=== PATIENT | female | born 1940 | race Caucasian/White ===

== ENCOUNTER 2019-05-20 09:48 | Observation (INO) | payer MEDICARE, MEDICAID, SELFPAY ==
--- NOTE | 2019-05-20 10:03 | DI.RAD.S_ITS ---
PROCEDURE: XR CHEST 1V INDICATIONS: chest pain TECHNIQUE: One view of the chest was acquired. COMPARISON: [facility], , CHEST 2 VIEW, 12/08/2010, 16:40. FINDINGS: Surgical changes and devices: None. Lungs and pleura: Lungs are clear. No pleural effusions or pneumothorax. Mediastinum: Mediastinal contours appear normal. Heart size is normal. There is aortic atherosclerosis. Bones and chest wall: No suspicious bony lesions. Overlying soft tissues appear unremarkable. IMPRESSION: Unremarkable chest. No acute cardiopulmonary process is evident. Dictated by: Dannie Welch M.D. on 05/20/2019 at 9:42 Approved by: Dannie Welch M.D. on 05/20/2019 at 9:43
[2019-05-20 10:06] VITALS: BP 126/53; PULSE 64; RESP 16; TEMP 35.9; O2SAT 98
--- NOTE | 2019-05-20 10:08 | ED_ITS ---
HPI - Chest Pain General Chief Complaint: Chest Pain Stated Complaint: chest problems Time Seen by Provider: 05/20/19 10:03 Source: patient Mode of arrival: Ambulatory Limitations: no limitations History of Present Illness HPI narrative: Patient is a 79-year-old female history of hypertension, hyperlipidemia and diabetes who presents with chest discomfort. She says about 4 5 days ago she had intense left-sided chest pain and left arm pain it lasted under 5 minutes while she was watching TV in her recliner. Since then she says her chest has felt heavy it is worse with resting. She says walking around does not bother her and she denies any shortness of breath. He says last night she did have some discomfort that woke her from her sleep and she had to go sleep in a recliner. However she denies any orthopnea or lower extremity edema. She has no known history of coronary artery disease MD complaint: chest pain Onset (ago): day(s) Duration: intermittent Pain location: left chest Severity: moderate Quality: heaviness Pain radiation: none Related Data Home Medications Medication Instructions Recorded Confirmed atenolol 50 mg PO DAILY #0 11/25/10 05/20/19 atorvastatin [Lipitor] 20 mg PO DAILY #0 11/25/10 05/20/19 glimepiride [Amaryl] 4 mg PO DAILY #0 11/25/10 05/20/19 metformin 1,000 mg PO BID #0 11/25/10 05/20/19 acetaminophen-codeine 1 tab PO QID #0 11/27/16 05/20/19 losartan 100 mg PO DAILY #0 11/27/16 05/20/19 triamterene-hydrochlorothiazid 1 tab PO DAILY #0 11/27/16 05/20/19 fexofenadine [Allergy Relief 180 mg PO DAILY 05/20/19 05/20/19 (fexofenadine)] Allergies Allergy/AdvReac Type Severity Reaction Status Date / Time Sulfa (Sulfonamide Allergy Severe ITCHING Unverified 08/15/17 12:16 Antibiotics) [SULFA (SULFONAMIDE ANTIBIOTICS)] Review of Systems Review of Systems Narrative: GENERAL: Denies chills, fatigue, malaise, fever, sweats, travel HEENT: Denies sinus pain, ear pain, sore throat, difficulty swallowing, neck pain RESPIRATORY: Denies dyspnea, cough, wheezing, hemoptysis, sputum. CARDIOVASCULAR: See HPI GASTROINTESTINAL: Denies nausea, vomiting, abdominal pain, diarrhea, constipation, melena. : Denies dysuria, frequency, incontinence, hematuria, urinary retention, flank pain. MUSCULOSKELETAL: Denies weakness, joint pain, or bony pain SKIN: No rash, no erythema, no pruritus NEUROLOGIC: Denies weakness, dizziness, headache, numbness, change in speech, confusion PSYCHIATRIC: No concerning psychosocial issues. 12 point review of systems is negative except for those stated above and HPI Patient History Medical History Diabetes (Acute) Hyperlipidemia (Acute) Hypertension (Acute) Surgical History History of knee replacement Status post ovarian cystectomy Social History Smoking Status: Never smoker Exam Initial Vital Signs Initial Vital Signs: Vital Signs Temperature 96.7 F L 05/20/19 10:06 Pulse Rate 64 05/20/19 10:06 Respiratory Rate 16 05/20/19 10:06 Blood Pressure 126/53 L 05/20/19 10:06 Pulse Oximetry 98 05/20/19 10:06 GENERAL: Well-appearing, well-nourished and in no acute distress. HEENT: Head atraumatic,EOMI, pupils reactive, face symmetric, moist mucous membranes CARDIOVASCULAR: Regular rate and rhythm without murmurs, rubs or gallops. RESPIRATORY: Breath sounds equal bilaterally, no wheezes rales or rhonchi. ABDOMEN: Soft, nontender. Normoactive bowel sounds all 4 quadrants. No guarding or rebound. EXTREMITIES: Normal range of motion, no clubbing or edema. Neurovascularly intact NEUROLOGICAL: Alert and oriented x4.Normal gait and speech. Cranial nerves II through XII grossly intact. SKIN: Warm, dry, no laceration, no petechiae, no rashes or lesions. Scores HEART Score Heart Score history: Moderately Suspicious Heart Score EKG: Normal Heart Score Age: > or = 65 years old Heart Score risk factors: > 3 risk factors or hx of atherosclerotic disease Heart Score troponin: < or = to normal limit Heart Score Total: 5 Course Orders Ordered: ED Orders 05/20/19 10:00 Complete Blood Count AUTO DIFF Stat Comprehensive Metabolic Panel Stat Lipase Stat Partial Thromboplastin Time Stat Prothrombin Time INR Stat Troponin & CK Cardiac Panel Stat 05/20/19 10:03 XR chest 1V Stat EKG-12 Lead Stat Nitroglycerin (Nitrostat) 0.4 mg SL [id number] PRN PRN Reason: Chest Pain Discontinued Medications Aspirin (Aspirin Chew) 324 mg PO NOW ONE Stop: 05/20/19 10:10 Last Admin: 05/20/19 10:20 Dose: 324 mg Documented by: LETICIA Vital Signs Vital signs: Vital Signs - 8 hr 05/20/19 10:06 05/20/19 11:05 Temperature 96.7 F L Pulse Rate 64 59 L Respiratory Rate 16 14 Blood Pressure 126/53 L Blood Pressure [Left Arm] 120/69 Pulse Oximetry 98 MDM - Chest Pain Lab Data Attestation: I reviewed the patient's lab results. Result diagrams: 05/20/19 10:00 05/20/19 10:00 Labs: Lab Results 05/20/19 05/20/19 05/20/19 Range/Units 10:00 10:00 10:00 WBC 6.7 (4.5-11.0) X10^3/uL RBC 4.20 (4.0-5.2) X10^6/uL Hgb 12.3 (12.0-16.0) g/dL Hct 37.8 (36-46) % MCV 90.2 (80-100) fL MCH 29.4 (26-34) PG MCHC 32.6 (30-36) % RDW 14.5 (11.6-14.8) % Plt Count 139 L (150-400) X10^3/uL Neut % (Auto) 46.8 L (50-75) % Lymph % (Auto) 39.4 (25-40) % [place] % (Auto) 5.5 (3-14) % Eos % (Auto) 7.4 H (2-4) % Baso % (Auto) 0.9 (0-2) % Neut # (Auto) 3100 (8418-1732) /uL Lymph # (Auto) 2600 (3143-9465) /uL [place] # (Auto) 400 (0-900) /uL Eos # (Auto) 500 H (0-450) /uL Baso # (Auto) 100 (0-100) /uL PT 11.5 (10.1-12.7) SECONDS INR 1.0 (0.9-1.3) APTT 29 (26.4-36.2) SECONDS Sodium 139 (137-145) mmol/L Potassium 4.4 (3.4-5.1) mmol/L Chloride 102 (98-107) mmol/L Carbon Dioxide 26 (22-32) mmol/L BUN 45 H (7-17) mg/dL Creatinine 1.20 H (0.52-1.04) mg/dL Estimated GFR 43.4 L (>60) mL/min BUN/Creatinine Ratio 37.5 H (6-22) Glucose 175 H (80-110) mg/dL Calcium 9.6 (8.4-10.2) mg/dL Total Bilirubin 0.8 (0.2-1.3) mg/dL AST 48 H (14-36) IU/L ALT 36 H (<35) IU/L Alkaline Phosphatase 65 (38-126) U/L Total Creatine Kinase 43 (30-135) U/L CK-MB (CK-2) TNP CK-MB (CK-2) Rel Index TNP Troponin I < 0.012 (0.01-0.034) ng/mL Total Protein 7.7 (6.3-8.2) g/dL Albumin 4.4 (3.5-5.0) g/dL Globulin 3.3 (1.7-4.1) g/dL Albumin/Globulin Ratio 1.3 (1.0-2.8) Lipase 195 (23-300) U/L Imaging Data Chest x-ray: Radiologist's Impression: PROCEDURE: XR CHEST 1V INDICATIONS: chest pain TECHNIQUE: One view of the chest was acquired. COMPARISON: [facility], CHEST 2 VIEW, 12/08/2010, 16:40. FINDINGS: Surgical changes and devices: None. Lungs and pleura: Lungs are clear. No pleural effusions or pneumothorax. Mediastinum: Mediastinal contours appear normal. Heart size is normal. There is aortic atherosclerosis. Bones and chest wall: No suspicious bony lesions. Overlying soft tissues appear unremarkable. IMPRESSION: Unremarkable chest. No acute cardiopulmonary process is evident. Dictated by: Dannie Welch M.D. on 05/20/2019 at 9:42 ECG Data Attestation: I personally reviewed and interpreted this ECG as follows: Prior ECG tracings: available for review Interpretation: Rhythm rate 66 p.r. interval 187 QRS 93 QTC 438 T-wave inversion noted in lead 3 only similar to previous [place] [address] changes MDM Narrative Medical decision making narrative: The patient is re-evaluated states that she now is having chest heaviness on the left side. However once nurse goes to give her nitroglycerin and the chest heaviness has resolved. She has multiple risk factors. Discussed case with Dr. Nieves who's happy to accept for observation Discharge Plan Departure Patient Disposition: Admitted as Observation Clinical Impression: Chest pain Qualifiers: Chest pain type: other chest pain Qualified Code(s): R07.89 - Other chest pain Discharge Date/Time: 05/20/19 11:59 Admit Date/Time: 05/20/19 11:24 Admit Provider: Mark Nieves
[2019-05-20 10:14] LABS: Add Manual Diff / Slide Review NO; Basophils Absolute Auto 100 /uL (0-100); Basophils Percent Auto 0.9 % (0-2); Eosinophils Absolute Auto 500 /uL (0-450); Eosinophils Percent Auto 7.4 % (2-4); Hematocrit 37.8 % (36-46); Hemoglobin 12.3 g/dL (12.0-16.0); Lymphocytes Absolute Auto 2600 /uL (1100-4500); Lymphocytes Percent Auto 39.4 % (25-40); Mean Corpuscular HGB Conc 32.6 % (30-36); Mean Corpuscular Hemoglobin 29.4 PG (26-34); Mean Corpuscular Volume 90.2 fL (80-100); Monocytes Absolute Auto 400 /uL (0-900); Monocytes Percent Auto 5.5 % (3-14); Neutrophils Absolute Auto 3100 /uL (1500-7000); Neutrophils Percent Auto 46.8 % (50-75); Platelet Count 139 X10^3/uL (150-400); Red Cell Distribution Width 14.5 % (11.6-14.8); White Blood Cell Count 6.7 X10^3/uL (4.5-11.0)
[2019-05-20] MEDS: ASPIRIN 81 MG CHEW TAB 324 MG PO (10:20)
[2019-05-20 10:21] LABS: Prothrombin Time 11.5 SECONDS (10.1-12.7)
[2019-05-20 10:23] LABS: PTT Partial Thromboplastin Tim 29 SECONDS (26.4-36.2)
[2019-05-20 10:25] LABS: Alanine Aminotransferase 36 IU/L (<35); Albumin 4.4 g/dL (3.5-5.0); Albumin Globulin Ratio 1.3 (1.0-2.8); Alkaline Phosphatase 65 U/L (38-126); Aspartate Aminotransferase 48 IU/L (14-36); BUN Creatinine Ratio 37.5 (6-22); Bilirubin Total 0.8 mg/dL (0.2-1.3); Blood Urea Nitrogen 45 mg/dL (7-17); Calcium 9.6 mg/dL (8.4-10.2); Carbon Dioxide 26 mmol/L (22-32); Chloride 102 mmol/L (98-107); Creatine Kinase 43 U/L (30-135); Estimated Glomerular Filt Rate 43.4 mL/min (>60); Globulin 3.3 g/dL (1.7-4.1); Glucose 175 mg/dL (80-110); Lipase 195 U/L (23-300); Potassium 4.4 mmol/L (3.4-5.1); Sodium 139 mmol/L (137-145); Total Protein 7.7 g/dL (6.3-8.2)
[2019-05-20 10:27] LABS: HEMOLYSIS 56 (0-50)
[2019-05-20 10:36] LABS: Troponin I < 0.012 ng/mL (0.01-0.034)
[2019-05-20 11:05] VITALS: BP 120/69; PULSE 59; RESP 14
--- NOTE | 2019-05-20 11:26 | PC.NURSE ---
Dr Tony ordered ntg prn for pain. pt denies chest pain at this time. Dr Tony aware
[2019-05-20 11:30] VITALS: BP 118/68; PULSE 63; RESP 18; O2SAT 100
[2019-05-20 12:20] VITALS: BP 104/56; PULSE 57; RESP 15; TEMP 36.9; O2SAT 97
[2019-05-20 12:23] VITALS: BMI 41.7
--- NOTE | 2019-05-20 14:24 | PC.NURSE ---
Admit/Discharge Pt admitted to room 103 from ER via wheelchair at 1210. Steady on feet, ambulated from wheelchair to bed. Denies any chest pain or heaviness. SB in the upper 50s. Valuables placed in safe - see admit assessment for further details on belongings. Oriented to room and to call light/tv/bed controls. Patient reported at about 1300 that she would like to sign herself out when her daughter arrives. States I was told I didn't have a heart attack and want to go home. Reviewed risks of leaving at this time and encouraged pt to stay overnight for monitoring and further testing. Pt acknowledged understanding. Dr. Nieves updated. Pt discharged AMA with daughter at 1420. Valuables retrieved from safe and signed back to pt. Glasses, walker, clothing, cell phone, purse, and wallet all with pt. Message left for Dr. Nieves to update on patient's AMA d/c.
== END 2019-05-20 14:20 | disposition left against medical advice (07) ==
LOC: ED 11:24 → AC 11:24 → ICU 12:00
PROVIDERS: Admitting Provider Family Medicine; Emergency Provider Emergency Medicine; PCP Student in an Organized Health Care Education/Training Program; Visit Provider Family Medicine
DX: Z53.29 Procedure and treatment not carried out because of patient's decision for other reasons (principal); R07.9 Chest pain, unspecified; I10 Essential (primary) hypertension; E78.5 Hyperlipidemia, unspecified; E11.9 Type 2 diabetes mellitus without complications; Z79.84 Long term (current) use of oral hypoglycemic drugs
CPT/HCPCS: 36415; 71045; 80053; 82550; 83690; 84484; 85025; 85610; 85730; 87797; 93005; 99284; 99285; G0378

== ENCOUNTER → 2019-06-18 11:11 | Outpatient (CLI) | payer MEDICARE, MEDICAID, SELFPAY ==
[2019-05-20 12:23] VITALS: BMI 41.7
--- NOTE | 2019-06-18 | DI.CT.S_ITS ---
PROCEDURE: CT ABDOMEN PELVIS W CON INDICATIONS: Unspecified abdominal pain TECHNIQUE: After the administration of oral and intravenous contrast, 5 mm thick sections acquired from the diaphragms to the symphysis. 5 mm thick coronal and sagittal reformats were performed. For radiation dose reduction, the following was used: automated exposure control, adjustment of mA and/or kV according to patient size. COMPARISON: None. FINDINGS: Image quality: Excellent. ABDOMEN: Lung bases: Lung bases are clear. Heart size is normal. Scattered atherosclerotic calcifications of the coronary arteries are noted. Solid organs: Liver is normal in size and enhancement. Diffuse hepatic steatosis. Gallbladder contains numerous rim calcified gallstones. No CT evidence for significant pericholecystic stranding or. Biliary system is non-dilated. Pancreas enhances normally. Spleen is normal in size and enhancement. No adrenal nodules. Kidneys are normal in size and enhancement, without hydronephrosis. Bilateral renal cortical irregularity/scarring likely related to remote infection. Peritoneum and bowel: Stomach, small bowel, and colon loops are normal in caliber and wall thickness. Scattered colonic diverticulosis predominantly in the sigmoid colon. No evidence for acute diverticulitis. Moderate fecal burden seen in the ascending and transverse colon. No free fluid or air. Nodes and vessels: No retroperitoneal or mesenteric adenopathy. Aorta and inferior vena cava are normal in caliber. Scattered atherosclerotic calcifications of the abdominal aorta and iliac vessels without aneurysmal dilatation. Miscellaneous: Lobulated fat-containing umbilical hernia without acute inflammation. PELVIS: Genitourinary: Bladder wall thickness is normal. The uterus is not visualized and presumably surgically absent. Miscellaneous: No inguinal hernias or adenopathy. Bones: No suspicious bony lesions. No acute vertebral body compression fractures. Multilevel spondylitic changes throughout the imaged spine. IMPRESSION: 1. Cholelithiasis. If there is clinical concern for persistent upper abdominal pain, further evaluation with ultrasound can be considered. 2. Colonic diverticulosis without evidence for acute diverticulitis. 3. Moderate fecal load visualized in the distal ascending colon, transverse colon, and proximal descending colon. 4. Fat containing umbilical hernia without acute inflammation. Dictated by: Ever Caceres M.D. on 06/18/2019 at 16:06 Approved by: Ever Caceres M.D. on 06/18/2019 at 16:15
== END ==
PROVIDERS: PCP Student in an Organized Health Care Education/Training Program; Referring Provider Student in an Organized Health Care Education/Training Program; Visit Provider Student in an Organized Health Care Education/Training Program
DX: R10.9 Unspecified abdominal pain (principal); K76.0 Fatty (change of) liver, not elsewhere classified; K80.20 Calculus of gallbladder without cholecystitis without obstruction; K57.30 Diverticulosis of large intestine without perforation or abscess without bleeding; K42.9 Umbilical hernia without obstruction or gangrene; I70.0 Atherosclerosis of aorta; I25.10 Atherosclerotic heart disease of native coronary artery without angina pectoris
CPT/HCPCS: 74177; Q9967

== ENCOUNTER → 2019-06-26 12:23 | Outpatient (CLI) | payer MEDICARE, MEDICAID, SELFPAY ==
--- NOTE | 2019-06-26 | DI.US.S_ITS ---
PROCEDURE: US ABDOMEN LIMITED INDICATIONS: RIGHT UPPER QUADRANT PAIN TECHNIQUE: Real-time focused scanning was performed of the abdomen, with image documentation. COMPARISON: None. FINDINGS: Hepatic echotexture is hyperechoic, coarse, consistent with underlying cirrhosis. The gallbladder contains stones, filling much of the gallbladder lumen with stones measuring up to 2 centimeters in dimension. The bile ducts are not distended. The pancreas could not be seen due to body habitus and bowel gas. IMPRESSION: Limited quality evaluation due to 2 body habitus and bowel gas. Multiple stones fill the gallbladder lumen. The liver parenchyma is quite poorly visualized but appears coarse, likely reflecting cirrhosis Dictated by: Tom Sigala M.D. on 06/26/2019 at 13:41 Approved by: Tom Sigala M.D. on 06/26/2019 at 13:44
== END ==
PROVIDERS: PCP Student in an Organized Health Care Education/Training Program; Referring Provider Student in an Organized Health Care Education/Training Program; Visit Provider Student in an Organized Health Care Education/Training Program
DX: R10.11 Right upper quadrant pain (principal); K80.20 Calculus of gallbladder without cholecystitis without obstruction
CPT/HCPCS: 76705

== ENCOUNTER → 2019-07-16 12:10 | Outpatient (CLI) | payer MEDICARE, MEDICAID, SELFPAY ==
[2019-07-03 09:40] VITALS: BMI 41.7
--- NOTE | 2019-07-17 17:07 | DI.NM.S_ITS ---
DATE OF SERVICE: 07/16/2019 PROCEDURE PERFORMED: Pharmacologic vasodilator stress and rest myocardial perfusion imaging with gating to assess ejection fraction and regional wall motion. ORDERING PROVIDER: Dr. Sindhu Green. INDICATION: The patient is a 79-year-old obese, diabetic female recently evaluated for chest discomfort. PHARMACOLOGIC STRESS: Per protocol, 0.4 mg of regadenoson was infused with a normal hemodynamic response. She had no chest discomfort. The resting ECG is normal and there are no ischemic changes with stress. Per protocol, 24.9 mCi of technetium-99m Myoview was injected and she was imaged 20 minutes later using a gated SPECT acquisition protocol. The previous day, she had been injected with 26.7 mCi of technetium-99m Myoview and imaged 30 minutes later, again using a gated SPECT protocol. FINDINGS: 1. RAW DATA: There is fair myocardial tracer uptake with marginal image quality, in part because of very prominent breast shadows that clearly produce significant attenuation artifact. Unfortunately, the patient was unable to lay prone. Her lung-heart ratio was normal at 0.29 with a normal TID ratio of 0.88. 2. QUANTITATED GATED SPECT: Post-stress ejection fraction is estimated at 75% without any focal wall motion abnormality and specifically the inferolateral wall appears to have normal contractility. The resting ejection fraction is 69% with a similar contraction pattern and a resting end-diastolic volume of 110 mL. 3. MYOCARDIAL PERFUSION IMAGING: Post-stress supine images are of marginal quality but there is a mild perfusion defect in the proximal inferior wall, extending into the mid to distal inferolateral wall in a pattern consistent with diaphragmatic attenuation artifact. There are no prone images to assess for this. The resting images show an identical perfusion pattern without any areas of improvement. Given the absence of any wall motion abnormality in this area, this most likely represents attenuation artifact, although previous infarction cannot be entirely excluded. CONCLUSION: 1. Probable normal myocardial perfusion study but with mildly reduced sensitivity because of marginal image quality. 2. Small to moderate fixed proximal inferior and mid to distal inferolateral perfusion defect that likely reflects attenuation artifact given the absence of any wall motion abnormality in this distribution, but a previous nontransmural infarction cannot be entirely excluded. There is no compelling evidence for myocardial ischemia. 3. Normal left ventricular systolic function without any focal wall motion abnormality. 4. No angina or ECG evidence of ischemia with pharmacologic vasodilator stress. Madisyn Covarrubias - Claire doc#: [id number]/job#: [id number] dd: 07/17/2019 16:30:00 dt: 07/17/2019 16:53:00 DICTATING MD/COPIES TO: Mark Barkley MD; Sindhu Green MD COPIES MNE: KEILA;
== END ==
PROVIDERS: PCP Student in an Organized Health Care Education/Training Program; Referring Provider Student in an Organized Health Care Education/Training Program; Visit Provider Student in an Organized Health Care Education/Training Program
DX: R07.89 Other chest pain (principal); E11.9 Type 2 diabetes mellitus without complications; E66.9 Obesity, unspecified; K80.50 Calculus of bile duct without cholangitis or cholecystitis without obstruction
CPT/HCPCS: 78452; 93017; 99214; A9502; J2785

== ENCOUNTER → 2019-07-23 12:53 | Outpatient (CLI) | payer MEDICARE, MEDICAID, SELFPAY ==
[2019-07-03 09:40] VITALS: BMI 41.7
--- NOTE | 2019-07-23 | DI.MG.S_ITS ---
BILATERAL DIGITAL DIAGNOSTIC MAMMOGRAM 3D/2D: 07/23/2019 CLINICAL: Left breast pain. Baseline. No prior exams were available for comparison. The tissue of both breasts is predominantly fatty. There is no abnormality seen in the left breast to correspond with the palpable abnormality at 11 o'clock in the posterior depth. There is possible irregular architectural distortion in the left breast at 1 o'clock middle depth. This is less prominent with additional views. No other significant masses, calcifications, or other findings are seen in either breast. IMPRESSION: INCOMPLETE: NEEDS ADDITIONAL IMAGING EVALUATION There is no abnormality seen in the left breast to correspond with the palpable abnormality at 11 o'clock in the posterior depth, however, ultrasound is recommended. The possible irregular architectural distortion in the left breast is indeterminate. An ultrasound is recommended. This was performed immediately following this exam. This exam was interpreted at Station ID: [id number]. NOTE: For mammograms, a report in lay terms will be sent to the patient. Approximately 15% of breast malignancies will not be visualized mammographically. In the management of a palpable breast mass, a negative mammogram must not discourage biopsy of a clinically suspicious lesion. Electronically Signed By: Judie guerra/:07/23/2019 14:07:35 ACR BI-RADS Category 0: Incomplete [id number]
--- NOTE | 2019-07-23 | DI.US.S_ITS ---
LIMITED ULTRASOUND OF LEFT BREAST: 07/23/2019 CLINICAL: Left breast pain and focal area of asymetry. No prior exams were available for comparison. Real-time ultrasound of the left breast 12 o'clock region was performed. [place] scale images of the real-time examination were reviewed. No significant abnormalities were seen sonographically in the left breast. Specifically, no finding to correspond to the patient's palpable abnormality 11 cm from nipple at 12:00. Additionally, no finding in the 12:00 area more anterior in the breast to correspond to the mammographic finding of possible architectural distortion. IMPRESSION: PROBABLY BENIGN No sonographic findings in the area of palpable abnormality or in the area of architectural distortion on mammogram. This area is probably benign fibrous tissue. A follow-up left mammogram in 6 months is recommended to demonstrate stability given lack of prior studies for comparison. Findings and recommendations were conveyed to the patient at time of exam. This exam was interpreted at Station ID: [id number]. Electronically Signed By: Judie guerra/:07/23/2019 14:33:23 letter sent: Followup Recommended Ultrasound BI-RADS: 3 Probably benign
== END ==
PROVIDERS: PCP Student in an Organized Health Care Education/Training Program; Referring Provider Student in an Organized Health Care Education/Training Program; Visit Provider Student in an Organized Health Care Education/Training Program
DX: R92.8 Other abnormal and inconclusive findings on diagnostic imaging of breast (principal); N64.4 Mastodynia; N64.89 Other specified disorders of breast
CPT/HCPCS: 76642; 77066; G0279

== ENCOUNTER → 2020-02-05 13:55 | Outpatient (CLI) | payer MEDICARE, MEDICAID, SELFPAY ==
[2019-07-03 09:40] VITALS: BMI 41.7
--- NOTE | 2020-02-05 | DI.MG.S_ITS ---
UNILATERAL LEFT DIGITAL DIAGNOSTIC MAMMOGRAM 3D/2D SHORT-TERM FOLLOW-UP: 02/05/2020 CLINICAL: Short term follow up for the left breast. Comparison is made to exams dated: 07/23/2019 ultrasound and 07/23/2019 mammogram [facility]. The tissue of left breast is predominantly fatty. No significant masses, calcifications, or other findings are seen in the breast. IMPRESSION: NEGATIVE There is no mammographic evidence of malignancy. Return to annual mammogram screening schedule is recommended. Findings and recommendations were conveyed to the patient at time of exam. This exam was interpreted at Station ID: [id number]. NOTE: For mammograms, a report in lay terms will be sent to the patient. Approximately 15% of breast malignancies will not be visualized mammographically. In the management of a palpable breast mass, a negative mammogram must not discourage biopsy of a clinically suspicious lesion. Electronically Signed By: Judie guerra/:02/05/2020 14:44:19 letter sent: Normal Exam ACR BI-RADS Category 1: Negative [id number]
== END ==
PROVIDERS: PCP Student in an Organized Health Care Education/Training Program; Referring Provider Student in an Organized Health Care Education/Training Program; Visit Provider Student in an Organized Health Care Education/Training Program
DX: R92.8 Other abnormal and inconclusive findings on diagnostic imaging of breast (principal)
CPT/HCPCS: 77065; G0279

== ENCOUNTER 2020-05-05 17:08 | Emergency (ER) | payer MEDICARE, MEDICAID, SELFPAY ==
[2019-07-03 09:40] VITALS: BMI 41.7
[2020-05-05] VITALS (22 sets, daily range): BP systolic 106–135; BP diastolic 55–91; PULSE 61–74; RESP 16–18; TEMP 36.8–36.9; O2SAT 98–100; BMI 39.9
[2020-05-05 18:00] LABS: Add Manual Diff / Slide Review NO; Basophils Absolute Auto 100 /uL (0-100); Basophils Percent Auto 0.9 % (0-2); Eosinophils Absolute Auto 400 /uL (0-450); Eosinophils Percent Auto 4.6 % (2-4); Hematocrit 28.5 % (36-46); Hemoglobin 9.2 g/dL (12.0-16.0); Lymphocytes Absolute Auto 3300 /uL (1100-4500); Lymphocytes Percent Auto 36.9 % (25-40); Mean Corpuscular HGB Conc 32.1 % (30-36); Mean Corpuscular Hemoglobin 28.7 PG (26-34); Mean Corpuscular Volume 89.3 fL (80-100); Monocytes Absolute Auto 400 /uL (0-900); Monocytes Percent Auto 4.5 % (3-14); Neutrophils Absolute Auto 4800 /uL (1500-7000); Neutrophils Percent Auto 53.1 % (50-75); Red Cell Distribution Width 17.1 % (11.6-14.8)
[2020-05-05 18:02] LABS: Alanine Aminotransferase 22 IU/L (<35); Albumin Globulin Ratio 1.3 (1.0-2.8); Alkaline Phosphatase 60 U/L (38-126); Aspartate Aminotransferase 24 IU/L (14-36); BUN Creatinine Ratio 31.3 (6-22); Bilirubin Total 0.6 mg/dL (0.2-1.3); Blood Urea Nitrogen 45 mg/dL (7-17); Calcium 8.9 mg/dL (8.4-10.2); Carbon Dioxide 22 mmol/L (22-32); Chloride 104 mmol/L (98-107); Estimated Glomerular Filt Rate 35.2 mL/min (>60); Glucose 190 mg/dL (80-110); HEMOLYSIS < 15 (0-50); Potassium 4.7 mmol/L (3.4-5.1); Sodium 134 mmol/L (137-145)
--- NOTE | 2020-05-05 18:08 | ED.RECABL ---
HPI - Recheck/Abnormal Lab/Rx General Chief Complaint: Recheck/Abnormal Lab/Rx Stated Complaint: STATES SENT FOR BLOOD TRANSFUSION Time Seen by Provider: 05/05/20 18:01 Source: patient and old records reviewed Mode of arrival: Ambulatory Limitations: no limitations History of Present Illness HPI narrative: This is a 79-year-old female who is sent to the emergency department for low platelets. Platelets were 5 on outpatient labs that were drawn 07/2019 patient states that she has never been told this in the past but she noted having bruising on her hand in February and has increasing bruising, petechiae and changes since then. Patient denies any bleeding other than nose bleeds. No hemoptysis, no hematemesis, no melena or bright red blood with stools. She states occasionally mild headaches but nothing recently. No vision changes. Occasional mild chest pain. No shortness of breath. No nausea, no vomiting. No diarrhea constipation. She states she has to urinate hour to every hour and a half secondary to a prior bladder surgery and chronic bladder issues and is requesting a [place] catheter. Patient has diabetes type 2, dyslipidemia, hypertension. She has known gallstones. She states she had bladder surgery, patient had a large ovarian tumor removed remotely. Denies allergies. No tobacco, alcohol or illicit. Her primary care physician is Sindhu Green. Related Data Home Medications Medication Instructions Recorded Confirmed atenolol 50 mg PO DAILY #0 11/25/10 07/16/19 atorvastatin [Lipitor] 20 mg PO DAILY #0 11/25/10 07/16/19 glimepiride [Amaryl] 4 mg PO DAILY #0 11/25/10 07/16/19 metformin 1,000 mg PO BID #0 11/25/10 07/16/19 acetaminophen-codeine 1 tab PO QID #0 11/27/16 07/16/19 losartan 100 mg PO DAILY #0 11/27/16 07/16/19 triamterene-hydrochlorothiazid 1 tab PO DAILY #0 11/27/16 07/16/19 fexofenadine [Allergy Relief 180 mg PO DAILY 05/20/19 07/16/19 (fexofenadine)] Lactobacillus cap PO 07/16/19 07/16/19 no.51-Bifidobacterium no.4 50 billion cell capsule Allergies Allergy/AdvReac Type Severity Reaction Status Date / Time Sulfa (Sulfonamide Allergy Severe ITCHING Verified 05/05/20 17:17 Antibiotics) [SULFA (SULFONAMIDE ANTIBIOTICS)] Review of Systems Review of Systems ROS Unobtainable: All systems reviewed & are unremarkable except as noted in HPI and below Patient History Medical History Chest pain Cystocele with rectocele Diabetes Hyperlipidemia Hypertension Surgical History History of knee replacement Status post ovarian cystectomy Social History Smoking Status: Never smoker Smoking Status: Never smoker alcohol intake frequency: holidays/special occasions only Substance Use Type: does not use Exam Narrative Exam Narrative: GEN: well nourished, well appearing elderly female, alert and oriented x 3, patient appears to be in mild distress. HEENT: Atraumatic, pupils are equal round reactive to light, extraocular movements are intact, nares are clear. HEART: Regular rate and rhythm without murmur, clicks, rubs. LUNGS:Lungs clear to auscultation, no wheezes, rales, crackles, chest moves symmetrically ABD:bowel sounds normal, soft, non-tender, no guarding, rebound, rigidity, no masses noted, no hepatosplenomegaly MSCL: Non-tender, no muscle atrophy, muscles strength 5/5 upper and lower extremities, full range of motion, normal gait NEURO:CN 2-12 intact, sensation normal SKIN: Patient has multiple areas of ecchymosis, petechiae and hematoma on her torso, extremities and abdomen. Initial Vital Signs Initial Vital Signs: Vital Signs Temperature 98.3 F 05/05/20 17:10 Pulse Rate 74 05/05/20 17:10 Respiratory Rate 18 05/05/20 17:10 Blood Pressure 135/62 05/05/20 17:10 Pulse Oximetry 99 05/05/20 17:10 Scores GCS [place] coma scale eye opening: Spontaneous Aaliyah coma scale verbal response: Orientated Aaliyah coma scale motor response: Obey commands Aaliyah coma scale total score: 15 Course Orders Ordered: ED Orders 05/05/20 17:36 BNP [NT-proBNP (BNP-Adult 18+)] Stat Complete Blood Count AUTO DIFF Stat Comprehensive Metabolic Panel Stat Platelets Stat Thyroid Stimulating Hormone Stat Type and Screen Stat 05/05/20 18:20 CT head/brain wo con Stat 05/05/20 18:25 COVID19 Stat Reevaluation(s) Reevaluation #1: Patient updated on lab findings, platelets are in route. Imaging was pushed to [facility] and waiting call back Time: 20:41 Consultations Consultation #1: Spoke with ED physician at [facility], Dr. Ramos accepts for transfer. Plan for ALS ground. Will start platelets if the arrive prior to transport. Plan for transfer second to patient requiring multiple specialties and platelets come from [place]. Time: 20:52 Vital Signs Vital signs: Vital Signs - 8 hr 05/05/20 17:10 05/05/20 18:45 05/05/20 18:47 Temperature 98.3 F Pulse Rate 74 64 62 Respiratory Rate 18 18 Blood Pressure 135/62 117/55 L Pulse Oximetry 99 98 100 05/05/20 19:09 05/05/20 19:10 05/05/20 19:30 Temperature Pulse Rate 69 67 70 Respiratory Rate 16 Blood Pressure 126/91 H 106/61 Pulse Oximetry 100 100 100 05/05/20 20:00 05/05/20 20:30 05/05/20 21:00 Temperature Pulse Rate 64 65 Respiratory Rate Blood Pressure 113/56 L 110/55 L 124/58 L Pulse Oximetry 100 100 05/05/20 21:25 05/05/20 21:30 05/05/20 21:41 Temperature 98.3 F 98.5 F Pulse Rate 69 67 63 Respiratory Rate 16 16 Blood Pressure 115/56 L 116/57 L 114/56 L Pulse Oximetry 99 99 05/05/20 21:44 05/05/20 22:00 05/05/20 22:01 Temperature Pulse Rate 63 63 63 Respiratory Rate Blood Pressure 114/56 L 119/58 L Pulse Oximetry 100 99 99 05/05/20 22:15 05/05/20 22:25 05/05/20 22:26 Temperature 98.3 F Pulse Rate 64 61 62 Respiratory Rate 16 16 Blood Pressure 119/58 L 112/59 L 112/59 L Pulse Oximetry 100 05/05/20 22:30 05/05/20 22:41 Temperature 98.4 F Pulse Rate 61 63 Respiratory Rate 16 Blood Pressure 115/59 L 115/58 L Pulse Oximetry 100 MDM - Recheck/Abnormal Lab/Rx Lab Data Attestation: I reviewed the patient's lab results. Result diagrams: 05/05/20 17:36 05/05/20 17:36 Labs: Lab Results 05/05/20 05/05/20 05/05/20 Range/Units 17:36 17:36 17:36 WBC 9.0 (4.5-11.0) X10^3/uL RBC 3.20 L (4.0-5.2) X10^6/uL Hgb 9.2 L (12.0-16.0) g/dL Hct 28.5 L (36-46) % MCV 89.3 (80-100) fL MCH 28.7 (26-34) PG MCHC 32.1 (30-36) % RDW 17.1 H (11.6-14.8) % Plt Count 3 L* (150-400) X10^3/uL Neut % (Auto) 53.1 (50-75) % Lymph % (Auto) 36.9 (25-40) % [place] % (Auto) 4.5 (3-14) % Eos % (Auto) 4.6 H (2-4) % Baso % (Auto) 0.9 (0-2) % Neut # (Auto) 4800 (1593-7962) /uL Lymph # (Auto) 3300 (4904-6295) /uL [place] # (Auto) 400 (0-900) /uL Eos # (Auto) 400 (0-450) /uL Baso # (Auto) 100 (0-100) /uL RBC Morphology See below Polychromasia 1+ H Poikilocytosis 1+ H Anisocytosis 1+ H Sodium 134 L (137-145) mmol/L Potassium 4.7 (3.4-5.1) mmol/L Chloride 104 (98-107) mmol/L Carbon Dioxide 22 (22-32) mmol/L BUN 45 H (7-17) mg/dL Creatinine 1.44 H (0.52-1.04) mg/dL Estimated GFR 35.2 L (>60) mL/min BUN/Creatinine Ratio 31.3 H (6-22) Glucose 190 H (80-110) mg/dL Calcium 8.9 (8.4-10.2) mg/dL Total Bilirubin 0.6 (0.2-1.3) mg/dL AST 24 (14-36) IU/L ALT 22 (<35) IU/L Alkaline Phosphatase 60 (38-126) U/L NT-Pro-B Natriuret Pep 372 (<450) pg/mL Total Protein 7.0 (6.3-8.2) g/dL Albumin 4.0 (3.5-5.0) g/dL Globulin 3.0 (1.7-4.1) g/dL Albumin/Globulin Ratio 1.3 (1.0-2.8) TSH (0.47-4.68) uIU/mL SARS-CoV-2 (PCR) (Negative) Blood Type A Positive Antibody Screen Negative 05/05/20 05/05/20 Range/Units 17:36 18:25 WBC (4.5-11.0) X10^3/uL RBC (4.0-5.2) X10^6/uL Hgb (12.0-16.0) g/dL Hct (36-46) % MCV (80-100) fL MCH (26-34) PG MCHC (30-36) % RDW (11.6-14.8) % Plt Count (150-400) X10^3/uL Neut % (Auto) (50-75) % Lymph % (Auto) (25-40) % [place] % (Auto) (3-14) % Eos % (Auto) (2-4) % Baso % (Auto) (0-2) % Neut # (Auto) (7562-0111) /uL Lymph # (Auto) (0693-9203) /uL [place] # (Auto) (0-900) /uL Eos # (Auto) (0-450) /uL Baso # (Auto) (0-100) /uL RBC Morphology Polychromasia Poikilocytosis Anisocytosis Sodium (137-145) mmol/L Potassium (3.4-5.1) mmol/L Chloride (98-107) mmol/L Carbon Dioxide (22-32) mmol/L BUN (7-17) mg/dL Creatinine (0.52-1.04) mg/dL Estimated GFR (>60) mL/min BUN/Creatinine Ratio (6-22) Glucose (80-110) mg/dL Calcium (8.4-10.2) mg/dL Total Bilirubin (0.2-1.3) mg/dL AST (14-36) IU/L ALT (<35) IU/L Alkaline Phosphatase (38-126) U/L NT-Pro-B Natriuret Pep (<450) pg/mL Total Protein (6.3-8.2) g/dL Albumin (3.5-5.0) g/dL Globulin (1.7-4.1) g/dL Albumin/Globulin Ratio (1.0-2.8) TSH 1.90 (0.47-4.68) uIU/mL SARS-CoV-2 (PCR) Negative (Negative) Blood Type Antibody Screen Imaging Data CT scan - head: Radiologist's Impression: [address] [id number] Scan ReportSigned Patient: Madisyn Covarrubias BMR#: [id number]: 2Acct:[id number]/Sex: 79 / FDate of Service: 05/05/20Loc: EDAccession Number: [id number] Procedure: CT head/brain wo con Ordering Provider: Gwendolyn Guzmán D.O. PROCEDURE: CT HEAD/BRAIN WO CON INDICATIONS: platelets of 3, no symptoms TECHNIQUE: Noncontrast 4.5 mm thick angled axial sections acquired from the foramen magnum to the vertex, with coronal and sagittal reformats. For radiation dose reduction, the following was used: automated exposure control, adjustment of mA and/or kV according to patient size. COMPARISON: [facility], CT, HEAD WITHOUT CONTRAST, 08/23/2010, 15:41. FINDINGS: Image quality: Excellent. CSF spaces: Basal cisterns are patent. No extra-axial fluid collections. The ventricles are symmetric in size and shape. Brain: A tiny hyperdense focus is seen within the left posterior temporal lobe measuring 0.5 x 0.5 x 0.[address] number of 67 Hounsfield units. Findings are best seen on image 14 of axial series 2 and image 34 of coronal series 4. . There is cerebral volume loss for age, with resultant ventricular and sulcal prominence. There are periventricular and deep white matter chronic small vessel ischemic changes. There is intracranial internal carotid artery atherosclerosis. Skull and face: Calvarium and visualized facial bones appear intact, without suspicious lesions. Sinuses: Visualized sinuses and mastoids are clear. IMPRESSION: 5 x 5 x 4 mm hyperdense focus in the posterior left temporal lobe is suspicious for a very small acute intraparenchymal hematoma. There is no significant surrounding edema or mass effect. Findings were discussed with the ordering provider, Dr. Guzmán, by telephone on 05/05/2020 at 7:31 PM. Dictated by: Harlan Rodriguez M.D. on 05/05/2020 at 19:25 Approved by: Harlan Rodriguez M.D. on 05/05/2020 at 19:34 [facility] Narrative Medical decision making narrative: Patient arrives with outpatient labs showing platelets of 5 repeat shows platelets of 3. Head CT was ordered patient has been asymptomatic but has high risk of spontaneous bleed and there does appear to be a small bleed noted, no mass effect or edema appreciated. Patient requiring platelet transfusion which is not available here we obtain or platelets from [place] which is a [address], she also needs multiple specialty care gluten neuro surgery which we do not have available. 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 Labs otherwise do not show any major new abnormalities, hemoglobin is 9 down from 12 in May of 2019. Chronic kidney disease appears stable. Negative neuro evaluation. Critical Care Time Critical Care Time Critical Care Time: Yes Total Critical Care Time: 45 Attestation: The high probability of a clinically significant, sudden or life threatening deterioration of the [neurologic] system(s) required my full and direct attention, intervention and personal management. The aggregate critical care time was [45] minutes. This time is in addition to time spent performing reported procedures but includes the following: [x] Data Review and interpretation [x] Patient assessment and monitoring of vital signs [x] Documentation [x] Medication orders and management Discharge Plan Departure Patient Disposition: Xfer [facility] Clinical Impression: Thrombocytopenia, Intracranial bleed Prescriptions: No Action atorvastatin [Lipitor] 20 MG tablet 20 mg PO DAILY Qty: 0 RF: 0 metformin 1,000 MG tablet 1,000 mg PO BID Qty: 0 RF: 0 glimepiride [Amaryl] 4 MG tablet 4 mg PO DAILY Qty: 0 RF: 0 atenolol 50 MG tablet 50 mg PO DAILY Qty: 0 RF: 0 triamterene-hydrochlorothiazid 37.5 MG/25 MG tablet 1 tab PO DAILY Qty: 0 RF: 0 losartan 100 MG tablet 100 mg PO DAILY Qty: 0 RF: 0 acetaminophen-codeine 30 MG/300 MG tablet 1 tab PO QID Qty: 0 RF: 0 up4 Probiotics Ultra 50 billion cell capsule PO RF: 0 fexofenadine [Allergy Relief (fexofenadine)] 180 mg Tablet 180 mg PO DAILY RF: 0 Referrals: Sindhu Green MD [Primary Care Provider] -
[2020-05-05 18:11] LABS: NT-proBNP (BNP-Adult 18+) 372 pg/mL (<450)
[2020-05-05 18:15] LABS: Platelet Count 3 X10^3/uL (150-400)
[2020-05-05 18:17] LABS: Anisocytosis 1+; Poikilocytosis 1+; Polychromasia 1+
--- NOTE | 2020-05-05 18:20 | DI.CT.S_ITS ---
PROCEDURE: CT HEAD/BRAIN WO CON INDICATIONS: platelets of 3, no symptoms TECHNIQUE: Noncontrast 4.5 mm thick angled axial sections acquired from the foramen magnum to the vertex, with coronal and sagittal reformats. For radiation dose reduction, the following was used: automated exposure control, adjustment of mA and/or kV according to patient size. COMPARISON: [facility], CT, HEAD WITHOUT CONTRAST, 08/23/2010, 15:41. FINDINGS: Image quality: Excellent. CSF spaces: Basal cisterns are patent. No extra-axial fluid collections. The ventricles are symmetric in size and shape. Brain: A tiny hyperdense focus is seen within the left posterior temporal lobe measuring 0.5 x 0.5 x 0.[address] number of 67 Hounsfield units. Findings are best seen on image 14 of axial series 2 and image 34 of coronal series 4. . There is cerebral volume loss for age, with resultant ventricular and sulcal prominence. There are periventricular and deep white matter chronic small vessel ischemic changes. There is intracranial internal carotid artery atherosclerosis. Skull and face: Calvarium and visualized facial bones appear intact, without suspicious lesions. Sinuses: Visualized sinuses and mastoids are clear. IMPRESSION: 5 x 5 x 4 mm hyperdense focus in the posterior left temporal lobe is suspicious for a very small acute intraparenchymal hematoma. There is no significant surrounding edema or mass effect. Findings were discussed with the ordering provider, Dr. Guzmán, by telephone on 05/05/2020 at 7:31 PM. Dictated by: Harlan Rodriguez M.D. on 05/05/2020 at 19:25 Approved by: Harlan Rodriguez M.D. on 05/05/2020 at 19:34
[2020-05-05 18:48] LABS: COVID19 -Nasal RAPID Negative (Negative)
== END 2020-05-05 23:07 | disposition short-term general hospital (02) ==
PROVIDERS: Emergency Medicine; Emergency Provider Emergency Medicine; PCP Student in an Organized Health Care Education/Training Program
DX: D69.6 Thrombocytopenia, unspecified (principal); I62.9 Nontraumatic intracranial hemorrhage, unspecified; E11.9 Type 2 diabetes mellitus without complications; E78.5 Hyperlipidemia, unspecified; I10 Essential (primary) hypertension; Z20.828 Contact with and (suspected) exposure to other viral communicable diseases
CPT/HCPCS: 36415; 36430; 70450; 80053; 83880; 84443; 85025; 86850; 86900; 86901; 86945; 87635; 99284; 99291; P9016; P9035

== ENCOUNTER 2020-05-17 18:30 | Emergency (ER) | payer MEDICARE, MEDICAID, SELFPAY ==
[2019-07-03 09:40] VITALS: BMI 41.7
[2020-05-17 18:32] VITALS: BP 128/67; PULSE 128; RESP 24; TEMP 36.3; O2SAT 100
[2020-05-17 19:11] LABS: Add Manual Diff / Slide Review NO; Basophils Absolute Auto 100 /uL (0-100); Basophils Percent Auto 0.8 % (0-2); Eosinophils Absolute Auto 300 /uL (0-450); Eosinophils Percent Auto 3.1 % (2-4); Hemoglobin 10.6 g/dL (12.0-16.0); Lymphocytes Absolute Auto 3100 /uL (1100-4500); Lymphocytes Percent Auto 32.8 % (25-40); Mean Corpuscular HGB Conc 32.2 % (30-36); Mean Corpuscular Hemoglobin 28.3 PG (26-34); Mean Corpuscular Volume 87.9 fL (80-100); Monocytes Absolute Auto 500 /uL (0-900); Monocytes Percent Auto 5.6 % (3-14); Neutrophils Absolute Auto 5400 /uL (1500-7000); Neutrophils Percent Auto 57.7 % (50-75); Prothrombin Time 11.3 SECONDS (10.1-12.7); Red Blood Cell Count 3.75 X10^6/uL (4.0-5.2); Red Cell Distribution Width 16.6 % (11.6-14.8); White Blood Cell Count 9.4 X10^3/uL (4.5-11.0)
[2020-05-17 19:13] LABS: PTT Partial Thromboplastin Tim 27 SECONDS (26.4-36.2); Platelet Count 24 X10^3/uL (150-400)
[2020-05-17 19:32] LABS: Platelet Estimate Decreased on smear; RBC Morphology Normal Morphology
[2020-05-17 19:33] LABS: Alanine Aminotransferase 27 IU/L (<35); Albumin 3.7 g/dL (3.5-5.0); Albumin Globulin Ratio 1.3 (1.0-2.8); Alkaline Phosphatase 59 U/L (38-126); Aspartate Aminotransferase 30 IU/L (14-36); Bilirubin Total 0.4 mg/dL (0.2-1.3); Blood Urea Nitrogen 30 mg/dL (7-17); Calcium 9.3 mg/dL (8.4-10.2); Carbon Dioxide 22 mmol/L (22-32); Chloride 105 mmol/L (98-107); Estimated Glomerular Filt Rate 47.4 mL/min (>60); Globulin 2.9 g/dL (1.7-4.1); Glucose 279 mg/dL (80-110); HEMOLYSIS 49 (0-50); Potassium 4.7 mmol/L (3.4-5.1); Sodium 135 mmol/L (137-145); Total Protein 6.6 g/dL (6.3-8.2)
--- NOTE | 2020-05-17 19:35 | ED_ITS ---
HPI - Recheck/Abnormal Lab/Rx General Chief Complaint: Recheck/Abnormal Lab/Rx Stated Complaint: TOVA GLEZ 13 Time Seen by Provider: 05/17/20 19:25 Source: patient Mode of arrival: Ambulatory Limitations: no limitations History of Present Illness HPI narrative: Patient is a 80-year-old female who at the end of last month was here in the emergency department and diagnosed with thrombocytopenia. She was transferred to [facility] and subsequently received several platelet transfusions. 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 When she was discharged she stated that her platelet levels were greater than 100,000. She was placed on steroids. She has completed the course of steroids. Had a fo llow-up lab draw at the end of last week and stated that her platelet count was in the 40,000 range. She had a repeat blood draw today and was called by the on-call provider asking her to come to the emergency department because she reports that she was told her [place] count was [address]0002. She states she is having some bruising but no other indication of bleeding. She has no follow-up specifically scheduled with Hematology at [facility]. She was told to follow-up with a local cemetery keeper. Related Data Home Medications Medication Instructions Recorded Confirmed atenolol 50 mg PO DAILY #0 11/25/10 07/16/19 atorvastatin [Lipitor] 20 mg PO DAILY #0 11/25/10 07/16/19 glimepiride [Amaryl] 4 mg PO DAILY #0 11/25/10 07/16/19 metformin 1,000 mg PO BID #0 11/25/10 07/16/19 acetaminophen-codeine 1 tab PO QID #0 11/27/16 07/16/19 losartan 100 mg PO DAILY #0 11/27/16 07/16/19 triamterene-hydrochlorothiazid 1 tab PO DAILY #0 11/27/16 07/16/19 fexofenadine [Allergy Relief 180 mg PO DAILY 05/20/19 07/16/19 (fexofenadine)] Lactobacillus cap PO 07/16/19 07/16/19 no.51-Bifidobacterium no.4 50 billion cell capsule Allergies Allergy/AdvReac Type Severity Reaction Status Date / Time Sulfa (Sulfonamide Allergy Severe ITCHING Verified 05/05/20 17:17 Antibiotics) [SULFA (SULFONAMIDE ANTIBIOTICS)] Review of Systems Constitutional Constitutional: Denies headache(s) ENT Ears, Nose, Mouth, and Throat: Denies headache(s) Cardiovascular Cardiovascular: Denies chest pain and Denies dyspnea Respiratory Respiratory: Denies dyspnea Gastrointestinal Gastrointestinal: Denies abdominal pain and Denies vomiting Integumentary/Breasts Comments: Bruises easily Neurologic Neurologic: Denies headache(s) Hematologic/Lymphatic Hematologic/Lymphatic: Reports easy bruising Allergic/Immunologic Allergic/Immunologic: Denies urticaria Patient History Medical History Acute idiopathic thrombocytopenic purpura Chest pain Cystocele with rectocele Diabetes Hyperlipidemia Hypertension Surgical History History of knee replacement Status post ovarian cystectomy Social History Smoking Status: Never smoker Smoking Status: Never smoker alcohol intake frequency: holidays/special occasions only Substance Use Type: does not use Exam Initial Vital Signs Initial Vital Signs: Vital Signs Temperature 97.4 F L 05/17/20 18:32 Pulse Rate 128 H 05/17/20 18:32 Respiratory Rate 24 05/17/20 18:32 Blood Pressure 128/67 05/17/20 18:32 Pulse Oximetry 100 05/17/20 18:32 Const General: cooperative and comfortable HENMT Head: normal to inspection and normocephalic Resp Effort & Inspection: normal respiratory effort Cardio Rate: tachycardic Skin Other: Multiple bruises in various stages of healing Neuro General: patient alert, patient awake and patient oriented x3 Extrem General: normal to inspection Psych Appearance: well kempt Course Orders Ordered: ED Orders 05/17/20 18:55 Complete Blood Count AUTO DIFF Stat Comprehensive Metabolic Panel Stat Partial Thromboplastin Time Stat Prothrombin Time INR Stat Type and Screen Stat Vital Signs Vital signs: Vital Signs - 8 hr 05/17/20 18:32 Temperature 97.4 F L Pulse Rate 128 H Respiratory Rate 24 Blood Pressure 128/67 Pulse Oximetry 100 MDM - Recheck/Abnormal Lab/Rx Lab Data Attestation: I reviewed the patient's lab results. Result diagrams: 05/17/20 18:55 05/17/20 18:55 Labs: Lab Results 05/17/20 05/17/20 05/17/20 Range/Units 18:55 18:55 18:55 WBC 9.4 (4.5-11.0) X10^3/uL RBC 3.75 L (4.0-5.2) X10^6/uL Hgb 10.6 L (12.0-16.0) g/dL Hct 33.0 L (36-46) % MCV 87.9 (80-100) fL MCH 28.3 (26-34) PG MCHC 32.2 (30-36) % RDW 16.6 H (11.6-14.8) % Plt Count 24 L* (150-400) X10^3/uL Neut % (Auto) 57.7 (50-75) % Lymph % (Auto) 32.8 (25-40) % [place] % (Auto) 5.6 (3-14) % Eos % (Auto) 3.1 (2-4) % Baso % (Auto) 0.8 (0-2) % Neut # (Auto) 5400 (1848-9255) /uL Lymph # (Auto) 3100 (0034-6823) /uL [place] # (Auto) 500 (0-900) /uL Eos # (Auto) 300 (0-450) /uL Baso # (Auto) 100 (0-100) /uL Platelet Estimate Decreased on smear Plt Morphology Comment 1+ large platelets RBC Morphology Normal morphology PT 11.3 (10.1-12.7) SECONDS INR 1.0 (0.9-1.3) APTT 27 (26.4-36.2) SECONDS Sodium 135 L (137-145) mmol/L Potassium 4.7 (3.4-5.1) mmol/L Chloride 105 (98-107) mmol/L Carbon Dioxide 22 (22-32) mmol/L BUN 30 H (7-17) mg/dL Creatinine 1.11 H (0.52-1.04) mg/dL Estimated GFR 47.4 L (>60) mL/min BUN/Creatinine Ratio 27.0 H (6-22) Glucose 279 H (80-110) mg/dL Calcium 9.3 (8.4-10.2) mg/dL Total Bilirubin 0.4 (0.2-1.3) mg/dL AST 30 (14-36) IU/L ALT 27 (<35) IU/L Alkaline Phosphatase 59 (38-126) U/L Total Protein 6.6 (6.3-8.2) g/dL Albumin 3.7 (3.5-5.0) g/dL Globulin 2.9 (1.7-4.1) g/dL Albumin/Globulin Ratio 1.3 (1.0-2.8) Blood Type Antibody Screen 05/17/20 Range/Units 18:55 WBC (4.5-11.0) X10^3/uL RBC (4.0-5.2) X10^6/uL Hgb (12.0-16.0) g/dL Hct (36-46) % MCV (80-100) fL MCH (26-34) PG MCHC (30-36) % RDW (11.6-14.8) % Plt Count (150-400) X10^3/uL Neut % (Auto) (50-75) % Lymph % (Auto) (25-40) % [place] % (Auto) (3-14) % Eos % (Auto) (2-4) % Baso % (Auto) (0-2) % Neut # (Auto) (9347-1508) /uL Lymph # (Auto) (2719-1538) /uL [place] # (Auto) (0-900) /uL Eos # (Auto) (0-450) /uL Baso # (Auto) (0-100) /uL Platelet Estimate Plt Morphology Comment RBC Morphology PT (10.1-12.7) SECONDS INR (0.9-1.3) APTT (26.4-36.2) SECONDS Sodium (137-145) mmol/L Potassium (3.4-5.1) mmol/L Chloride (98-107) mmol/L Carbon Dioxide (22-32) mmol/L BUN (7-17) mg/dL Creatinine (0.52-1.04) mg/dL Estimated GFR (>60) mL/min BUN/Creatinine Ratio (6-22) Glucose (80-110) mg/dL Calcium (8.4-10.2) mg/dL Total Bilirubin (0.2-1.3) mg/dL AST (14-36) IU/L ALT (<35) IU/L Alkaline Phosphatase (38-126) U/L Total Protein (6.3-8.2) g/dL Albumin (3.5-5.0) g/dL Globulin (1.7-4.1) g/dL Albumin/Globulin Ratio (1.0-2.8) Blood Type A Positive Antibody Screen Negative MDM Narrative Medical decision making narrative: Platelet count today 24,000. She has no signs of active bleeding. When she was here the end of last month there was concern that potentially she had a intracranial hemorrhage/hematoma. Upon further discussion with the patient she stated that when she arrived at [facility] she had another head CT and then MRI of her head which did not show any bleeding. I did discuss the case with on-call Hematology who recommended no further interventions here in the ER. He stated that he would contact the cemetery keeper here at [facility] to call the patient for an expedient follow-up. I also talked with the provider on-call for the patient's primary provider to inform him of the plan. I discussed this with the patient and her family at bedside. She was given strict return precautions with regard to bleeding. She expressed understanding agreement. Discharge Plan Departure Patient Disposition: Home Clinical Impression: Thrombocytopenia, Acute idiopathic thrombocytopenic purpura Instructions: Immune Thrombocytopenia Purpura Activity Restrictions/Additional Instructions: I discussed the case this evening with Hematology/Oncology. He was going to contact the local cemetery keeper to contact you for a follow-up. Their office is located here at the [facility]. Their phone number is [phone]. I also recommend that tomorrow you contact your primary provider for a follow-up and repeat blood draws in the next couple days. Continue all of your medications as directed. Return to the emergency department for any headaches, vision changes, balance issues, vomiting blood, urinating blood, blood in your stool, abdominal pain or any other new or worsening symptoms. Prescriptions: No Action atorvastatin [Lipitor] 20 MG tablet 20 mg PO DAILY Qty: 0 RF: 0 metformin 1,000 MG tablet 1,000 mg PO BID Qty: 0 RF: 0 glimepiride [Amaryl] 4 MG tablet 4 mg PO DAILY Qty: 0 RF: 0 atenolol 50 MG tablet 50 mg PO DAILY Qty: 0 RF: 0 triamterene-hydrochlorothiazid 37.5 MG/25 MG tablet 1 tab PO DAILY Qty: 0 RF: 0 losartan 100 MG tablet 100 mg PO DAILY Qty: 0 RF: 0 acetaminophen-codeine 30 MG/300 MG tablet 1 tab PO QID Qty: 0 RF: 0 up4 Probiotics Ultra 50 billion cell capsule PO RF: 0 fexofenadine [Allergy Relief (fexofenadine)] 180 mg Tablet 180 mg PO DAILY RF: 0 Referrals: Sindhu Green MD [Primary Care Provider] -
== END 2020-05-17 21:07 | disposition home or self-care (01) ==
PROVIDERS: Emergency Medicine; Emergency Provider Emergency Medicine; PCP Student in an Organized Health Care Education/Training Program
DX: D69.6 Thrombocytopenia, unspecified (principal); D69.3 Immune thrombocytopenic purpura; E11.9 Type 2 diabetes mellitus without complications; E78.5 Hyperlipidemia, unspecified; I10 Essential (primary) hypertension
CPT/HCPCS: 36415; 80053; 85025; 85610; 85730; 86850; 86900; 86901; 99281; 99283

== ENCOUNTER 2020-05-19 18:48 | Emergency (ER) | payer MEDICARE, MEDICAID, SELFPAY ==
[2019-07-03 09:40] VITALS: BMI 41.7
[2020-05-19 18:58] VITALS: BP 128/63; PULSE 107; RESP 24; TEMP 37.1; O2SAT 98; BMI 40.4
[2020-05-19 19:44] LABS: Add Manual Diff / Slide Review NO; Basophils Absolute Auto 100 /uL (0-100); Basophils Percent Auto 0.8 % (0-2); Eosinophils Absolute Auto 300 /uL (0-450); Eosinophils Percent Auto 2.6 % (2-4); Hematocrit 33.1 % (36-46); Hemoglobin 10.5 g/dL (12.0-16.0); Lymphocytes Absolute Auto 3800 /uL (1100-4500); Lymphocytes Percent Auto 28.8 % (25-40); Mean Corpuscular HGB Conc 31.8 % (30-36); Mean Corpuscular Hemoglobin 27.8 PG (26-34); Mean Corpuscular Volume 87.2 fL (80-100); Monocytes Absolute Auto 700 /uL (0-900); Neutrophils Absolute Auto 8300 /uL (1500-7000); Neutrophils Percent Auto 62.8 % (50-75); Prothrombin Time 11.4 SECONDS (10.1-12.7); Red Blood Cell Count 3.79 X10^6/uL (4.0-5.2); Red Cell Distribution Width 16.7 % (11.6-14.8); White Blood Cell Count 13.2 X10^3/uL (4.5-11.0)
[2020-05-19 19:46] LABS: PTT Partial Thromboplastin Tim 25 SECONDS (26.4-36.2)
[2020-05-19 19:47] LABS: BUN Creatinine Ratio 28.3 (6-22); Blood Urea Nitrogen 34 mg/dL (7-17); Calcium 9.2 mg/dL (8.4-10.2); Carbon Dioxide 24 mmol/L (22-32); Chloride 104 mmol/L (98-107); Estimated Glomerular Filt Rate 43.3 mL/min (>60); Glucose 125 mg/dL (80-110); HEMOLYSIS 21 (0-50); Potassium 4.6 mmol/L (3.4-5.1); Sodium 137 mmol/L (137-145)
--- NOTE | 2020-05-19 19:50 | ED.RECABL ---
HPI - Recheck/Abnormal Lab/Rx General Chief Complaint: Recheck/Abnormal Lab/Rx Stated Complaint: states platlette count is 11 Time Seen by Provider: 05/19/20 18:58 Source: patient Mode of arrival: Ambulatory Limitations: no limitations History of Present Illness HPI narrative: Patient is a 80-year-old female who I evaluated just a couple days ago after she was sent to the emergency department secondary to a low platelet count. The end of last month patient was diagnosed with ITP. Was transferred to an outside facility where she received platelet transfusions and IV IG in that started on steroids. Since her last visit to the emergency department she had blood drawn earlier today by her primary doctor's office. She received a call from her primary doctor telling her that her platelet count was 11,000 and was instructed to come to the emergency department for evaluation. Patient states that she feels exactly the same today she did a couple days ago. She has no blood in her stool. No headaches. No vision changes. No shortness of breath. Not coughing up blood. No blood in her urine. She has bruising easily. Related Data Home Medications Medication Instructions Recorded Confirmed atenolol 50 mg PO DAILY #0 11/25/10 07/16/19 atorvastatin [Lipitor] 20 mg PO DAILY #0 11/25/10 07/16/19 glimepiride [Amaryl] 4 mg PO DAILY #0 11/25/10 07/16/19 metformin 1,000 mg PO BID #0 11/25/10 07/16/19 acetaminophen-codeine 1 tab PO QID #0 11/27/16 07/16/19 losartan 100 mg PO DAILY #0 11/27/16 07/16/19 triamterene-hydrochlorothiazid 1 tab PO DAILY #0 11/27/16 07/16/19 fexofenadine [Allergy Relief 180 mg PO DAILY 05/20/19 07/16/19 (fexofenadine)] Lactobacillus cap PO 07/16/19 07/16/19 no.51-Bifidobacterium no.4 50 billion cell capsule Allergies Allergy/AdvReac Type Severity Reaction Status Date / Time Sulfa (Sulfonamide Allergy Severe ITCHING Verified 05/19/20 19:01 Antibiotics) [SULFA (SULFONAMIDE ANTIBIOTICS)] Review of Systems Constitutional Constitutional: Denies headache(s) Eyes Eyes: Denies blurry vision and Denies change in vision ENT Ears, Nose, Mouth, and Throat: Denies headache(s) Cardiovascular Cardiovascular: Denies chest pain and Denies dyspnea Respiratory Respiratory: Denies cough and Denies dyspnea Gastrointestinal Gastrointestinal: Denies abdominal pain, Denies melena, Denies hematochezia, Denies change in bowel habits, Denies coffee ground emesis, Denies nausea and Denies vomiting Genitourinary Genitourinary: Denies hematuria and Denies dysuria Genitourinary: Denies hematuria and Denies dysuria Musculoskeletal Musculoskeletal: Denies arthralgias and Denies myalgias Integumentary/Breasts Skin/Breast: Denies rash Neurologic Neurologic: Denies behavioral changes and Denies headache(s) Psychiatric Psychiatric: Denies behavioral changes Hematologic/Lymphatic Hematologic/Lymphatic: Denies easy bleeding and Reports easy bruising Allergic/Immunologic Allergic/Immunologic: Denies urticaria Patient History Medical History Acute idiopathic thrombocytopenic purpura Chest pain Cystocele with rectocele Diabetes Hyperlipidemia Hypertension Surgical History History of knee replacement Status post ovarian cystectomy Social History Smoking Status: Never smoker Smoking Status: Never smoker alcohol intake frequency: holidays/special occasions only Substance Use Type: does not use Exam Initial Vital Signs Initial Vital Signs: Vital Signs Temperature 98.8 F 05/19/20 18:58 Pulse Rate 107 H 05/19/20 18:58 Respiratory Rate 24 05/19/20 18:58 Blood Pressure 128/63 05/19/20 18:58 Pulse Oximetry 98 05/19/20 18:58 Const General: cooperative and comfortable Limitations: mental status not altered HENMT Head: normal to inspection and normocephalic Resp Effort & Inspection: normal respiratory effort Cardio Rate: tachycardic GI Inspection: non-distended Skin Other: Multiple bruises in various stages of healing Neuro General: patient alert, patient awake and patient oriented x3 Cognition: normal cognition Extrem General: capillary refill normal Psych Appearance: grossly normal and well kempt Course Orders Ordered: ED Orders 05/19/20 19:25 Basic Metabolic Panel Stat Complete Blood Count AUTO DIFF Stat Partial Thromboplastin Time Stat Prothrombin Time INR Stat Type and Screen Stat Vital Signs Vital signs: Vital Signs - 8 hr 05/19/20 18:58 05/19/20 21:36 Temperature 98.8 F Pulse Rate 107 H 99 H Respiratory Rate 24 16 Blood Pressure 128/63 132/80 Pulse Oximetry 98 98 MDM - Recheck/Abnormal Lab/Rx Lab Data Attestation: I reviewed the patient's lab results. Result diagrams: 05/19/20 19:25 05/19/20 19:25 Labs: Lab Results 05/19/20 05/19/20 05/19/20 Range/Units 19:25 19:25 19:25 WBC 13.2 H (4.5-11.0) X10^3/uL RBC 3.79 L (4.0-5.2) X10^6/uL Hgb 10.5 L (12.0-16.0) g/dL Hct 33.1 L (36-46) % MCV 87.2 (80-100) fL MCH 27.8 (26-34) PG MCHC 31.8 (30-36) % RDW 16.7 H (11.6-14.8) % Plt Count 33 L* (150-400) X10^3/uL Neut % (Auto) 62.8 (50-75) % Lymph % (Auto) 28.8 (25-40) % Harrison % (Auto) 5.0 (3-14) % Eos % (Auto) 2.6 (2-4) % Baso % (Auto) 0.8 (0-2) % Neut # (Auto) 8300 H (7887-5070) /uL Lymph # (Auto) 3800 (7443-1533) /uL Harrison # (Auto) 700 (0-900) /uL Eos # (Auto) 300 (0-450) /uL Baso # (Auto) 100 (0-100) /uL RBC Morphology See below Anisocytosis 1+ H PT 11.4 (10.1-12.7) SECONDS INR 1.0 (0.9-1.3) APTT 25 L (26.4-36.2) SECONDS Sodium 137 (137-145) mmol/L Potassium 4.6 (3.4-5.1) mmol/L Chloride 104 (98-107) mmol/L Carbon Dioxide 24 (22-32) mmol/L BUN 34 H (7-17) mg/dL Creatinine 1.20 H (0.52-1.04) mg/dL Estimated GFR 43.3 L (>60) mL/min BUN/Creatinine Ratio 28.3 H (6-22) Glucose 125 H D (80-110) mg/dL Calcium 9.2 (8.4-10.2) mg/dL Blood Type Antibody Screen 05/19/20 Range/Units 19:25 WBC (4.5-11.0) X10^3/uL RBC (4.0-5.2) X10^6/uL Hgb (12.0-16.0) g/dL Hct (36-46) % MCV (80-100) fL MCH (26-34) PG MCHC (30-36) % RDW (11.6-14.8) % Plt Count (150-400) X10^3/uL Neut % (Auto) (50-75) % Lymph % (Auto) (25-40) % Harrison % (Auto) (3-14) % Eos % (Auto) (2-4) % Baso % (Auto) (0-2) % Neut # (Auto) (8037-3946) /uL Lymph # (Auto) (1273-9369) /uL Harrison # (Auto) (0-900) /uL Eos # (Auto) (0-450) /uL Baso # (Auto) (0-100) /uL RBC Morphology Anisocytosis PT (10.1-12.7) SECONDS INR (0.9-1.3) APTT (26.4-36.2) SECONDS Sodium (137-145) mmol/L Potassium (3.4-5.1) mmol/L Chloride (98-107) mmol/L Carbon Dioxide (22-32) mmol/L BUN (7-17) mg/dL Creatinine (0.52-1.04) mg/dL Estimated GFR (>60) mL/min BUN/Creatinine Ratio (6-22) Glucose (80-110) mg/dL Calcium (8.4-10.2) mg/dL Blood Type A Positive Antibody Screen Negative MDM Narrative Medical decision making narrative: Her platelet count today is 33,000 which is actually higher than what it was here a couple days ago. I did discuss the case with Dr. Lorenzo with hematology/oncology the [facility] who was able to look up the patient's last visit at the end of last month. He states that her increase in platelets that she had after her stay there was most likely related to the response from the IVIG infusion that she had. He states that this is a normal response after receiving that substance. He states that the drop in platelets that she has had since then his somewhat expected in her condition. He states that the lower limit as far as treatment to include transfusions given her condition would be 10,000. He states that if she had indication of bleeding it would potentially be higher than that however she has no indication of bleeding today. The difference in the level platelets that she is getting from her primary doctor's office and the level that is being obtained here in the emergency department could be secondary to multiple reasons. Her primary doctor's office uses a lab that is outside of this facility. Her blood is drawn in the office and then is sent to an outside facility. The blood that is drawn here in the emergency department is run within a very short period of time. I suspect that the low platelets that is being resulted from her primary doctor's office was most likely secondary to the fact that it is being transported and run several hours after it is drawn. I also is because of the medium that the blood is being transported in and platelet aggregation. Dr graves recommended that any future blood draws be drawn and Alon in his short time as possible. Recommended that home future comparisons of platelet counts be from the same lab. He also recommended that if the blood needed to be transported that it be a transported in a citrate tube. I did discuss this with the patient and her daughter who was at bedside. I also discussed the case with the patient's primary doctor. She already has a follow-up scheduled tomorrow morning with her primary doctor. There is no indication for transfusions, no indication for IVIG infusions, no indication for admission to the hospital. Patient was given strict return precautions and follow-up instructions. Expressed understanding and agreement. Discharge Plan Departure Patient Disposition: Home Clinical Impression: Acute idiopathic thrombocytopenic purpura, Thrombocytopenia Instructions: Immune Thrombocytopenia Purpura Activity Restrictions/Additional Instructions: Keep your appointment with your primary doctor tomorrow. Continue to take all of your medications as directed. Return to the emergency department for any new or worsening symptoms Prescriptions: No Action atorvastatin [Lipitor] 20 MG tablet 20 mg PO DAILY Qty: 0 RF: 0 metformin 1,000 MG tablet 1,000 mg PO BID Qty: 0 RF: 0 glimepiride [Amaryl] 4 MG tablet 4 mg PO DAILY Qty: 0 RF: 0 atenolol 50 MG tablet 50 mg PO DAILY Qty: 0 RF: 0 triamterene-hydrochlorothiazid 37.5 MG/25 MG tablet 1 tab PO DAILY Qty: 0 RF: 0 losartan 100 MG tablet 100 mg PO DAILY Qty: 0 RF: 0 acetaminophen-codeine 30 MG/300 MG tablet 1 tab PO QID Qty: 0 RF: 0 up4 Probiotics Ultra 50 billion cell capsule PO RF: 0 fexofenadine [Allergy Relief (fexofenadine)] 180 mg Tablet 180 mg PO DAILY RF: 0 Referrals: Sindhu Green MD [Primary Care Provider] -
[2020-05-19 19:57] LABS: Anisocytosis 1+; Platelet Count 33 X10^3/uL (150-400)
[2020-05-19 21:36] VITALS: BP 132/80; PULSE 99; RESP 16; O2SAT 98
== END 2020-05-19 21:38 | disposition home or self-care (01) ==
PROVIDERS: Emergency Provider Emergency Medicine; PCP Student in an Organized Health Care Education/Training Program
DX: D69.3 Immune thrombocytopenic purpura (principal); D69.6 Thrombocytopenia, unspecified; R00.0 Tachycardia, unspecified; I10 Essential (primary) hypertension; E78.5 Hyperlipidemia, unspecified; E11.9 Type 2 diabetes mellitus without complications
CPT/HCPCS: 36415; 80048; 85025; 85610; 85730; 86850; 86900; 86901; 99281; 99283

== ENCOUNTER → 2020-06-04 15:17 | Outpatient (CLI) | payer MEDICARE, MEDICAID, SELFPAY ==
[2019-07-03 09:40] VITALS: BMI 41.7
[2020-06-04 16:32] LABS: Appearance Urine UA CLEAR; Bilirubin Urine UA NEGATIVE (NEGATIVE); Color Urine UA YELLOW; Glucose Urine UA 1+ g/dL (Negative); Ketones Urine UA NEGATIVE (NEGATIVE); Leukocyte Esterase Urine UA NEGATIVE (NEGATIVE); Nitrite Urine UA NEGATIVE (Negative); Occult Blood Urine UA NEGATIVE (Negative); Protein Urine UA NEGATIVE (Negative); Specific Gravity Urine UA 1.015 (1.000-1.035); Urobilinogen Urine UA 0.2 E.U./dL (0.2)
[2020-06-04 16:45] LABS: Bacteria Urine Few (2-10); Culture Indicated Urine Cult Not Indicated; RBC Urine 0-1/HPF (0-5/HPF); Squamous Epithelial Cell Urine 5-10 /HPF (0-5/HPF); Transitional Epi Cells Urine 1-5/HPF (0-5/HPF); WBC Urine 0-1/HPF (0-5/HPF)
== END ==
PROVIDERS: PCP Student in an Organized Health Care Education/Training Program; Referring Provider Obstetrics & Gynecology; Visit Provider Obstetrics & Gynecology
DX: N39.0 Urinary tract infection, site not specified (principal); N81.10 Cystocele, unspecified; N81.6 Rectocele; R33.9 Retention of urine, unspecified
CPT/HCPCS: 81001

== ENCOUNTER → 2021-07-04 17:19 | Outpatient (CLI) | payer OTHER, MEDICAID, SELFPAY ==
[2019-07-03 09:40] VITALS: BMI 41.7
== END ==
PROVIDERS: PCP Student in an Organized Health Care Education/Training Program; Visit Provider Obstetrics & Gynecology
DX: R33.9 Retention of urine, unspecified (principal)
CPT/HCPCS: 87086

== ENCOUNTER 2021-09-09 12:37 | Emergency (ER) | payer OTHER, MEDICAID, SELFPAY ==
[2019-07-03 09:40] VITALS: BMI 41.7
[2021-09-09 13:13] VITALS: BP 126/73; PULSE 108; RESP 18; TEMP 36.2; O2SAT 98; BMI 37.9
[2021-09-09 13:53] LABS: COVID19 -Nasal RAPID POSITIVE (Negative)
--- NOTE | 2021-09-09 13:53 | ED_ITS ---
HPI - Abdominal Pain General Chief Complaint: Abdominal Pain Stated Complaint: poss. bladder infec; abd pain Time Seen by Provider: 09/09/21 13:53 Source: patient and family Mode of arrival: Ambulatory History of Present Illness HPI narrative: Presents with a chief complaint of severe lower abdominal pain and difficulty urinating. She has had known bladder prolapse and has had difficulty producing urine on occasion in the past and at 1 point had straight cath full off about 500 cc. She has severe pain, worse with motion and improves with rest. She denies any fever or chills. She has no chest pain or shortness of breath. She denies nausea or vomiting. She had been battling which she thought was bronchitis the past few weeks with runny nose, occasional sore throat and dry hacking cough that is largely improved. She did not get any COVID swab strain at time and is not vaccinated. Related Data Home Medications Medication Instructions Recorded Confirmed atorvastatin 20 mg tablet (Lipitor) 20 mg PO DAILY #0 11/25/10 07/04/21 glimepiride 4 mg tablet (Amaryl) 8 mg PO DAILY #0 11/25/10 07/04/21 metformin 1,000 mg tablet 1,000 mg PO BID #0 11/25/10 07/04/21 acetaminophen 300 mg-codeine 30 mg 1 tab PO QID #0 11/27/16 07/04/21 tablet losartan 100 mg tablet 50 mg PO DAILY #0 11/27/16 07/04/21 triamterene 37.5 1 tab PO DAILY #0 11/27/16 07/04/21 mg-hydrochlorothiazide 25 mg tablet fexofenadine 180 mg tablet 180 mg PO DAILY 05/20/19 07/04/21 (Allergy Relief (fexofenadine)) Lactobacillus 1 cap PO DAILY 07/16/19 07/04/21 no.51-Bifidobacterium no.4 50 billion cell capsule (up4 Probiotics Ultra) ferrous sulfate 325 mg (65 mg 325 mg PO DAILY 05/20/20 07/04/21 iron) tablet empagliflozin 10 mg tablet 10 mg PO DAILY 10/18/20 07/04/21 (Jardiance) Cbd Oil 1 tbsp BID 04/21/21 07/04/21 diclofenac sodium 75 mg 75 mg PO BID 04/21/21 07/04/21 tablet,delayed release Previous Rx's Medication Instructions Recorded estradiol (Estrace) 0.5 g VAGINAL DAILY #42.5 g 06/07/20 catheter 14 Fr (Self-Catheter, #90 ea 07/12/21 Female) cephalexin 500 mg capsule 500 mg PO BID #10 cap 09/09/21 Allergies Allergy/AdvReac Type Severity Reaction Status Date / Time Sulfa (Sulfonamide Allergy Severe ITCHING Verified 07/04/21 14:22 Antibiotics) [SULFA (SULFONAMIDE ANTIBIOTICS)] Review of Systems Review of Systems Narrative: GENERAL: Denies chills, fatigue, malaise, fever, sweats. HEENT: See HPI RESPIRATORY: See HPI CARDIOVASCULAR: Denies chest pain, palpitations, orthopnea, edema, GASTROINTESTINAL: See HP : Denies dysuria, frequency, incontinence, hematuria, urinary retention. MUSCULOSKELETAL: denies weakness, joint pain, or bony pain SKIN: Denies rash, skin lesions, or other NEUROLOGIC: Denies weakness, headache, numbness, change in speech, confusion, seizures, incoordination. PSYCHIATRIC: No concerning psychosocial issues. 12 point review of systems is negative except for those stated above Patient History Medical History Acute idiopathic thrombocytopenic purpura Chest pain Cystocele with rectocele Diabetes Hyperlipidemia Hypertension Surgical History History of knee replacement Status post ovarian cystectomy Social History Smoking Status: Never smoker Smoking Status: Never smoker alcohol intake frequency: holidays/special occasions only Substance Use Type: does not use Exam Narrative Exam Narrative: GENERAL: [81] year old patient appears stated age. Well-developed patient, in mild distress. HEAD: Atraumatic. Normocephalic. EYES: Pupils equal round and reactive. Extraocular motions intact. No scleral icterus. No injection or drainage. ENT: Nose without bleeding, purulent drainage. Throat without erythema, tonsillar hypertrophy or exudate. Airway patent. NECK: Trachea midline. Non tender CARDIOVASCULAR: Regular rate and rhythm without murmurs, gallops, or rubs. RESPIRATORY: Clear to auscultation. Breath sounds equal bilaterally. No wheezes, rales, or rhonchi. GASTROINTESTINAL: Abdomen soft, generalized tender, nondistended. EXTREMITIES: No edema or joint tenderness. BACK: Nontender without deformity or crepitance. No flank tenderness. NEURO: AOx3. SKIN: No rash or erythema of visible areas Initial Vital Signs Initial Vital Signs: Vital Signs Temperature 97.1 F L 09/09/21 13:13 Pulse Rate 108 H 09/09/21 13:13 Respiratory Rate 18 09/09/21 13:13 Blood Pressure 126/73 09/09/21 13:13 Pulse Oximetry 98 09/09/21 13:13 Course Orders Ordered: Discontinued Medications Sodium Chloride (Normal Saline 0.9%) 500 mls @ 1,000 mls/hr IV BOLUS ONE Stop: 09/09/21 14:32 Last Infusion: 09/09/21 15:37 Dose: 0 mls/hr Documented by: Admin: 09/09/21 14:22 Dose: 1,000 mls/hr Documented by: IDALIA Vital Signs Vital signs: Vital Signs - 8 hr 09/09/21 13:13 Temperature 97.1 F L Pulse Rate 108 H Respiratory Rate 18 Blood Pressure 126/73 Pulse Oximetry 98 MDM - Abdominal Pain Lab Data Result diagrams: 09/09/21 13:43 09/09/21 13:43 Labs: Lab Results 09/09/21 09/09/21 09/09/21 Range/Units 13:28 13:43 13:43 WBC 6.4 (4.5-11.0) X10^3/uL RBC 4.70 (4.0-5.2) X10^6/uL Hgb 13.8 (12.0-16.0) g/dL Hct 41.5 (36-46) % MCV 88.3 (80-100) fL MCH 29.3 (26-34) PG MCHC 33.2 (30-36) % RDW 15.2 H (11.6-14.8) % Plt Count 169 (150-400) X10^3/uL Neut % (Auto) 78.4 H (50-75) % Lymph % (Auto) 15.1 L (25-40) % [place] % (Auto) 4.9 (3-14) % Eos % (Auto) 1.2 L (2-4) % Baso % (Auto) 0.4 (0-2) % Neut # (Auto) 5000 (1108-2974) /uL Lymph # (Auto) 1000 L (6635-0752) /uL [place] # (Auto) 300 (0-900) /uL Eos # (Auto) 100 (0-450) /uL Baso # (Auto) 0 (0-100) /uL Sodium 132 L (137-145) mmol/L Potassium 5.1 (3.4-5.1) mmol/L Chloride 98 (98-107) mmol/L Carbon Dioxide 22 (22-32) mmol/L BUN 32 H (7-17) mg/dL Creatinine 1.13 H (0.52-1.04) mg/dL Estimated GFR 49 L (>60) mL/min BUN/Creatinine Ratio 28.3 H (6-22) Glucose 336 H (80-110) mg/dL Calcium 9.2 (8.4-10.2) mg/dL Total Bilirubin 0.6 (0.2-1.3) mg/dL AST 28 (14-36) IU/L ALT 27 (<35) IU/L Alkaline Phosphatase 86 (38-126) U/L Total Protein 8.0 (6.3-8.2) g/dL Albumin 4.5 (3.5-5.0) g/dL Globulin 3.5 (1.7-4.1) g/dL Albumin/Globulin Ratio 1.3 (1.0-2.8) Lipase 350 H (23-300) U/L Urine Color Urine Appearance Urine pH (4.5-8.0) Ur Specific [place] (1.000-1.035) Urine Protein (Negative) Urine Glucose (UA) (Negative) g/dL Urine Ketones (NEGATIVE) Urine Occult Blood (Negative) Urine Nitrate (Negative) Urine Bilirubin (NEGATIVE) Urine Urobilinogen (0.2) E.U./dL Ur Leukocyte Esterase (NEGATIVE) Urine RBC (0-5/HPF) Urine WBC (0-5/HPF) Ur Squamous Epith Cells (0-5/HPF) Urine Bacteria (None) Ur Culture Indicated? SARS-CoV-2 (PCR) Positive H (Negative) 09/09/21 Range/Units 14:07 WBC (4.5-11.0) X10^3/uL RBC (4.0-5.2) X10^6/uL Hgb (12.0-16.0) g/dL Hct (36-46) % MCV (80-100) fL MCH (26-34) PG MCHC (30-36) % RDW (11.6-14.8) % Plt Count (150-400) X10^3/uL Neut % (Auto) (50-75) % Lymph % (Auto) (25-40) % [place] % (Auto) (3-14) % Eos % (Auto) (2-4) % Baso % (Auto) (0-2) % Neut # (Auto) (7006-2048) /uL Lymph # (Auto) (8101-5968) /uL [place] # (Auto) (0-900) /uL Eos # (Auto) (0-450) /uL Baso # (Auto) (0-100) /uL Sodium (137-145) mmol/L Potassium (3.4-5.1) mmol/L Chloride (98-107) mmol/L Carbon Dioxide (22-32) mmol/L BUN (7-17) mg/dL Creatinine (0.52-1.04) mg/dL Estimated GFR (>60) mL/min BUN/Creatinine Ratio (6-22) Glucose (80-110) mg/dL Calcium (8.4-10.2) mg/dL Total Bilirubin (0.2-1.3) mg/dL AST (14-36) IU/L ALT (<35) IU/L Alkaline Phosphatase (38-126) U/L Total Protein (6.3-8.2) g/dL Albumin (3.5-5.0) g/dL Globulin (1.7-4.1) g/dL Albumin/Globulin Ratio (1.0-2.8) Lipase (23-300) U/L Urine Color Yellow Urine Appearance Cloudy Urine pH 6.5 (4.5-8.0) Ur Specific [place] 1.010 (1.000-1.035) Urine Protein Trace H (Negative) Urine Glucose (UA) 3+ H (Negative) g/dL Urine Ketones Negative (NEGATIVE) Urine Occult Blood 1+ H (Negative) Urine Nitrate Positive H (Negative) Urine Bilirubin Negative (NEGATIVE) Urine Urobilinogen 0.2 (0.2) E.U./dL Ur Leukocyte Esterase 2+ H (NEGATIVE) Urine RBC None seen (0-5/HPF) Urine WBC 10-30/hpf H (0-5/HPF) Ur Squamous Epith Cells 1-5 /hpf (0-5/HPF) Urine Bacteria None seen (None) Ur Culture Indicated? Specimen cultured SARS-CoV-2 (PCR) (Negative) Imaging Data CT scan - abdomen/pelvis: Radiologist's Impression: Launch?Image [address] [address] [address] Scan Report Signed Patient: Madisyn Covarrubias MR#: [id number] : 1940 Acct:[id number] Age/Sex: 81 / F Date of Service: 09/09/21 Loc: ED Accession Number: [id number] ?? Procedure: CT kidney ureter bladder (KUB) Ordering Provider: Go Calderon D.O. PROCEDURE:? CT KIDNEY URETER BLADDER (KUB) ? INDICATIONS:? severe lower pelvic pain ? TECHNIQUE:? Axial sections were acquired from the lung bases to the pubic symphysis.? Coronal and sagittal reformats were performed.? For radiation dose reduction, the following was used: ?automated exposure control, adjustment of mA and/or kV according to patient size.? ? COMPARISON:? [facility], CT, CT ABDOMEN PELVIS W CON, 06/18/2019, 12:07. ? FINDINGS:? Image quality:? Excellent.? ? Lung bases:? Unremarkable.? ? Heart:? No significant findings. ? URINARY: Right Kidney:? A nonobstructing 2 mm calculus is seen at the inferior pole of the right kidney.? No hydronephrosis. Right Ureter:? No hydroureter.? ? Left Kidney:? No stones or hydronephrosis. Left Ureter:? No hydroureter.? ? Bladder:? Normal wall thickness. No stones. ? ? ? ABDOMEN: Liver:? The liver is diffusely hypoattenuating, consistent with fatty infiltration.? There is mild spurring of the gallbladder fossa.? ? Gallbladder:? Multiple large peripherally calcified gallstones are seen in the gallbladder is well as probable smaller calculi in the fundus.? No pericholecystic inflammatory changes. Biliary ducts:? Unremarkable.? ? Pancreas:? Unremarkable.? ? Spleen:? Unremarkable.? ? Adrenal Glands:? Unremarkable.? ? ? Stomach and Bowel:? Multiple diverticula are seen in the colon without signs of acute diverticulitis.? Small hiatal hernia.? Small bowel loops are unremarkable. Peritoneum:? No abnormal intraperitoneal fluid.? No free air.? ? Ventral Wall:? A few small fat containing periumbilical hernias are seen. Abdominal Nodes:? No enlarged retroperitoneal or mesenteric lymph nodes.? Vessels:? Aorta and inferior vena cava are normal in size.? ? PELVIS: Pelvic Organs:? Status post hysterectomy.? There is inferior positioning of the lower bladder and rectum that is suspicious for cystocele and pelvic floor descent. Pelvic Nodes: Unremarkable. Miscellaneous:? Suspected bilateral fat containing femoral hernias, slightly larger on the right. ? Bones:? Multilevel degenerative changes are seen in the spine as well as in the sacroiliac joints, pubic symphysis, and to a lesser extent the hips. ? IMPRESSION:? 1. No acute abnormality identified in the abdomen or pelvis. 2. Nonobstructing 2 mm calculus at the inferior pole of the right kidney.? No ureteral calculus or hydronephrosis.? 3. Cholelithiasis without signs of acute cholecystitis.? Ultrasound could be obtained for further evaluation if indicated clinically. 4. 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 5. Bilateral fat containing femoral hernias.? Small fat containing periumbilical hernias are also present. 6. Colonic diverticulosis.? Small hiatal hernia. 7. Diffuse hepatic steatosis. ? ? Dictated by: Harlan Rodriguez M.D. on 09/09/2021 at 16:22 ? ? Approved by: Harlan Rodriguez M.D. on 09/09/2021 at 16:38 ? Discharge Plan Departure Patient Disposition: Home Clinical Impression: Acute UTI, Bladder cystocele, COVID-19 Instructions: DI for Cystocele and Rectocele Repair, DI for Urinary Tract Infection (UTI), DI for COVID-19 (Suspected or Confirmed ) Activity Restrictions/Additional Instructions: *You have been diagnosed with [UTI and bladder prolapse along with COVID-19 *What to do: *Please continue to take your regular medications as directed. [x ] New medication prescriptions sent to your pharmacy: [[facility] ] [ ] New medication written as a paper prescription [ ] No new medications given *Please follow up with your primary care provider in 2-3 days, call for an appointment. Let them know you were seen in the Emergency Department and that we ask that you be seen in follow up. We will electronically transmit a record of today's note if your PCP is in our system *If you do not have a primary care provider please contact the [facility] Resource line at [phone]. They will ask some questions about your medical history and help get you set up with a doctor in the community. *Return to Emergency Department if you should have any new, worsening or concerning symptoms, such as [fever greater than 101 F, shaking chills, worsening pain, persistent vomiting or other bothersome symptoms] *You have been diagnosed with [ COVID-19] *What to do: * per recommendations from the CDC and the [facility] Department of Health * stay home except to get medical care. Restrict activities outside your home, except for getting medical care. Do not go to work, school, or public areas. Avoid using public transportation, ride sharing, or taxis. * separate yourself from other people in your home. * call ahead before visiting your doctor * Wear a facemask * Cover your coughs and sneezes * Clean your hands often * Avoid sharing household items * Clean all high-touch services every day * Monitor your symptoms and seek prompt medical attention if your illness is worsening, particularly with difficulty in breathing. You may discontinue your isolation when: 1. You have been fever-free for at least 24 hours without the use of fever reducing medication, AND 2. Your symptoms are getting better, AND 3. At least 5 days have passed since symptoms first appeared 4. If you have fever, continue to stay home until fever resolves Individuals with laboratory confirmed COVID-19 who have not had any symptoms may discontinue home isolation when at least 5 days have passed since the date of their first COVID-19 diagnostic test and have had no subsequent illness You should notifiy any friends and family that have been in close contact *If up to date on COVID Vaccines, then they do not need to quarantine unless symptoms develop. Get tested on day 5 (or sooner if symptoms develop). Take precautions and watch for symptoms until day 10 *If NOT up to date on COVID Vaccines, then CDC recommends quarantine for at least 5 full days. Wear a well fitted mask at home if you must be around others. If they develop symptoms they should get tested. If they remain asymptomatic they should get tested on day 5. They should take precautions and monitor for symptoms until day 10. Prescriptions: New cephalexin 500 mg capsule 500 mg PO BID Qty: 10 0RF No Action atorvastatin [Lipitor] 20 MG tablet 20 mg PO DAILY Qty: 0 0RF metformin 1,000 MG tablet 1,000 mg PO BID Qty: 0 0RF glimepiride [Amaryl] 4 MG tablet 8 mg PO DAILY Qty: 0 0RF triamterene-hydrochlorothiazid 37.5 MG/25 MG tablet 1 tab PO DAILY Qty: 0 0RF losartan 100 MG tablet 50 mg PO DAILY Qty: 0 0RF acetaminophen-codeine 30 MG/300 MG tablet 1 tab PO QID Qty: 0 0RF (DME) Self-Catheter, Female 14 Fr misc See Rx Instructions .Route Qty: 90 11RF Rx Instructions: Use as directed at night to self-cath as needed, every couple of hours estradiol [Estrace] 0.01 % (0.1 mg/gram) cream 0.5 g vaginal DAILY Qty: 42.5 0RF Rx Instructions: 0.5gm in the vagina every day for 2 wks and then twice a week up4 Probiotics Ultra 50 billion cell capsule 1 cap PO DAILY 0RF fexofenadine [Allergy Relief (fexofenadine)] 180 mg Tablet 180 mg PO DAILY 0RF ferrous sulfate 325 mg (65 mg iron) Tablet 325 mg PO DAILY 0RF Jardiance 10 mg Tablet 10 mg PO DAILY 0RF diclofenac sodium [Voltaren] 75 mg Tablet,Delayed Release (Dr/Ec) 75 mg PO BID 0RF Cbd Oil 1 tbsp BID 0RF Referrals: Sindhu Green MD [Primary Care Provider] -
[2021-09-09 13:58] LABS: Add Manual Diff / Slide Review NO; Basophils Absolute Auto 0 /uL (0-100); Basophils Percent Auto 0.4 % (0-2); Eosinophils Absolute Auto 100 /uL (0-450); Eosinophils Percent Auto 1.2 % (2-4); Hematocrit 41.5 % (36-46); Hemoglobin 13.8 g/dL (12.0-16.0); Lymphocytes Absolute Auto 1000 /uL (1100-4500); Lymphocytes Percent Auto 15.1 % (25-40); Mean Corpuscular HGB Conc 33.2 % (30-36); Mean Corpuscular Hemoglobin 29.3 PG (26-34); Mean Corpuscular Volume 88.3 fL (80-100); Monocytes Absolute Auto 300 /uL (0-900); Monocytes Percent Auto 4.9 % (3-14); Neutrophils Absolute Auto 5000 /uL (1500-7000); Neutrophils Percent Auto 78.4 % (50-75); Platelet Count 169 X10^3/uL (150-400); Red Cell Distribution Width 15.2 % (11.6-14.8); White Blood Cell Count 6.4 X10^3/uL (4.5-11.0)
[2021-09-09 14:07] LABS: Alanine Aminotransferase 27 IU/L (<35); Albumin 4.5 g/dL (3.5-5.0); Albumin Globulin Ratio 1.3 (1.0-2.8); Alkaline Phosphatase 86 U/L (38-126); Aspartate Aminotransferase 28 IU/L (14-36); BUN Creatinine Ratio 28.3 (6-22); Bilirubin Total 0.6 mg/dL (0.2-1.3); Blood Urea Nitrogen 32 mg/dL (7-17); Calcium 9.2 mg/dL (8.4-10.2); Carbon Dioxide 22 mmol/L (22-32); Chloride 98 mmol/L (98-107); Estimated Glomerular Filt Rate 49 mL/min (>60); Globulin 3.5 g/dL (1.7-4.1); Glucose 336 mg/dL (80-110); HEMOLYSIS 49 (0-50); Lipase 350 U/L (23-300); Potassium 5.1 mmol/L (3.4-5.1); Sodium 132 mmol/L (137-145)
[2021-09-09 14:12] LABS: Appearance Urine UA CLOUDY; Bilirubin Urine UA NEGATIVE (NEGATIVE); Color Urine UA YELLOW; Glucose Urine UA 3+ g/dL (Negative); Ketones Urine UA NEGATIVE (NEGATIVE); Leukocyte Esterase Urine UA 2+ (NEGATIVE); Nitrite Urine UA POSITIVE (Negative); Occult Blood Urine UA 1+ (Negative); Protein Urine UA TRACE (Negative); Urobilinogen Urine UA 0.2 E.U./dL (0.2)
[2021-09-09] MEDS: SODIUM CHLORIDE 0.9% 500 ML 1000 ML IV (14:22)
[2021-09-09 14:29] LABS: pH Urine UA 6.5 (4.5-8.0)
--- NOTE | 2021-09-09 14:32 | DI.CT.S_ITS ---
PROCEDURE: CT KIDNEY URETER BLADDER (KUB) INDICATIONS: severe lower pelvic pain TECHNIQUE: Axial sections were acquired from the lung bases to the pubic symphysis. Coronal and sagittal reformats were performed. For radiation dose reduction, the following was used: automated exposure control, adjustment of mA and/or kV according to patient size. COMPARISON: [facility], CT, CT ABDOMEN PELVIS W CON, 06/18/2019, 12:07. FINDINGS: Image quality: Excellent. Lung bases: Unremarkable. Heart: No significant findings. URINARY: Right Kidney: A nonobstructing 2 mm calculus is seen at the inferior pole of the right kidney. No hydronephrosis. Right Ureter: No hydroureter. Left Kidney: No stones or hydronephrosis. Left Ureter: No hydroureter. Bladder: Normal wall thickness. No stones. ABDOMEN: Liver: The liver is diffusely hypoattenuating, consistent with fatty infiltration. There is mild spurring of the gallbladder fossa. Gallbladder: Multiple large peripherally calcified gallstones are seen in the gallbladder is well as probable smaller calculi in the fundus. No pericholecystic inflammatory changes. Biliary ducts: Unremarkable. Pancreas: Unremarkable. Spleen: Unremarkable. Adrenal Glands: Unremarkable. Stomach and Bowel: Multiple diverticula are seen in the colon without signs of acute diverticulitis. Small hiatal hernia. Small bowel loops are unremarkable. Peritoneum: No abnormal intraperitoneal fluid. No free air. Ventral Wall: A few small fat containing periumbilical hernias are seen. Abdominal Nodes: No enlarged retroperitoneal or mesenteric lymph nodes. Vessels: Aorta and inferior vena cava are normal in size. PELVIS: Pelvic Organs: Status post hysterectomy. There is inferior positioning of the lower bladder and rectum that is suspicious for cystocele and pelvic floor descent. Pelvic Nodes: Unremarkable. Miscellaneous: Suspected bilateral fat containing femoral hernias, slightly larger on the right. Bones: Multilevel degenerative changes are seen in the spine as well as in the sacroiliac joints, pubic symphysis, and to a lesser extent the hips. IMPRESSION: 1. No acute abnormality identified in the abdomen or pelvis. 2. Nonobstructing 2 mm calculus at the inferior pole of the right kidney. No ureteral calculus or hydronephrosis. 3. Cholelithiasis without signs of acute cholecystitis. Ultrasound could be obtained for further evaluation if indicated clinically. 4. 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 5. Bilateral fat containing femoral hernias. Small fat containing periumbilical hernias are also present. 6. Colonic diverticulosis. Small hiatal hernia. 7. Diffuse hepatic steatosis. Dictated by: Harlan Rodriguez M.D. on 09/09/2021 at 16:22 Approved by: Harlan Rodriguez M.D. on 09/09/2021 at 16:38
[2021-09-09 14:45] LABS: Bacteria Urine None Seen; Culture Indicated Urine Specimen Cultured; RBC Urine None Seen (0-5/HPF); Squamous Epithelial Cell Urine 1-5 /HPF (0-5/HPF); WBC Urine 10-30/HPF (0-5/HPF)
== END 2021-09-09 17:16 | disposition home or self-care (01) ==
PROVIDERS: Emergency Provider Emergency Medicine; PCP Student in an Organized Health Care Education/Training Program
DX: N39.0 Urinary tract infection, site not specified (principal); N81.10 Cystocele, unspecified; U07.1 COVID-19
CPT/HCPCS: 36415; 74176; 80053; 81001; 83690; 85025; 87077; 87086; 87147; 87186; 87635; 99284; C9803

== ENCOUNTER 2021-09-16 09:38 | Emergency (ER) | payer OTHER, MEDICAID, SELFPAY ==
[2019-07-03 09:40] VITALS: BMI 41.7
[2021-09-16 10:02] VITALS: BP 123/61; PULSE 110; RESP 18; TEMP 36.4; O2SAT 96; BMI 38.2
[2021-09-16 10:26] LABS: Add Manual Diff / Slide Review NO; Basophils Absolute Auto 100 /uL (0-100); Basophils Percent Auto 0.9 % (0-2); Eosinophils Absolute Auto 100 /uL (0-450); Eosinophils Percent Auto 1.1 % (2-4); Hematocrit 43.5 % (36-46); Hemoglobin 14.3 g/dL (12.0-16.0); Lymphocytes Absolute Auto 2100 /uL (1100-4500); Lymphocytes Percent Auto 19.7 % (25-40); Mean Corpuscular Hemoglobin 29.1 PG (26-34); Mean Corpuscular Volume 88.4 fL (80-100); Monocytes Absolute Auto 500 /uL (0-900); Monocytes Percent Auto 4.7 % (3-14); Neutrophils Absolute Auto 8000 /uL (1500-7000); Neutrophils Percent Auto 73.6 % (50-75); Platelet Count 262 X10^3/uL (150-400); Red Blood Cell Count 4.92 X10^6/uL (4.0-5.2); White Blood Cell Count 10.8 X10^3/uL (4.5-11.0)
--- NOTE | 2021-09-16 10:29 | DI.US.S_ITS ---
PROCEDURE: US ABDOMEN LIMITED INDICATIONS: RUQ EVALUATION OF GALLBLADDER TECHNIQUE: Real-time focused scanning was performed of the abdomen, with image documentation. COMPARISON: [facility], CT, CT KIDNEY URETER BLADDER (KUB), 09/09/2021, 15:36. [facility], US, US ABDOMEN LIMITED, 06/26/2019, 13:02. FINDINGS: This study is limited by body habitus. The liver demonstrates normal size. The liver demonstrates generalized moderately increased echogenicity. This decreases ultrasound sensitivity for detection of hepatic masses. The gallbladder is enlarged, with 2 prominent stones within it. The gallbladder wall is not thickened, measuring 3 mm or less. No specific pericholecystic fluid is seen. The sonographic Olmos sign is negative. The common bile duct is enlarged at 9 mm. The pancreas is not well seen. IMPRESSION: Enlarged gallbladder with 2 large stones seen within it. No additional sonographic signs of cholecystitis are seen. Mild biliary dilatation, measuring 9 mm. The liver demonstrates increased echogenicity. This finding is nonspecific, yet it is most commonly attributed to fatty infiltration. Dictated by: Huey Bond M.D. on 09/16/2021 at 10:52 Approved by: Huey Bond M.D. on 09/16/2021 at 10:53
--- NOTE | 2021-09-16 10:29 | ED_ITS ---
HPI - General Adult General Chief complaint: Abdominal Pain Stated complaint: covid+ stomach pains *7 days weak Time Seen by Provider: 09/16/21 09:51 Source: patient Mode of arrival: Ambulatory History of Present Illness HPI narrative: Patient is an 81-year-old female. She is here for evaluation of worsening right-sided abdominal discomfort. She states that she feels like her stomach is a no easy but has not vomited. No fevers. No diarrhea. No urinary symptoms. She was here in the emergency department approximately 1 week ago where she was diagnosed with COVID. That time she was coughing. Those symptoms have all resolved. She has had an abdominal surgery in the past. She has known gallstones and a known hernia but was told that she was not going to have surgery unless she develops symptoms from these. She does not know anything that makes her symptoms better or worse it has been a constant pain for the past 7 days. Related Data Home Medications Medication Instructions Recorded Confirmed atorvastatin 20 mg tablet (Lipitor) 20 mg PO DAILY #0 11/25/10 07/04/21 glimepiride 4 mg tablet (Amaryl) 8 mg PO DAILY #0 11/25/10 07/04/21 metformin 1,000 mg tablet 1,000 mg PO BID #0 11/25/10 07/04/21 acetaminophen 300 mg-codeine 30 mg 1 tab PO QID #0 11/27/16 07/04/21 tablet losartan 100 mg tablet 50 mg PO DAILY #0 11/27/16 07/04/21 triamterene 37.5 1 tab PO DAILY #0 11/27/16 07/04/21 mg-hydrochlorothiazide 25 mg tablet fexofenadine 180 mg tablet 180 mg PO DAILY 05/20/19 07/04/21 (Allergy Relief (fexofenadine)) Lactobacillus 1 cap PO DAILY 07/16/19 07/04/21 no.51-Bifidobacterium no.4 50 billion cell capsule (up4 Probiotics Ultra) ferrous sulfate 325 mg (65 mg 325 mg PO DAILY 05/20/20 07/04/21 iron) tablet empagliflozin 10 mg tablet 10 mg PO DAILY 10/18/20 07/04/21 (Jardiance) Cbd Oil 1 tbsp BID 04/21/21 07/04/21 diclofenac sodium 75 mg 75 mg PO BID 04/21/21 07/04/21 tablet,delayed release Previous Rx's Medication Instructions Recorded estradiol (Estrace) 0.5 g VAGINAL DAILY #42.5 g 06/07/20 catheter 14 Fr (Self-Catheter, #90 ea 07/12/21 Female) cephalexin 500 mg capsule 500 mg PO BID #10 cap 09/09/21 Allergies Allergy/AdvReac Type Severity Reaction Status Date / Time Sulfa (Sulfonamide Allergy Severe ITCHING Verified 09/16/21 10:02 Antibiotics) [SULFA (SULFONAMIDE ANTIBIOTICS)] Review of Systems Constitutional Constitutional: Denies fever(s) Cardiovascular Cardiovascular: Denies chest pain and Denies dyspnea Respiratory Respiratory: Denies dyspnea Gastrointestinal Gastrointestinal: Reports as per HPI and Reports abdominal pain Genitourinary Genitourinary: Denies dysuria Musculoskeletal Musculoskeletal: Reports system reviewed and no additional complaints, except as documented Integumentary/Breasts Skin/Breast: Reports system reviewed and no additional complaints, except as documented Hematologic/Lymphatic On Anticoagulants: No Patient History Medical History Acute idiopathic thrombocytopenic purpura Chest pain Cystocele with rectocele Diabetes Hyperlipidemia Hypertension Surgical History History of knee replacement Status post ovarian cystectomy Social History Smoking Status: Never smoker Smoking Status: Never smoker alcohol intake frequency: holidays/special occasions only Substance Use Type: does not use Exam Initial Vital Signs Initial Vital Signs: Vital Signs Temperature 97.6 F 09/16/21 10:02 Pulse Rate 110 H 09/16/21 10:02 Respiratory Rate 18 09/16/21 10:02 Blood Pressure 123/61 09/16/21 10:02 Pulse Oximetry 96 09/16/21 10:02 Const General: cooperative, comfortable and well developed [facility] Head: normal to inspection and normocephalic Resp Effort & Inspection: normal respiratory effort Auscultation: clear to auscultation bilaterally Cardio Rate: regular rate Rhythm: regular rhythm Heart Sounds: murmur GI Other: Right-sided abdominal tenderness and right upper quadrant tenderness. No left- sided tenderness. No right lower quadrant tenderness. Back/Spine/Pelvis Back: No CVA tenderness Skin General: no rashes or lesions noted Neuro General: patient alert, patient awake, patient oriented x3 and moves all extremities Extrem General: normal to inspection and capillary refill normal Psych Appearance: grossly normal and well kempt Course Orders Ordered: ED Orders 09/16/21 10:22 Complete Blood Count AUTO DIFF Stat Comprehensive Metabolic Panel Stat Lipase Stat 09/16/21 10:29 US abdomen limited Stat Vital Signs Vital signs: Vital Signs - 8 hr 09/16/21 12:59 Pulse Rate 101 H Blood Pressure 111/64 Pulse Oximetry 97 Medical Decision Making Medical Records Medical records reviewed: Yes I reviewed the patient's medical records. Lab Data Lab results reviewed: Yes I reviewed the patient's lab results. Result diagrams: 09/16/21 10:22 09/16/21 10:22 Labs: Lab Results 09/16/21 09/16/21 Range/Units 10:22 10:22 WBC 10.8 (4.5-11.0) X10^3/uL RBC 4.92 (4.0-5.2) X10^6/uL Hgb 14.3 (12.0-16.0) g/dL Hct 43.5 (36-46) % MCV 88.4 (80-100) fL MCH 29.1 (26-34) PG MCHC 33.0 (30-36) % RDW 15.0 H (11.6-14.8) % Plt Count 262 (150-400) X10^3/uL Neut % (Auto) 73.6 (50-75) % Lymph % (Auto) 19.7 L (25-40) % [place] % (Auto) 4.7 (3-14) % Eos % (Auto) 1.1 L (2-4) % Baso % (Auto) 0.9 (0-2) % Neut # (Auto) 8000 H (3482-4385) /uL Lymph # (Auto) 2100 (0865-1126) /uL [place] # (Auto) 500 (0-900) /uL Eos # (Auto) 100 (0-450) /uL Baso # (Auto) 100 (0-100) /uL Sodium 131 L (137-145) mmol/L Potassium 3.9 D (3.4-5.1) mmol/L Chloride 98 (98-107) mmol/L Carbon Dioxide 18 L (22-32) mmol/L BUN 50 H (7-17) mg/dL Creatinine 1.11 H (0.52-1.04) mg/dL Estimated GFR 50 L (>60) mL/min BUN/Creatinine Ratio 45.0 H (6-22) Glucose 313 H (80-110) mg/dL Calcium 10.0 (8.4-10.2) mg/dL Total Bilirubin 0.7 (0.2-1.3) mg/dL AST 28 (14-36) IU/L ALT 23 (<35) IU/L Alkaline Phosphatase 72 (38-126) U/L Total Protein 8.1 (6.3-8.2) g/dL Albumin 4.6 (3.5-5.0) g/dL Globulin 3.5 (1.7-4.1) g/dL Albumin/Globulin Ratio 1.3 (1.0-2.8) Lipase 444 H (23-300) U/L Imaging Data US - abdomen: Radiologist's Impression: [address] [address] Ultrasound Report Signed Patient: Madisyn Covarrubias MR#: [id number] : 1940 Acct:[id number] Age/Sex: 81 / F Date of Service: 09/16/21 Loc: ED Accession Number: [id number] ?? Procedure: US abdomen limited Ordering Provider: Vinny Logan D.O. PROCEDURE: US ABDOMEN LIMITED ? INDICATIONS:? RUQ EVALUATION OF GALLBLADDER ? TECHNIQUE:? Real-time focused scanning was performed of the abdomen, with image documentation.? ? COMPARISON:? [facility], CT, CT KIDNEY URETER BLADDER (KUB), 09/09/2021, 15:36.? [facility], US, US ABDOMEN LIMITED, 06/26/2019, 13:02. ? FINDINGS:? This study is limited by body habitus. ? The liver demonstrates normal size. The liver demonstrates generalized moderately increased echogenicity. This decreases ultrasound sensitivity for detection of hepatic masses.? ? ? The gallbladder is enlarged, with 2 prominent stones within it.? The gallbladder wall is not thickened, measuring 3 mm or less.? No specific pericholecystic fluid is seen.? The sonographic Olmos sign is negative. ? The common bile duct is enlarged at 9 mm. ? The pancreas is not well seen. ? ? ? IMPRESSION:? Enlarged gallbladder with 2 large stones seen within it.? No additional sonographic signs of cholecystitis are seen. ? Mild biliary dilatation, measuring 9 mm. ? The liver demonstrates increased echogenicity.? This finding is nonspecific, yet it is most commonly attributed to fatty infiltration.? ? ? Dictated by: Huey Bond M.D. on 09/16/2021 at 10:52 ? ? Approved by: Huey Bond M.D. on 09/16/2021 at 10:53?? MDM Narrative Medical decision making narrative: Patient did have COVID 7 days ago however although symptoms seem to have completely resolved. She is not hypoxic. No respiratory distress. No coughing. No fevers. Patient has right-sided abdominal discomfort. She had a CT scan performed recently that did not show any acute pathology. Right upper quadrant ultrasound shows gallstones but no signs of cholecystitis. Her LFTs and white count are unremarkable. I do have suspicion that her symptoms are caused by her gallstones although she seems to think that it may be the wxui-fjt-[id number] cough and cold preparations that she has been taking because over the past 12 bearden CS stop those medications her symptoms have improved. I did discuss the case with Dr. Barragan who is happy to see the patient is a outpatient. I did discuss this with the patient as well. She was given follow- up information for General surgery. No indication for admission to the hospital. She was given return precautions. She expressed understanding and agreement. Discharge Plan Departure Patient Disposition: Home Clinical Impression: Cholelithiasis, Abdominal pain Instructions: DI for Gallstones Activity Restrictions/Additional Instructions: Continue all of your medications as directed except for the [id number] cough and cold preparations that you have been taking. This may be causing you to have an upset stomach like we discussed. I do recommend that on Sunday you contact the general surgery office at the number provided below. Return to the emergency department for any new or worsening symptoms Prescriptions: No Action atorvastatin [Lipitor] 20 MG tablet 20 mg PO DAILY Qty: 0 0RF metformin 1,000 MG tablet 1,000 mg PO BID Qty: 0 0RF glimepiride [Amaryl] 4 MG tablet 8 mg PO DAILY Qty: 0 0RF triamterene-hydrochlorothiazid 37.5 MG/25 MG tablet 1 tab PO DAILY Qty: 0 0RF losartan 100 MG tablet 50 mg PO DAILY Qty: 0 0RF acetaminophen-codeine 30 MG/300 MG tablet 1 tab PO QID Qty: 0 0RF (DME) Self-Catheter, Female 14 Fr misc See Rx Instructions .Route Qty: 90 11RF Rx Instructions: Use as directed at night to self-cath as needed, every couple of hours estradiol [Estrace] 0.01 % (0.1 mg/gram) cream 0.5 g vaginal DAILY Qty: 42.5 0RF Rx Instructions: 0.5gm in the vagina every day for 2 wks and then twice a week up4 Probiotics Ultra 50 billion cell capsule 1 cap PO DAILY 0RF fexofenadine [Allergy Relief (fexofenadine)] 180 mg Tablet 180 mg PO DAILY 0RF cephalexin 500 mg capsule 500 mg PO BID Qty: 10 0RF ferrous sulfate 325 mg (65 mg iron) Tablet 325 mg PO DAILY 0RF Jardiance 10 mg Tablet 10 mg PO DAILY 0RF diclofenac sodium [Voltaren] 75 mg Tablet,Delayed Release (Dr/Ec) 75 mg PO BID 0RF Cbd Oil 1 tbsp BID 0RF Referrals: Isha Barragan MD [Physician] - Sindhu Green MD [Primary Care Provider] -
[2021-09-16 10:58] LABS: Alanine Aminotransferase 23 IU/L (<35); Albumin 4.6 g/dL (3.5-5.0); Albumin Globulin Ratio 1.3 (1.0-2.8); Alkaline Phosphatase 72 U/L (38-126); Aspartate Aminotransferase 28 IU/L (14-36); Bilirubin Total 0.7 mg/dL (0.2-1.3); Blood Urea Nitrogen 50 mg/dL (7-17); Carbon Dioxide 18 mmol/L (22-32); Chloride 98 mmol/L (98-107); Estimated Glomerular Filt Rate 50 mL/min (>60); Globulin 3.5 g/dL (1.7-4.1); Glucose 313 mg/dL (80-110); HEMOLYSIS < 15 (0-50); Lipase 444 U/L (23-300); Potassium 3.9 mmol/L (3.4-5.1); Sodium 131 mmol/L (137-145); Total Protein 8.1 g/dL (6.3-8.2)
[2021-09-16 12:59] VITALS: BP 111/64; PULSE 101; O2SAT 97
== END 2021-09-16 13:00 | disposition home or self-care (01) ==
PROVIDERS: Emergency Provider Emergency Medicine; PCP Student in an Organized Health Care Education/Training Program
DX: K80.20 Calculus of gallbladder without cholecystitis without obstruction (principal); R10.9 Unspecified abdominal pain
CPT/HCPCS: 36415; 76705; 80053; 83690; 85025; 99283

== ENCOUNTER → 2021-11-01 10:26 | Outpatient (CLI) | payer OTHER, MEDICAID, SELFPAY ==
[2019-07-03 09:40] VITALS: BMI 41.7
[2021-11-01 11:47] LABS: COVID19 -Nasal RAPID Negative (Negative)
== END ==
PROVIDERS: PCP Student in an Organized Health Care Education/Training Program; Visit Provider Surgery
DX: Z01.812 Encounter for preprocedural laboratory examination (principal); Z20.822 Contact with and (suspected) exposure to COVID-19
CPT/HCPCS: 87635; C9803

== ENCOUNTER 2021-11-02 11:49 | Day surgery (SDC) | payer OTHER, MEDICAID, SELFPAY ==
[2019-07-03 09:40] VITALS: BMI 41.7
[2021-10-10 07:31] VITALS: BMI 38.2
[2021-11-02] VITALS (10 sets, daily range): BP systolic 117–138; BP diastolic 56–77; PULSE 75–96; RESP 14–18; TEMP 36.4–37.2; O2SAT 88–100; BMI 38.2
--- NOTE | 2021-11-02 | PATH_ITS ---
[facility] Accession Number: [id number] . 01 Material submitted: . gallbladder - GALLBLADDER . 01 Clinical history: . LAP SHAILESH CALCULUS OF BILE DUCT WITHOUT CHOLANGITIS . 01 Diagnosis: Gallbladder, Cholecystectomy: Chronic cholecystitis and cholelithiasis. MRV 11/04/2021 1457 Local . 01 Electronically signed: . Yolanda Childs MD, Pathologist NPI- [id number] . 01 Gross description: . Received in formalin, labeled with the patient's name and gallbladder, and consists of an intact gallbladder measuring 12.3 x 4.7 x 3.2 cm. There is an annular narrowing 4.5 cm from the cystic duct with a diameter of 2.3 cm. The serosa around this area is inked black. The serosa is pink-green and congested with multiple areas of partial-thickness defect measuring 1.4 cm in greatest dimension. The cystic duct is received closed with a clamp and is inked blue. A bañuelos pericystic lymph node candidate is identified measuring 1.7 cm in greatest dimension. Opening the specimen reveals brown, viscous bile and multiple bañuelos-black, faceted calculi measuring up to 4.0 cm in greatest dimension. The mucosa is bañuelos, denuded, and trabecular with a slightly thickened area corresponding to the annular constriction. No yellow discoloration, polyps, or lesions are identified. The baker range from 0.1 cm to 0.3 cm thick. Livestock Nutritionist sections are submitted as follows: . A1: Cystic duct margin, one-half of lymph node candidate, and videotape sales representative full-thickness sections. A2: Livestock Nutritionist annular constriction. ([id number]) /FRR 11/04/2021 0303 Local . 01 Pathologist provided ICD-10: K80.50 . 01 CPT . 510086 Specimen Comment: A courtesy copy of this report has been sent to [phone] Performed at: 01 [facility] [address] [place] [address], [place], [place] [id number] MD Lyle Lipscomb MD Phone: [phone]
--- NOTE | 2021-11-02 12:52 | SUR.PREOP ---
Dr Rodriguez notified in OR #2 of patient Hx of COVID and idiopathic thrombocytopenic purpura with no new labs since 09/16/21 and lab scheduled to be drawn this week that patient cancelled. See new order for labs.
[2021-11-02 12:58] LABS: Add Manual Diff / Slide Review NO; Basophils Absolute Auto 100 /uL (0-100); Eosinophils Absolute Auto 200 /uL (0-450); Hematocrit 40.2 % (36-46); Hemoglobin 13.6 g/dL (12.0-16.0); Lymphocytes Absolute Auto 1300 /uL (1100-4500); Lymphocytes Percent Auto 21.3 % (25-40); Mean Corpuscular HGB Conc 33.8 % (30-36); Mean Corpuscular Hemoglobin 29.9 PG (26-34); Mean Corpuscular Volume 88.5 fL (80-100); Monocytes Absolute Auto 300 /uL (0-900); Monocytes Percent Auto 5.4 % (3-14); Neutrophils Absolute Auto 4200 /uL (1500-7000); Neutrophils Percent Auto 69.3 % (50-75); Platelet Count 159 X10^3/uL (150-400); Red Blood Cell Count 4.54 X10^6/uL (4.0-5.2); White Blood Cell Count 6.1 X10^3/uL (4.5-11.0)
[2021-11-02] MEDS: LACTATED RINGERS 1,000 ML 100 ML IV (13:02)
[2021-11-02 13:09] LABS: Prothrombin Time 11.5 SECONDS (10.1-12.7)
[2021-11-02 13:11] LABS: PTT Partial Thromboplastin Tim 29 SECONDS (26.4-36.2)
[2021-11-02 13:16] LABS: Alanine Aminotransferase 19 IU/L (<35); Albumin 4.4 g/dL (3.5-5.0); Albumin Globulin Ratio 1.4 (1.0-2.8); Alkaline Phosphatase 64 U/L (38-126); Aspartate Aminotransferase 20 IU/L (14-36); BUN Creatinine Ratio 35.6 (6-22); Bilirubin Total 0.8 mg/dL (0.2-1.3); Blood Urea Nitrogen 37 mg/dL (7-17); Calcium 9.3 mg/dL (8.4-10.2); Carbon Dioxide 28 mmol/L (22-32); Chloride 96 mmol/L (98-107); Estimated Glomerular Filt Rate 54 mL/min (>60); Globulin 3.1 g/dL (1.7-4.1); Glucose 283 mg/dL (80-110); HEMOLYSIS < 15 (0-50); Potassium 3.8 mmol/L (3.4-5.1); Sodium 135 mmol/L (137-145); Total Protein 7.5 g/dL (6.3-8.2)
--- NOTE | 2021-11-02 13:16 | SUR.PREOP ---
Incentive spirometer teaching done with return demonstration up to 2000ml.
[2021-11-02] MEDS: INSULIN REGULAR 100 UNIT/ML 3 ML VIAL SUBCUT ×3 (14:04→17:45)
--- NOTE | 2021-11-02 15:10 | PM.HP.1 ---
History of Present Illness History of Present Illness Date Patient Seen: 11/02/21 Time Patient Seen: 15:10 Chief complaint: LAP SHAILESH Narrative: 81-year-old woman with biliary colic here for elective cholecystectomy. Please refer to her H and P from September 2021 for further detail. No interval changes in health. Patient History Medical History Acute idiopathic thrombocytopenic purpura Arthritis Chest pain COVID-19 virus infection (09/09/21) Cystocele with rectocele Diabetes Hyperlipidemia Hypertension Psoriasis Surgical History History of knee replacement (2011) Status post ovarian cystectomy (1989) Family & Social History Social History: household members none Tobacco & Substance use: Smoking Status Never smoker alcohol intake never alcohol intake frequency holiday/special occasion Substance Use Type does not use Meds Home Medications and Allergies Home Medications Medication Instructions Recorded Confirmed Type atorvastatin 20 mg tablet (Lipitor) 20 mg PO DAILY ##0 11/25/10 11/02/21 History glimepiride 4 mg tablet (Amaryl) 8 mg PO DAILY ##0 11/25/10 11/02/21 History acetaminophen 300 mg-codeine 30 mg 1 tab PO TID ##0 11/27/16 11/02/21 History tablet losartan 100 mg tablet 100 mg PO DAILY ##0 11/27/16 10/10/21 History triamterene 37.5 1 tab PO DAILY ##0 11/27/16 10/06/21 History mg-hydrochlorothiazide 25 mg tablet fexofenadine 180 mg tablet 180 mg PO DAILY 05/20/19 11/02/21 History (Allergy Relief (fexofenadine)) Lactobacillus 1 cap PO DAILY 07/16/19 10/06/21 History no.51-Bifidobacterium no.4 50 billion cell capsule (up4 Probiotics Ultra) ferrous sulfate 325 mg (65 mg 325 mg PO DAILY 05/20/20 11/02/21 History iron) tablet empagliflozin 10 mg tablet 10 mg PO DAILY 10/18/20 11/02/21 History (Jardiance) catheter 14 Fr (Self-Catheter, #90 ea 07/12/21 09/22/21 Rx Female) metformin 1,000 mg tablet 1,000 mg PO BID 11/02/21 11/02/21 History Allergies Allergy/AdvReac Type Severity Reaction Status Date / Time Sulfa (Sulfonamide Allergy Severe ITCHING Verified 11/02/21 12:17 Antibiotics) [SULFA (SULFONAMIDE ANTIBIOTICS)] Exam Vital Signs (past 8 hours): - 11/02/21 12:58 Temperature 97.6 F Pulse Rate 96 H Respiratory Rate 18 Blood Pressure 122/77 Pulse Oximetry 96 Oxygen Delivery Method Room Air Oxygen Delivery Method Room Air Narrative Exam Narrative: General adult woman alert oriented no acute distress Abdomen soft nontender nondistended Objective Labs Result Diagrams: 11/02/21 12:49 11/02/21 12:49 Labs: Laboratory Results - last 24 hr 11/02/21 11/02/21 11/02/21 12:49 12:49 12:49 WBC 6.1 RBC 4.54 Hgb 13.6 Hct 40.2 MCV 88.5 MCH 29.9 MCHC 33.8 RDW 15.0 H Plt Count 159 Neut % (Auto) 69.3 Lymph % (Auto) 21.3 L [place] % (Auto) 5.4 Eos % (Auto) 3.0 Baso % (Auto) 1.0 Neut # (Auto) 4200 Lymph # (Auto) 1300 [place] # (Auto) 300 Eos # (Auto) 200 Baso # (Auto) 100 PT 11.5 INR 1.0 APTT 29 D Sodium 135 L Potassium 3.8 Chloride 96 L Carbon Dioxide 28 BUN 37 H Creatinine 1.04 Estimated GFR 54 L BUN/Creatinine Ratio 35.6 H Glucose 283 H Calcium 9.3 Total Bilirubin 0.8 AST 20 ALT 19 Alkaline Phosphatase 64 Total Protein 7.5 Albumin 4.4 Globulin 3.1 Albumin/Globulin Ratio 1.4 Assessment & Plan Assessment and plan (1) Biliary colic: Status: Acute Assessment & Plan narrative: 81-year-old woman with biliary colic here for elective laparoscopic cholecystectomy. Over of operation were again discussed with the patient as well as operative risks. Her questions have been answered and she is in agreement with this plan. Time Spent With Patient Critical Care time: I spent a total of [] minutes of critical care time on this patient's care today; this time is exclusive of procedural time.
[2021-11-02] MEDS: CEFAZOLIN 2 GM/20 ML SYRINGE IV (16:00)
--- NOTE | 2021-11-02 16:12 | SUR.OPER ---
Supine on padded OR bed, head on pillow, safety belt at thigh, left arm padded and tucked at side. Right arm secured on padded arm board <90 degrees abduction. Legs uncrossed. Padded footboard in place. Tape over blanket to secure lower legs. Gel pad placed under bilateral heels.
[2021-11-02] MEDS: BUPIVACAINE 0.25% (PF) VIAL 30 ML INJ (16:33)
--- NOTE | 2021-11-02 17:31 | PM.OP.1 ---
Operative Date/Time/Diagnoses Date of procedure: 11/02/21 Time of procedure: 17:32 Pre-op diagnosis: Biliary colic Post-op diagnosis: same Procedure & Clinicians Procedure: Laparoscopic cholecystectomy Same procedure as scheduled: Yes Indications: Symptoms and radiographic findings consistent with biliary colic Surgeon: Gus Montgomery Anesthesia Type: General Operative Notes Findings: Large stone filled gallbladder with chronic cholecystitis. Critical view of safety established. Specimen(s): other (Gallbladder) Estimated Blood Loss (mL): 50 Procedure in detail: The patient was placed supine on the table and bilateral lower extremity compression devices were applied. Anesthesia was induced they were intubated with an endotracheal tube and received 2g of Ancef. A time-out was performed. They were prepped and draped in sterile fashion. An infraumbilical incision was made, the umbilical stalk was elevated and the fascia was sharply incised entering the abdomen atraumatically. A blunt tip 12mm balloon trocar was then inserted, pneumoperitoneum was established and inspection of the abdomen demonstrated no evidence of injury. They were placed head up and right side up and then a 11 mm port was placed high in the epigastrium and two 5mm in the right upper quadrant. The gallbladder was very large and filled with large immobile stones. The gallbladder was grasped by the fundus and retracted over the liver and retracted laterally by the infundibulum. Using electrocautery the lateral plane between the gallbladder and the liver was opened towards the fundus. The gallbladder was then retracted laterally and the medial plane was developed in the same manner. With the gallbladder mobilized the bottom of the cystic plate was visualized. The hepatocystic triangle was meticulosly skeletonized from both the front and the back. Only two structures were then clearly seen entering the gallbladder the cystic duct and the cystic artery. With the critical view of safety fully established the cystic duct was clipped twice proximally and once distally using the 10 mm weck hemo clip applied under direct visualization and then sharply divided. The cystic artery was divided in the same fashion. I suspected that one of the clips on the cystic duct stump was not fully across the duct and therefore it was reinforced with a single PDS endoloop. The gallbladder was removed from the liver bed using electro cautery. The liver bed was then inspected for hemostasis and this was achieved. The abdomen was irrigated with sterile saline and inspection was made that showed the clips in good position. The specimen was removed using Endo-Catch, given the size I had to extend the skin and fascia to accomodate. The abdomen was desufflated. The umbilical fascia was closed with 0 Vicryl in a ktdyja-an-uceyw fashion under direct visualization. Skin incisions were irrigated and closed with 4-0 Monocryl. 30 ml of 0.25% bupivacaine was infiltrated into the subcutaneous tissue of the incisions. The wounds were sealed with Dermabond. Patient emerged from anesthesia was extubated and transferred to recovery in stable condition. The sponge and instrument count at the end of the operation was correct. Complications: none Post-operative Condition: stable Disposition: same day surgery
[2021-11-02] MEDS: fentaNYL 100 MCG/2 ML INJ 50 MCG IV (18:08)
[2021-11-02] MEDS: ONDANSETRON 4 MG/2 ML INJ IV (18:25)
[2021-11-02] MEDS: OXYCODONE/ACETAMINOPHEN 5/325 TABLET 1 TAB PO (18:25)
--- NOTE | 2021-11-02 18:45 | SUR.PHASEII ---
1830: Discharge instructions reviewed with patient and granddaughter. Pt A&Ox4, reports pain at tolerable, has voided, and dressed with SBA. Dressings C/D/I, VSS. IV DC'd intact. Pt left unit with all personal belongings via w/c with TASHI Clemons to ER exit to meet family who will stay with patient tonight.
== END 2021-11-02 18:45 | disposition home or self-care (01) ==
PROVIDERS: Anesthesiology; PCP Family Medicine; Referring Provider Surgery; Visit Provider Surgery
PROC: 0FT44ZZ Resection of Gallbladder, Percutaneous Endoscopic Approach (ICD-10-PCS; CPT 47562; principal; 2021-11-02 13:45)
DX: K80.10 Calculus of gallbladder with chronic cholecystitis without obstruction (principal); E66.01 Morbid (severe) obesity due to excess calories; I10 Essential (primary) hypertension; E11.9 Type 2 diabetes mellitus without complications; Z79.84 Long term (current) use of oral hypoglycemic drugs
CPT/HCPCS: 47562; 36415; 80053; 82962; 85025; 85610; 85730; 93005; 93010; J0690; J2405; J2704; J3010

== ENCOUNTER → 2023-03-13 09:18 | Outpatient (ROUT) | payer OTHER, MEDICAID, SELFPAY ==
[2019-07-03 09:40] VITALS: BMI 41.7
[2023-03-13 09:23] LABS: Hematocrit 43.2 % (36-46); Hemoglobin 14.3 g/dL (12.0-16.0); Mean Corpuscular HGB Conc 33.1 % (30-36); Mean Corpuscular Hemoglobin 29.2 PG (26-34); Mean Corpuscular Volume 88.2 fL (80-100); Platelet Count 84 X10^3/uL (150-400); Red Blood Cell Count 4.89 X10^6/uL (4.0-5.2); Red Cell Distribution Width 14.8 % (11.6-14.8)
== END ==
PROVIDERS: PCP Family Medicine; Visit Provider Family Medicine
DX: E11.22 Type 2 diabetes mellitus with diabetic chronic kidney disease (principal); N18.32 Chronic kidney disease, stage 3b; E78.2 Mixed hyperlipidemia; N30.90 Cystitis, unspecified without hematuria
CPT/HCPCS: 85027

== ENCOUNTER 2023-06-26 21:11 | Emergency (ER) | payer OTHER, SELFPAY ==
[2019-07-03 09:40] VITALS: BMI 41.7
[2023-06-26 21:15] VITALS: BP 151/96; PULSE 118; RESP 20; TEMP 37.2; O2SAT 97; BMI 36.9
--- NOTE | 2023-06-26 22:00 | PC.NURSE ---
Labs recieved from [facility], given to provider
[2023-06-26 22:06] LABS: Add Manual Diff / Slide Review NO; Basophils Absolute Auto 100 /uL (0-100); Eosinophils Absolute Auto 300 /uL (0-450); Eosinophils Percent Auto 3.3 % (2-4); Hematocrit 42.5 % (36-46); Hemoglobin 14.3 g/dL (12.0-16.0); Lymphocytes Absolute Auto 3700 /uL (1100-4500); Lymphocytes Percent Auto 35.4 % (25-40); Mean Corpuscular HGB Conc 33.7 % (30-36); Mean Corpuscular Hemoglobin 29.7 PG (26-34); Mean Corpuscular Volume 88.1 fL (80-100); Monocytes Absolute Auto 600 /uL (0-900); Monocytes Percent Auto 5.9 % (3-14); Neutrophils Absolute Auto 5600 /uL (1500-7000); Neutrophils Percent Auto 54.4 % (50-75); Red Blood Cell Count 4.82 X10^6/uL (4.0-5.2); Red Cell Distribution Width 15.2 % (11.6-14.8); White Blood Cell Count 10.4 X10^3/uL (4.5-11.0)
[2023-06-26 22:16] LABS: Platelet Count 16 X10^3/uL (150-400)
--- NOTE | 2023-06-26 22:23 | ED_ITS ---
HPI - Recheck/Abnormal Lab/Rx General Chief Complaint: Recheck/Abnormal Lab/Rx Stated Complaint: sent by MD for low platelets Time Seen by Provider: 06/26/23 22:18 Source: patient Mode of arrival: Ambulatory History of Present Illness HPI narrative: Patient has a remote history of ITP. She has diabetes and abnormal vaginal bleeding. Hyperlipidemia. She is noticed vaginal bleeding starting last week which stopped on Sunday. No lightheadedness. She went into the clinic today for a blood drawn found that she had a hemoglobin of 15, hematocrit of 48 and a platelet count 15. She was instructed to come to the hospital for further evaluation. She reports no illness other than the vaginal bleeding which is already stopped. Related Data Home Medications Medication Instructions Recorded Confirmed atorvastatin 20 mg tablet (Lipitor) 20 mg PO DAILY ##0 11/25/10 05/11/22 glimepiride 4 mg tablet (Amaryl) 8 mg PO DAILY ##0 11/25/10 05/11/22 acetaminophen 300 mg-codeine 30 mg 1 tab PO TID ##0 11/27/16 05/11/22 tablet losartan 100 mg tablet 100 mg PO DAILY ##0 11/27/16 05/11/22 triamterene 37.5 1 tab PO DAILY ##0 11/27/16 05/11/22 mg-hydrochlorothiazide 25 mg tablet fexofenadine 180 mg tablet 180 mg PO DAILY 05/20/19 05/11/22 (Allergy Relief (fexofenadine)) Lactobacillus 1 cap PO DAILY 07/16/19 05/11/22 no.51-Bifidobacterium no.4 50 billion cell capsule (up4 Probiotics Ultra) ferrous sulfate 325 mg (65 mg 325 mg PO DAILY 05/20/20 05/11/22 iron) tablet empagliflozin 10 mg tablet 10 mg PO DAILY 10/18/20 05/11/22 (Jardiance) metformin 1,000 mg tablet 1,000 mg PO BID 11/02/21 05/11/22 Previous Rx's Medication Instructions Recorded catheter 14 Fr (Self-Catheter, #90 ea 07/12/21 Female) dexamethasone 20 mg tablet 20 mg PO DAILY #3 tabs 06/26/23 Allergies Allergy/AdvReac Type Severity Reaction Status Date / Time Sulfa (Sulfonamide Allergy Severe ITCHING Verified 12/01/21 09:33 Antibiotics) [SULFA (SULFONAMIDE ANTIBIOTICS)] Patient History Medical History Acute idiopathic thrombocytopenic purpura Arthritis Chest pain COVID-19 virus infection (09/09/21) Cystocele with rectocele Diabetes Hyperlipidemia Hypertension Psoriasis Surgical History History of knee replacement (2011) Status post ovarian cystectomy (1989) Social History household members: none Smoking Status: Never smoker alcohol intake: never Smoking Status: Never smoker alcohol intake frequency: holidays/special occasions only Substance Use Type: does not use Exam Narrative Exam Narrative: GENERAL: Alert, cooperative and in no distress. HEAD: Atraumatic. Normocephalic. EYES: Sclera are clear without icterus ENT: No rhinorrh NECK: Supple. Full range of motion. CARDIOVASCULAR: Normal rate and rhythm without murmur gallop or rub. RESPIRATORY: Clear to auscultation. Breath sounds equal bilaterally. No wheezes, rales, or rhonchi. GASTROINTESTINAL: Abdomen soft, non-tender, nondistended. EXTREMITIES: No edema, full range of motion. No obvious trauma. NEURO: Nonfocal examination SKIN: No rash or erythema of visible areas PSYCH: Normally oriented. Normal range of affect. Appropriate behavior Initial Vital Signs Initial Vital Signs: Vital Signs Temperature 98.9 F 06/26/23 21:15 Pulse Rate 118 H 06/26/23 21:15 Respiratory Rate 20 06/26/23 21:15 Blood Pressure 151/96 H 06/26/23 21:15 Pulse Oximetry 97 06/26/23 21:15 Oxygen Delivery Method Room Air 06/26/23 21:15 Course Orders Ordered: ED Orders 06/26/23 21:40 CMP [Comprehensive Metabolic Panel] Stat Complete Blood Count AUTO DIFF Stat Vital Signs Vital signs: Vital Signs - 8 hr 06/26/23 21:15 06/26/23 23:01 Temperature 98.9 F Pulse Rate 118 H 84 Respiratory Rate 20 18 Blood Pressure 151/96 H 117/66 Pulse Oximetry 97 96 Oxygen Delivery Method Room Air Room Air MDM - Recheck/Abnormal Lab/Rx Lab Data 06/26/23 21:40 06/26/23 21:40 Labs: Lab Results 06/26/23 Range/Units 21:40 WBC 10.4 (4.5-11.0) X10^3/uL RBC 4.82 (4.0-5.2) X10^6/uL Hgb 14.3 (12.0-16.0) g/dL Hct 42.5 (36-46) % MCV 88.1 (80-100) fL MCH 29.7 (26-34) PG MCHC 33.7 (30-36) % RDW 15.2 H (11.6-14.8) % Plt Count 16 L* (150-400) X10^3/uL Neut % (Auto) 54.4 (50-75) % Lymph % (Auto) 35.4 (25-40) % [place] % (Auto) 5.9 (3-14) % Eos % (Auto) 3.3 (2-4) % Baso % (Auto) 1.0 (0-2) % Neut # (Auto) 5600 (0618-8195) /uL Lymph # (Auto) 3700 (2714-1636) /uL [place] # (Auto) 600 (0-900) /uL Eos # (Auto) 300 (0-450) /uL Baso # (Auto) 100 (0-100) /uL Platelet Estimate Decr RBC Morphology Norm Sodium 135 L (137-145) mmol/L Potassium 3.9 (3.4-5.1) mmol/L Chloride 97 L (98-107) mmol/L Carbon Dioxide 22 (22-32) mmol/L BUN 38 H (7-17) mg/dL Creatinine 1.06 H (0.52-1.04) mg/dL Estimated GFR 52 L (>60) mL/min BUN/Creatinine Ratio 35.8 H (6-22) Glucose 185 H (80-110) mg/dL Calcium 9.6 (8.4-10.2) mg/dL Total Bilirubin 0.7 (0.2-1.3) mg/dL AST 30 (14-36) IU/L ALT 28 (<35) IU/L Alkaline Phosphatase 62 (38-126) U/L Total Protein 7.6 (6.3-8.2) g/dL Albumin 4.3 (3.5-5.0) g/dL Globulin 3.3 (1.7-4.1) g/dL Albumin/Globulin Ratio 1.3 (1.0-2.8) MDM Narrative Medical decision making narrative: Severe thrombocytopenia at 15 with no active bleeding. Will contact Hematology for recommendations. Spoke to Dr. Levi from Hematology who recommended dexamethasone 20 mg daily for the next 4 days and outpatient follow-up with the clinic in the coming days. Said he would speak with his partner Dr. Harris to arrange this follow-up. Discharge Plan Departure Patient Disposition: Home Clinical Impression: Acute ITP Activity Restrictions/Additional Instructions: I spoke to who said that he would have his partner Dr. Harris, who you have previously met, follow-up with you in the next day or 2. He wanted you to take dexamethasone 20 mg a day for the next 4 days. I have sent a prescription in for you. Call Dr. Harris's clinic in the morning for follow-up later this week. You should return to the ED if you are having abnormal bleeding. Prescriptions: New dexamethasone 20 mg tablet 20 mg PO DAILY Qty: 3 0RF No Action atorvastatin [Lipitor] 20 MG tablet 20 mg PO DAILY Qty: 0 glimepiride [Amaryl] 4 MG tablet 8 mg PO DAILY Qty: 0 triamterene-hydrochlorothiazid 37.5 MG/25 MG tablet 1 tab PO DAILY Qty: 0 losartan 100 MG tablet 100 mg PO DAILY Qty: 0 acetaminophen-codeine 30 MG/300 MG tablet 1 tab PO TID Qty: 0 (DME) Self-Catheter, Female 14 Fr misc See Rx Instructions .Route Qty: 90 11RF Rx Instructions: Use as directed at night to self-cath as needed, every couple of hours up4 Probiotics Ultra 50 billion cell capsule 1 cap PO DAILY fexofenadine [Allergy Relief (fexofenadine)] 180 mg Tablet 180 mg PO DAILY ferrous sulfate 325 mg (65 mg iron) Tablet 325 mg PO DAILY Jardiance 10 mg Tablet 10 mg PO DAILY metformin 1,000 mg tablet 1,000 mg PO BID Referrals: Jackie Muñoz MD [Primary Care Provider] - Stand Alone Forms: Patient Portal/API
--- NOTE | 2023-06-26 22:56 | PC.NURSE ---
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
[2023-06-26 22:57] LABS: Alanine Aminotransferase 28 IU/L (<35); Albumin 4.3 g/dL (3.5-5.0); Albumin Globulin Ratio 1.3 (1.0-2.8); Alkaline Phosphatase 62 U/L (38-126); Aspartate Aminotransferase 30 IU/L (14-36); BUN Creatinine Ratio 35.8 (6-22); Bilirubin Total 0.7 mg/dL (0.2-1.3); Blood Urea Nitrogen 38 mg/dL (7-17); Calcium 9.6 mg/dL (8.4-10.2); Carbon Dioxide 22 mmol/L (22-32); Chloride 97 mmol/L (98-107); Estimated Glomerular Filt Rate 52 mL/min (>60); Globulin 3.3 g/dL (1.7-4.1); Glucose 185 mg/dL (80-110); HEMOLYSIS < 15 (0-50); Potassium 3.9 mmol/L (3.4-5.1); Sodium 135 mmol/L (137-145); Total Protein 7.6 g/dL (6.3-8.2)
[2023-06-26 23:01] VITALS: BP 117/66; PULSE 84; RESP 18; O2SAT 96
[2023-06-26 23:30] LABS: Platelet Estimate Decr; RBC Morphology Norm
[2023-06-26 23:57] VITALS: BP 134/60; PULSE 100; RESP 18; O2SAT 99
[2023-06-26] MEDS: DEXAMETHASONE 10 MG/ML VIAL 20 MG PO (23:57)
== END 2023-06-27 00:07 | disposition home or self-care (01) ==
PROVIDERS: Emergency Provider Family Medicine Addiction Medicine; PCP Family Medicine
DX: D69.3 Immune thrombocytopenic purpura (principal)
CPT/HCPCS: 36415; 80053; 85025; 99283; 99284; J1100

== ENCOUNTER → 2023-06-27 12:18 | Outpatient (CLI) | payer OTHER, SELFPAY ==
[2019-07-03 09:40] VITALS: BMI 41.7
[2023-06-27 12:50] LABS: Add Manual Diff / Slide Review NO; Basophils Absolute Auto 0 /uL (0-100); Basophils Percent Auto 0.2 % (0-2); Eosinophils Absolute Auto 0 /uL (0-450); Eosinophils Percent Auto 0.1 % (2-4); Hematocrit 43.3 % (36-46); Hemoglobin 14.2 g/dL (12.0-16.0); Lymphocytes Absolute Auto 1300 /uL (1100-4500); Lymphocytes Percent Auto 12.5 % (25-40); Mean Corpuscular HGB Conc 32.7 % (30-36); Mean Corpuscular Hemoglobin 29.3 PG (26-34); Mean Corpuscular Volume 89.5 fL (80-100); Monocytes Absolute Auto 100 /uL (0-900); Monocytes Percent Auto 0.8 % (3-14); Neutrophils Absolute Auto 8700 /uL (1500-7000); Neutrophils Percent Auto 86.4 % (50-75); Red Blood Cell Count 4.84 X10^6/uL (4.0-5.2); Red Cell Distribution Width 14.9 % (11.6-14.8); White Blood Cell Count 10.1 X10^3/uL (4.5-11.0)
[2023-06-27 12:54] LABS: Platelet Count 34 X10^3/uL (150-400)
[2023-06-27 13:02] LABS: Anisocytosis 1+; Platelet Estimate Decreased on smear
== END ==
LOC: LAB 12:20
PROVIDERS: PCP Family Medicine; Referring Provider Internal Medicine Hematology & Oncology; Visit Provider Internal Medicine Hematology & Oncology
DX: D69.3 Immune thrombocytopenic purpura (principal)
CPT/HCPCS: 36415; 85025

== ENCOUNTER → 2023-07-31 09:01 | Outpatient (CLI) | payer OTHER, SELFPAY ==
[2019-07-03 09:40] VITALS: BMI 41.7
[2023-07-31 10:02] LABS: Add Manual Diff / Slide Review NO; Basophils Absolute Auto 100 /uL (0-100); Basophils Percent Auto 1.1 % (0-2); Eosinophils Absolute Auto 500 /uL (0-450); Eosinophils Percent Auto 5.5 % (2-4); Hematocrit 41.7 % (36-46); Lymphocytes Absolute Auto 3300 /uL (1100-4500); Lymphocytes Percent Auto 35.2 % (25-40); Mean Corpuscular HGB Conc 33.6 % (30-36); Mean Corpuscular Volume 89.2 fL (80-100); Monocytes Absolute Auto 500 /uL (0-900); Monocytes Percent Auto 5.3 % (3-14); Neutrophils Absolute Auto 5000 /uL (1500-7000); Neutrophils Percent Auto 52.9 % (50-75); Platelet Count 153 X10^3/uL (150-400); Red Blood Cell Count 4.68 X10^6/uL (4.0-5.2); Red Cell Distribution Width 15.5 % (11.6-14.8); White Blood Cell Count 9.4 X10^3/uL (4.5-11.0)
== END ==
LOC: LAB 09:05
PROVIDERS: PCP Family Medicine; Referring Provider Internal Medicine Hematology & Oncology; Visit Provider Internal Medicine Hematology & Oncology
DX: D69.3 Immune thrombocytopenic purpura (principal)
CPT/HCPCS: 36415; 85025

== ENCOUNTER 2023-08-21 22:53 | Emergency (ER) | payer OTHER, SELFPAY ==
[2019-07-03 09:40] VITALS: BMI 41.7
[2023-08-21 22:59] VITALS: BP 146/82; PULSE 103; RESP 20; TEMP 36.1; O2SAT 100; BMI 36.9
--- NOTE | 2023-08-21 23:10 | ED.FEMALEGU ---
HPI - Female Genitourinary General Chief complaint: Urogenital-Female Stated complaint: unable to urinate since seeing MD Time Seen by Provider: 08/21/23 22:54 Source: patient Mode of arrival: Ambulatory History of Present Illness HPI Narrative: 83-year-old female with history of ITP, diabetes, bladder prolapse presents for inability to urinate since earlier this afternoon. Patient states that on yesterday she underwent a scope with a Dr. Kaiser at [facility]. She states that ?they poked me a lot down there?, and now her vaginal area is irritated. Since 4:00 p.m. she has been unable to urinate. Reports generalized discomfort in her pelvic region, denies other complaints. Related Data Home Medications Medication Instructions Recorded Confirmed atorvastatin 20 mg tablet (Lipitor) 20 mg PO DAILY ##0 11/25/10 05/11/22 glimepiride 4 mg tablet (Amaryl) 8 mg PO DAILY ##0 11/25/10 05/11/22 acetaminophen 300 mg-codeine 30 mg 1 tab PO TID ##0 11/27/16 05/11/22 tablet losartan 100 mg tablet 100 mg PO DAILY ##0 11/27/16 05/11/22 triamterene 37.5 1 tab PO DAILY ##0 11/27/16 05/11/22 mg-hydrochlorothiazide 25 mg tablet fexofenadine 180 mg tablet 180 mg PO DAILY 05/20/19 05/11/22 (Allergy Relief (fexofenadine)) Lactobacillus 1 cap PO DAILY 07/16/19 05/11/22 no.51-Bifidobacterium no.4 50 billion cell capsule (up4 Probiotics Ultra) ferrous sulfate 325 mg (65 mg 325 mg PO DAILY 05/20/20 05/11/22 iron) tablet empagliflozin 10 mg tablet 10 mg PO DAILY 10/18/20 05/11/22 (Jardiance) metformin 1,000 mg tablet 1,000 mg PO BID 11/02/21 05/11/22 Previous Rx's Medication Instructions Recorded catheter 14 Fr (Self-Catheter, #90 ea 07/12/21 Female) dexamethasone 20 mg tablet 20 mg PO DAILY #3 tabs 06/27/23 cephalexin 500 mg capsule 500 mg PO QID #28 caps 08/22/23 fluconazole 200 mg tablet 200 mg PO DAILY #2 tabs 08/22/23 (Diflucan) Allergies Allergy/AdvReac Type Severity Reaction Status Date / Time Sulfa (Sulfonamide Allergy Severe ITCHING Verified 12/01/21 09:33 Antibiotics) [SULFA (SULFONAMIDE ANTIBIOTICS)] Review of Systems Review of Systems Narrative: See HPI Patient History Medical History Arthritis Psoriasis COVID-19 virus infection (09/09/21) Acute idiopathic thrombocytopenic purpura Chest pain Diabetes Hyperlipidemia Hypertension Cystocele with rectocele Surgical History History of knee replacement (2011) Status post ovarian cystectomy (1989) alcohol intake frequency: holidays/special occasions only Substance Use Type: does not use Exam Initial Vital Signs Initial Vital Signs: Vital Signs Temperature 97 F L 08/21/23 22:59 Pulse Rate 103 H 08/21/23 22:59 Respiratory Rate 20 08/21/23 22:59 Blood Pressure 146/82 H 08/21/23 22:59 Pulse Oximetry 100 08/21/23 22:59 Oxygen Delivery Method Room Air 08/21/23 22:59 Const: Awake, alert, no acute distress, nontoxic appearing GI: Soft, nontender, nondistended, no rebound, 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 : 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, normal external genitalia, no obvious prolapse Skin: Warm, Dry, intact, no rashes Neuro: AO x3, CN II-XII grossly intact, moves all extremities Course Orders Ordered: ED Orders 08/22/23 00:40 CBC Auto Diff [Complete Blood Count AUTO DIFF] Stat CMP [Comprehensive Metabolic Panel] Stat 08/22/23 01:10 Urine Culture Stat Urine Microscopic Stat Discontinued Medications Cephalexin HCl (Cephalexin 250 Mg Capsule) 1,000 mg PO NOW ONE Stop: 08/22/23 01:19 Last Admin: 08/22/23 01:24 Dose: 1,000 mg Vital Signs Vital signs: Vital Signs - 8 hr 08/21/23 22:59 08/22/23 01:22 Temperature 97 F L Pulse Rate 103 H 98 H Respiratory Rate 20 18 Blood Pressure 146/82 H 112/86 Pulse Oximetry 100 97 Oxygen Delivery Method Room Air MDM - Female Genitourinary Lab Data 08/22/23 00:40 08/22/23 00:40 Labs: Lab Results 08/22/23 08/22/23 Range/Units 00:40 01:10 WBC 12.1 H (4.5-11.0) X10^3/uL RBC 4.54 (4.0-5.2) X10^6/uL Hgb 13.4 (12.0-16.0) g/dL Hct 40.6 (36-46) % MCV 89.4 (80-100) fL MCH 29.5 (26-34) PG MCHC 33.1 (30-36) % RDW 15.5 H (11.6-14.8) % Plt Count 130 L (150-400) X10^3/uL Neut % (Auto) 73.8 (50-75) % Lymph % (Auto) 17.9 L (25-40) % [place] % (Auto) 4.7 (3-14) % Eos % (Auto) 2.8 (2-4) % Baso % (Auto) 0.8 (0-2) % Neut # (Auto) 9000 H (2004-5571) /uL Lymph # (Auto) 2200 (3327-2529) /uL [place] # (Auto) 600 (0-900) /uL Eos # (Auto) 300 (0-450) /uL Baso # (Auto) 100 (0-100) /uL Sodium 134 L (137-145) mmol/L Potassium 4.2 (3.4-5.1) mmol/L Chloride 98 (98-107) mmol/L Carbon Dioxide 27 (22-32) mmol/L BUN 48 H (7-17) mg/dL Creatinine 1.15 H (0.52-1.04) mg/dL Estimated GFR 48 L (>60) mL/min BUN/Creatinine Ratio 41.7 H (6-22) Glucose 172 H (80-110) mg/dL Calcium 9.6 (8.4-10.2) mg/dL Total Bilirubin 0.7 (0.2-1.3) mg/dL AST 27 (14-36) IU/L ALT 27 (<35) IU/L Alkaline Phosphatase 51 (38-126) U/L Total Protein 6.9 (6.3-8.2) g/dL Albumin 4.4 (3.5-5.0) g/dL Globulin 2.5 (1.7-4.1) g/dL Albumin/Globulin Ratio 1.8 (1.0-2.8) Urine RBC 0-1/hpf (0-5/HPF) Urine WBC >100/hpf H (0-5/HPF) Ur Squamous Epith Cells 0-1 /hpf (0-5/HPF) Urine Bacteria Many (>30) H (None) Urine Yeast 30-100/hpf H (None) Ur Culture Indicated? Specimen cultured Vol Urine Centrifuged 10ml (spun) Urine Dip Bedside Urine Glucose 1000 mg/dl Bedside Urine Bilirubin - Negative Bedside Urine Ketone - Negative Urine Specific [place] 1.015 Bedside Urine Occult Blood +/- Bedside Urine pH 6 Bedside Urine Protein - Negative Bedside Urine Urobilinogen - Negative Bedside Urine Nitrite + Positive Bedside Urine Leukocytes - Negative Esterase MDM Narrative Medical decision making narrative: Inability to urinate since earlier this afternoon. Morrow catheter placed with drainage of approximately 400 cc of yellow urine. Labs significant for WBC count 12, platelets 130, creatinine 1.15 (baselin), normal electrolytes. Urinalysis positive for nitrites, bacteria, yeast. Patient was given an initial dose of Keflex in the emergency department and discharged on Diflucan and antibiotics. She was counseled to follow up with Urology for her urinary tract infection and retention Discharge Plan Departure Patient Disposition: Home Clinical Impression: Urinary retention, UTI (urinary tract infection) Instructions: DI for Urinary Tract Infection (UTI), DI for Urinary Retention in Women Activity Restrictions/Additional Instructions: Take all antibiotics as prescribed. Follow up with Urology if you continue to experience urinary retention. Prescriptions: New cephalexin 500 mg capsule 500 mg PO QID Qty: 28 0RF fluconazole [Diflucan] 200 mg tablet 200 mg PO DAILY Qty: 2 0RF Rx Instructions: Take 1 tablet now and 1 tablet after finishing antibiotics No Action atorvastatin [Lipitor] 20 MG tablet 20 mg PO DAILY Qty: 0 glimepiride [Amaryl] 4 MG tablet 8 mg PO DAILY Qty: 0 triamterene-hydrochlorothiazid 37.5 MG/25 MG tablet 1 tab PO DAILY Qty: 0 losartan 100 MG tablet 100 mg PO DAILY Qty: 0 acetaminophen-codeine 30 MG/300 MG tablet 1 tab PO TID Qty: 0 (DME) Self-Catheter, Female 14 Fr misc See Rx Instructions .Route Qty: 90 11RF Rx Instructions: Use as directed at night to self-cath as needed, every couple of hours up4 Probiotics Ultra 50 billion cell capsule 1 cap PO DAILY fexofenadine [Allergy Relief (fexofenadine)] 180 mg Tablet 180 mg PO DAILY dexamethasone 20 mg tablet 20 mg PO DAILY Qty: 3 0RF ferrous sulfate 325 mg (65 mg iron) Tablet 325 mg PO DAILY Jardiance 10 mg Tablet 10 mg PO DAILY metformin 1,000 mg tablet 1,000 mg PO BID Referrals: Jonathan Hernandez MD [Physician] - Jackie Muñoz MD [Primary Care Provider] - Stand Alone Forms: Patient Portal/API
[2023-08-22 00:56] LABS: Add Manual Diff / Slide Review NO; Basophils Absolute Auto 100 /uL (0-100); Basophils Percent Auto 0.8 % (0-2); Eosinophils Absolute Auto 300 /uL (0-450); Eosinophils Percent Auto 2.8 % (2-4); Hematocrit 40.6 % (36-46); Hemoglobin 13.4 g/dL (12.0-16.0); Lymphocytes Absolute Auto 2200 /uL (1100-4500); Lymphocytes Percent Auto 17.9 % (25-40); Mean Corpuscular HGB Conc 33.1 % (30-36); Mean Corpuscular Hemoglobin 29.5 PG (26-34); Mean Corpuscular Volume 89.4 fL (80-100); Monocytes Absolute Auto 600 /uL (0-900); Monocytes Percent Auto 4.7 % (3-14); Neutrophils Absolute Auto 9000 /uL (1500-7000); Neutrophils Percent Auto 73.8 % (50-75); Platelet Count 130 X10^3/uL (150-400); Red Blood Cell Count 4.54 X10^6/uL (4.0-5.2); Red Cell Distribution Width 15.5 % (11.6-14.8); White Blood Cell Count 12.1 X10^3/uL (4.5-11.0)
[2023-08-22 01:04] LABS: Alanine Aminotransferase 27 IU/L (<35); Albumin 4.4 g/dL (3.5-5.0); Albumin Globulin Ratio 1.8 (1.0-2.8); BUN Creatinine Ratio 41.7 (6-22); Bilirubin Total 0.7 mg/dL (0.2-1.3); Blood Urea Nitrogen 48 mg/dL (7-17); Calcium 9.6 mg/dL (8.4-10.2); Carbon Dioxide 27 mmol/L (22-32); Chloride 98 mmol/L (98-107); Estimated Glomerular Filt Rate 48 mL/min (>60); Globulin 2.5 g/dL (1.7-4.1); Glucose 172 mg/dL (80-110); HEMOLYSIS 52 (0-50); Sodium 134 mmol/L (137-145); Total Protein 6.9 g/dL (6.3-8.2)
[2023-08-22 01:06] LABS: Alkaline Phosphatase 51 U/L (38-126); Aspartate Aminotransferase 27 IU/L (14-36); Potassium 4.2 mmol/L (3.4-5.1)
[2023-08-22 01:18] LABS: Urine Volume 10mL (spun)
[2023-08-22 01:21] LABS: Bacteria Urine Many (>30); RBC Urine 0-1/HPF (0-5/HPF); Squamous Epithelial Cell Urine 0-1 /HPF (0-5/HPF); WBC Urine >100/HPF (0-5/HPF)
[2023-08-22 01:22] VITALS: BP 112/86; PULSE 98; RESP 18; O2SAT 97
[2023-08-22 01:23] VITALS: BP 112/86; PULSE 100; O2SAT 98
[2023-08-22 01:23] LABS: Culture Indicated Urine Specimen Cultured
[2023-08-22] MEDS: cephALEXin 250 MG CAPSULE 1000 MG PO (01:24)
[2023-08-22 01:30] VITALS: PULSE 97; RESP 18; O2SAT 96
--- NOTE | 2023-08-22 01:51 | PC.NURSE ---
leg bag placed on pt with instructions given
== END 2023-08-22 02:01 | disposition home or self-care (01) ==
PROVIDERS: Emergency Provider Emergency Medicine; PCP Family Medicine
DX: N39.0 Urinary tract infection, site not specified (principal); R33.9 Retention of urine, unspecified
CPT/HCPCS: 36415; 51798; 80053; 81003; 81015; 85025; 87077; 87086; 99283; 99284

== ENCOUNTER → 2023-09-06 12:47 | Outpatient (CLI) | payer OTHER, SELFPAY ==
[2019-07-03 09:40] VITALS: BMI 41.7
[2023-09-06 14:26] LABS: Add Manual Diff / Slide Review NO; Basophils Absolute Auto 100 /uL (0-100); Basophils Percent Auto 0.7 % (0-2); Eosinophils Absolute Auto 400 /uL (0-450); Eosinophils Percent Auto 3.8 % (2-4); Hematocrit 43.1 % (36-46); Hemoglobin 14.2 g/dL (12.0-16.0); Lymphocytes Absolute Auto 4300 /uL (1100-4500); Mean Corpuscular Hemoglobin 29.6 PG (26-34); Mean Corpuscular Volume 89.6 fL (80-100); Monocytes Absolute Auto 600 /uL (0-900); Monocytes Percent Auto 6.1 % (3-14); Neutrophils Absolute Auto 5000 /uL (1500-7000); Neutrophils Percent Auto 48.4 % (50-75); Platelet Count 141 X10^3/uL (150-400); Red Blood Cell Count 4.81 X10^6/uL (4.0-5.2); Red Cell Distribution Width 15.4 % (11.6-14.8); White Blood Cell Count 10.4 X10^3/uL (4.5-11.0)
[2023-09-06 14:51] LABS: Alanine Aminotransferase 29 IU/L (<35); Albumin 4.6 g/dL (3.5-5.0); Albumin Globulin Ratio 1.7 (1.0-2.8); Alkaline Phosphatase 65 U/L (38-126); Aspartate Aminotransferase 26 IU/L (14-36); Bilirubin Total 0.6 mg/dL (0.2-1.3); Blood Urea Nitrogen 35 mg/dL (7-17); Calcium 9.5 mg/dL (8.4-10.2); Carbon Dioxide 27 mmol/L (22-32); Chloride 97 mmol/L (98-107); Cholesterol 150 mg/dL (140-199); Estimated Glomerular Filt Rate 54 mL/min (>60); Globulin 2.7 g/dL (1.7-4.1); Glucose 177 mg/dL (80-110); HDL Cholesterol 34 mg/dL (40-60); HEMOLYSIS < 15 (0-50); Potassium 3.8 mmol/L (3.4-5.1); Sodium 134 mmol/L (137-145); Total Protein 7.3 g/dL (6.3-8.2); Triglycerides 440 mg/dL (35-150)
[2023-09-06 15:17] LABS: TSH w/ Reflex to FT4 1.87 uIU/mL (0.47-4.68)
[2023-09-06 17:25] LABS: Creatinine Urine Random 24.1 mg/dL
[2023-09-06 17:29] LABS: Microalbumi Creatinin Ratio Ur 228.2 ug/mg CR (<30); Microalbumin Urine Random 5.5 mg/dL (0-1.6)
== END ==
PROVIDERS: PCP Family Medicine; Referring Provider Family Medicine; Visit Provider Family Medicine
DX: E11.43 Type 2 diabetes mellitus with diabetic autonomic (poly)neuropathy (principal); G89.4 Chronic pain syndrome; I10 Essential (primary) hypertension; I12.9 Hypertensive chronic kidney disease with stage 1 through stage 4 chronic kidney disease, or unspecified chronic kidney disease; N18.31 Chronic kidney disease, stage 3a; E11.22 Type 2 diabetes mellitus with diabetic chronic kidney disease; D69.3 Immune thrombocytopenic purpura; D63.8 Anemia in other chronic diseases classified elsewhere; E78.2 Mixed hyperlipidemia; Z13.0 Encounter for screening for diseases of the blood and blood-forming organs and certain disorders involving the immune mechanism; Z13.29 Encounter for screening for other suspected endocrine disorder; I83.813 Varicose veins of bilateral lower extremities with pain; M15.9 Polyosteoarthritis, unspecified; K42.9 Umbilical hernia without obstruction or gangrene
CPT/HCPCS: 36415; 80053; 80061; 82043; 82570; 83036; 84443; 85025

== ENCOUNTER 2023-09-12 00:21 | Emergency (ER) | payer OTHER, SELFPAY ==
[2019-07-03 09:40] VITALS: BMI 41.7
[2023-09-12 00:28] VITALS: PULSE 98; O2SAT 98
[2023-09-12 00:29] VITALS: BP 154/74; PULSE 97; O2SAT 99
[2023-09-12 00:30] VITALS: PULSE 97; O2SAT 99
[2023-09-12 00:32] VITALS: BP 154/74; PULSE 94; RESP 18; TEMP 36.6; O2SAT 99; BMI 36.9
--- NOTE | 2023-09-12 00:33 | ED.FEMALEGU ---
HPI - Female Genitourinary General Chief complaint: Urogenital-Female Stated complaint: Can't urinate Time Seen by Provider: 09/12/23 00:24 History of Present Illness HPI Narrative: 83-year-old female presents for urinary retention. Patient is seen in our emergency department 08/20 for same complaint and a Morrow catheter was placed. At that time laboratory work was unremarkable. Patient states that she was had an indwelling Morrow catheter in place until today. The catheter was removed at her primary care doctor's office at 1:00 p.m.. She states that since then she has not been able to urinate. Related Data Home Medications Medication Instructions Recorded Confirmed atorvastatin 20 mg tablet (Lipitor) 20 mg PO DAILY ##0 11/25/10 05/11/22 glimepiride 4 mg tablet (Amaryl) 8 mg PO DAILY ##0 11/25/10 05/11/22 acetaminophen 300 mg-codeine 30 mg 1 tab PO TID ##0 11/27/16 05/11/22 tablet losartan 100 mg tablet 100 mg PO DAILY ##0 11/27/16 05/11/22 triamterene 37.5 1 tab PO DAILY ##0 11/27/16 05/11/22 mg-hydrochlorothiazide 25 mg tablet fexofenadine 180 mg tablet 180 mg PO DAILY 05/20/19 05/11/22 (Allergy Relief (fexofenadine)) Lactobacillus 1 cap PO DAILY 07/16/19 05/11/22 no.51-Bifidobacterium no.4 50 billion cell capsule (up4 Probiotics Ultra) ferrous sulfate 325 mg (65 mg 325 mg PO DAILY 05/20/20 05/11/22 iron) tablet empagliflozin 10 mg tablet 10 mg PO DAILY 10/18/20 05/11/22 (Jardiance) metformin 1,000 mg tablet 1,000 mg PO BID 11/02/21 05/11/22 Previous Rx's Medication Instructions Recorded catheter 14 Fr (Self-Catheter, #90 ea 07/12/21 Female) dexamethasone 20 mg tablet 20 mg PO DAILY #3 tabs 06/27/23 cephalexin 500 mg capsule 500 mg PO QID #28 caps 08/22/23 fluconazole 200 mg tablet 200 mg PO DAILY #2 tabs 08/22/23 (Diflucan) Allergies Allergy/AdvReac Type Severity Reaction Status Date / Time Sulfa (Sulfonamide Allergy Severe ITCHING Verified 12/01/21 09:33 Antibiotics) [SULFA (SULFONAMIDE ANTIBIOTICS)] Patient History Medical History Arthritis Psoriasis COVID-19 virus infection (09/09/21) Acute idiopathic thrombocytopenic purpura Chest pain Diabetes Hyperlipidemia Hypertension Cystocele with rectocele Surgical History History of knee replacement (2011) Status post ovarian cystectomy (1989) alcohol intake frequency: holidays/special occasions only Substance Use Type: does not use Exam Initial Vital Signs Initial Vital Signs: Vital Signs Pulse Rate 98 H 09/12/23 00:28 Pulse Oximetry 98 09/12/23 00:28 Const: Awake, alert, no acute distress, nontoxic appearing Cardiac: regular rate, regular rhythm RESP: unlabored, clear bilaterally, no wheezing GI: Soft, nontender, nondistended, no rebound, no guarding Skin: Warm, Dry, intact, no rashes Neuro: AO x3, CN II-XII grossly intact, moves all extremities Course Vital Signs Vital signs: Vital Signs - 8 hr 09/12/23 00:28 09/12/23 00:29 09/12/23 00:29 Temperature Pulse Rate 98 H 97 H Respiratory Rate Blood Pressure 154/74 H Pulse Oximetry 98 99 Oxygen Delivery Method 09/12/23 00:30 09/12/23 00:32 09/12/23 00:58 Temperature 97.8 F Pulse Rate 97 H 94 H Respiratory Rate 18 Blood Pressure 154/74 H 115/59 L Pulse Oximetry 99 99 Oxygen Delivery Method Room Air 09/12/23 00:58 09/12/23 01:04 Temperature Pulse Rate 91 H 89 Respiratory Rate Blood Pressure 115/59 L Pulse Oximetry 98 98 Oxygen Delivery Method Room Air Room Air MDM - Female Genitourinary MDM Narrative Medical decision making narrative: Urinary retention after Morrow removed earlier today. Uncertain why patient would be retaining urine, however a Morrow was placed with drainage of clear yellow urine. Patient was advised that she should follow up with Urology. Morrow catheter care instructions discussed at bedside Discharge Plan Departure Patient Disposition: Home Clinical Impression: Urinary retention Instructions: DI for Urinary Retention in Women Activity Restrictions/Additional Instructions: Follow up with Urology. Further testing may be needed to figure out why you are unable to urinate. Prescriptions: No Action atorvastatin [Lipitor] 20 MG tablet 20 mg PO DAILY Qty: 0 glimepiride [Amaryl] 4 MG tablet 8 mg PO DAILY Qty: 0 triamterene-hydrochlorothiazid 37.5 MG/25 MG tablet 1 tab PO DAILY Qty: 0 losartan 100 MG tablet 100 mg PO DAILY Qty: 0 acetaminophen-codeine 30 MG/300 MG tablet 1 tab PO TID Qty: 0 (DME) Self-Catheter, Female 14 Fr misc See Rx Instructions .Route Qty: 90 11RF Rx Instructions: Use as directed at night to self-cath as needed, every couple of hours up4 Probiotics Ultra 50 billion cell capsule 1 cap PO DAILY fexofenadine [Allergy Relief (fexofenadine)] 180 mg Tablet 180 mg PO DAILY dexamethasone 20 mg tablet 20 mg PO DAILY Qty: 3 0RF cephalexin 500 mg capsule 500 mg PO QID Qty: 28 0RF fluconazole [Diflucan] 200 mg tablet 200 mg PO DAILY Qty: 2 0RF Rx Instructions: Take 1 tablet now and 1 tablet after finishing antibiotics ferrous sulfate 325 mg (65 mg iron) Tablet 325 mg PO DAILY Jardiance 10 mg Tablet 10 mg PO DAILY metformin 1,000 mg tablet 1,000 mg PO BID Referrals: Carie Hanley MD [Physician] - Jackie Muñoz MD [Primary Care Provider] - Stand Alone Forms: Patient Portal/API
[2023-09-12 00:58] VITALS: BP 115/59; PULSE 91; O2SAT 98
[2023-09-12 01:04] VITALS: BP 115/59; PULSE 89; O2SAT 98
== END 2023-09-12 01:05 | disposition home or self-care (01) ==
PROVIDERS: Emergency Provider Emergency Medicine; PCP Family Medicine
DX: R33.9 Retention of urine, unspecified (principal)
CPT/HCPCS: 51702; 99283

== ENCOUNTER → 2023-09-17 10:29 | Outpatient (CLI) | payer OTHER, MEDICAID, SELFPAY ==
[2019-07-03 09:40] VITALS: BMI 41.7
== END ==
LOC: WC 10:29
PROVIDERS: PCP Family Medicine; Referring Provider Family Medicine; Visit Provider Surgery
DX: L89.313 Pressure ulcer of right buttock, stage 3 (principal); L89.153 Pressure ulcer of sacral region, stage 3; L53.9 Erythematous condition, unspecified; E11.42 Type 2 diabetes mellitus with diabetic polyneuropathy; E11.628 Type 2 diabetes mellitus with other skin complications; L40.0 Psoriasis vulgaris
CPT/HCPCS: 11042; 99203; 99213

== ENCOUNTER → 2023-09-20 10:09 | Outpatient (CLI) | payer OTHER, MEDICAID, SELFPAY ==
[2019-07-03 09:40] VITALS: BMI 41.7
== END ==
LOC: WC 10:10
PROVIDERS: PCP Family Medicine; Referring Provider Family Medicine; Visit Provider Surgery
DX: L89.313 Pressure ulcer of right buttock, stage 3 (principal); L89.153 Pressure ulcer of sacral region, stage 3; L53.9 Erythematous condition, unspecified
CPT/HCPCS: 99213

== ENCOUNTER → 2023-09-25 13:24 | Outpatient (CLI) | payer OTHER, MEDICAID, SELFPAY ==
[2019-07-03 09:40] VITALS: BMI 41.7
== END ==
PROVIDERS: PCP Family Medicine; Visit Provider Urology
DX: N39.0 Urinary tract infection, site not specified (principal)
CPT/HCPCS: 87077; 87086

== ENCOUNTER → 2023-09-25 14:16 | Outpatient (CLI) | payer OTHER, MEDICAID, SELFPAY ==
[2019-07-03 09:40] VITALS: BMI 41.7
== END ==
PROVIDERS: PCP Family Medicine; Referring Provider Family Medicine; Visit Provider Surgery
DX: L89.313 Pressure ulcer of right buttock, stage 3 (principal); L89.153 Pressure ulcer of sacral region, stage 3; L89.893 Pressure ulcer of other site, stage 3; L53.9 Erythematous condition, unspecified; E11.628 Type 2 diabetes mellitus with other skin complications; L40.9 Psoriasis, unspecified
CPT/HCPCS: 11042

== ENCOUNTER → 2023-10-09 10:27 | Outpatient (CLI) | payer OTHER, MEDICAID, SELFPAY ==
[2019-07-03 09:40] VITALS: BMI 41.7
== END ==
LOC: WC 10:27
PROVIDERS: PCP Family Medicine; Referring Provider Family Medicine; Visit Provider Surgery
DX: L89.313 Pressure ulcer of right buttock, stage 3 (principal); E11.628 Type 2 diabetes mellitus with other skin complications; L40.9 Psoriasis, unspecified
CPT/HCPCS: 11042

== ENCOUNTER 2023-10-10 15:21 | Inpatient (IN) | payer OTHER, MEDICAID, SELFPAY ==
[2019-07-03 09:40] VITALS: BMI 41.7
[2023-10-10] VITALS (15 sets, daily range): BP systolic 93–125; BP diastolic 51–70; PULSE 95–118; RESP 15–20; TEMP 35.7–36.5; O2SAT 94–99; BMI 36.9; BMI 36.6
--- NOTE | 2023-10-10 15:44 | DI.CT.S_ITS ---
PROCEDURE: CT ABDOMEN PELVIS W CON INDICATIONS: concern for incarcerated hernia, hx of sx 1990s TECHNIQUE: After the administration of intravenous contrast, axial sections acquired from the lung bases to the pubic symphysis. Coronal and sagittal reformats were performed. For radiation dose reduction, the following was used: automated exposure control, adjustment of mA and/or kV according to patient size. COMPARISON: Located Within [facility], CT, CT ABDOMEN PELVIS W CON, 06/18/2019, 12:07. FINDINGS: Image quality: Diagnostic. Lower Chest: No significant findings. ABDOMEN: Liver: Moderate hepatic steatosis. Mild hepatomegaly. No discrete mass. Gallbladder: Surgically absent. Biliary ducts: Appropriate biliary tree caliber post cholecystectomy. Pancreas: Scattered pancreatic calcifications. No ductal dilatation. Spleen: Size is within normal limits. Adrenal Glands: No adrenal nodules. Kidneys and Ureters: Mild bilateral cortical thinning. Nonobstructing right lower pole intrarenal calcification. No hydronephrosis or perinephric inflammation. No hydroureter. Stomach and Bowel: Normal stomach. Small bowel loops are decompressed. No obstruction. Normal appendix. Moderate sigmoid diverticulosis. No acute inflammation. Peritoneum: No abnormal intraperitoneal fluid. No free air. Ventral Wall: There is a wide necked lower abdominal midline small bowel containing hernia. No inflammation or fluid in the hernia sac. There are also a few wide necked fat containing supraumbilical hernias also in the midline. No inflammatory changes. Abdominal Nodes: No retroperitoneal or mesenteric adenopathy by size criteria. Vessels: Aorta and inferior vena cava are normal in size. Mild abdominal aortic atherosclerotic calcification. PELVIS: Pelvic Organs: Hysterectomy Bladder: Morrow catheter decompressing the urinary bladder. Pelvic Nodes: No enlarged lymph nodes. Miscellaneous: No inguinal hernias are seen. Bones: No aggressive osseous abnormality. IMPRESSION: No evidence of incarcerated hernia. There is a nonobstructing bowel containing infraumbilical midline hernia with a wide neck. Moderate hepatic steatosis. Dictated by: Judie Vargas M.D. on 10/10/2023 at 18:35 Approved by: Judie Vargas M.D. on 10/10/2023 at 18:40
[2023-10-10 16:51] LABS: Add Manual Diff / Slide Review NO; Basophils Absolute Auto 200 /uL (0-100); Eosinophils Absolute Auto 100 /uL (0-450); Eosinophils Percent Auto 0.8 % (2-4); Hematocrit 46.7 % (36-46); Hemoglobin 15.3 g/dL (12.0-16.0); Lymphocytes Absolute Auto 3400 /uL (1100-4500); Lymphocytes Percent Auto 21.5 % (25-40); Mean Corpuscular HGB Conc 32.9 % (30-36); Mean Corpuscular Hemoglobin 29.5 PG (26-34); Mean Corpuscular Volume 89.8 fL (80-100); Monocytes Absolute Auto 600 /uL (0-900); Neutrophils Absolute Auto 11600 /uL (1500-7000); Neutrophils Percent Auto 72.7 % (50-75); Platelet Count 193 X10^3/uL (150-400); Red Blood Cell Count 5.19 X10^6/uL (4.0-5.2); Red Cell Distribution Width 15.3 % (11.6-14.8); White Blood Cell Count 15.9 X10^3/uL (4.5-11.0)
[2023-10-10 17:02] LABS: Alanine Aminotransferase 48 IU/L (<35); Albumin 4.4 g/dL (3.5-5.0); Albumin Globulin Ratio 1.6 (1.0-2.8); Alkaline Phosphatase 55 U/L (38-126); Aspartate Aminotransferase 48 IU/L (14-36); Bilirubin Total 0.9 mg/dL (0.2-1.3); Blood Urea Nitrogen 71 mg/dL (7-17); Calcium 9.5 mg/dL (8.4-10.2); Carbon Dioxide 22 mmol/L (22-32); Chloride 97 mmol/L (98-107); Estimated Glomerular Filt Rate 37 mL/min (>60); Globulin 2.8 g/dL (1.7-4.1); Glucose 87 mg/dL (80-110); HEMOLYSIS 119 (0-50); Lipase 121 U/L (23-300); Potassium 4.6 mmol/L (3.4-5.1); Sodium 133 mmol/L (137-145); Total Protein 7.2 g/dL (6.3-8.2)
[2023-10-10 17:58] LABS: Appearance Urine UA SL CLOUDY; Bilirubin Urine UA NEGATIVE (NEGATIVE); Color Urine UA YELLOW; Glucose Urine UA NEGATIVE (Negative); Ketones Urine UA NEGATIVE (NEGATIVE); Leukocyte Esterase Urine UA TRACE (NEGATIVE); Nitrite Urine UA POSITIVE (Negative); Occult Blood Urine UA 1+ (Negative); Protein Urine UA NEGATIVE (Negative); Urobilinogen Urine UA 0.2 E.U./dL (0.2)
[2023-10-10 17:59] LABS: pH Urine UA 5.5 (4.5-8.0)
[2023-10-10 18:10] LABS: Urine Volume 10mL (spun)
[2023-10-10 18:11] LABS: Amorphous Sediment Urine 2+; Bacteria Urine Moderate (10-30); Culture Indicated Urine Specimen Cultured; RBC Urine 1-5/HPF (0-5/HPF); Squamous Epithelial Cell Urine 0-1 /HPF (0-5/HPF); WBC Urine 1-5/HPF (0-5/HPF)
--- NOTE | 2023-10-10 18:57 | ED_ITS ---
HPI - General Adult General Chief complaint: Abdominal Pain Stated complaint: snt by [facility] of[facility], Hernia Time Seen by Provider: 10/10/23 15:44 Source: patient, RN notes reviewed and old records reviewed Mode of arrival: Wheelchair History of Present Illness HPI narrative: 83-year-old woman with a history of hypertension, diabetes, hyperlipidemia, ITP, psoriatic arthritis, with 2 days of severe periumbilical pain with nausea and emesis she has a known incisional hernia from prior exploratory laparotomy for an ovarian cyst. She was seen by Dr. Montgomery in clinic with concern for incarcerated infraumbilical incisional hernia because of body habitus exam was limited and she was sent to the emergency department for further evaluation and pain control. Patient describes severe lower abdominal pain, apparently was seen in August by dentist attendant in [place] who ?examined her for 2 hours? told her to come back 4 times, she declined did not understand the events of the visit and after that was unable to void and has had a Morrow catheter in place since. She currently is on Keflex and fluconazole. Related Data Home Medications Medication Instructions Recorded Confirmed atorvastatin 20 mg tablet (Lipitor) 20 mg PO DAILY ##0 11/25/10 10/10/23 glimepiride 4 mg tablet (Amaryl) 8 mg PO DAILY ##0 11/25/10 10/10/23 acetaminophen 300 mg-codeine 30 mg 1 tab PO TID ##0 11/27/16 10/10/23 tablet losartan 100 mg tablet 100 mg PO DAILY ##0 11/27/16 10/10/23 triamterene 37.5 1 tab PO DAILY ##0 11/27/16 10/10/23 mg-hydrochlorothiazide 25 mg tablet fexofenadine 180 mg tablet 180 mg PO DAILY 05/20/19 10/10/23 (Allergy Relief (fexofenadine)) Lactobacillus 1 cap PO DAILY 07/16/19 10/10/23 no.51-Bifidobacterium no.4 50 billion cell capsule (up4 Probiotics Ultra) ferrous sulfate 325 mg (65 mg 325 mg PO DAILY 05/20/20 10/10/23 iron) tablet empagliflozin 10 mg tablet 10 mg PO DAILY 10/18/20 10/10/23 (Jardiance) metformin 1,000 mg tablet 1,000 mg PO BID 11/02/21 10/10/23 carboxymethylcellulose sodium 0.25 drp ophthalmic (eye) DAILY 09/25/23 10/10/23 % eye drops (TheraTears) cyanocobalamin (vitamin B-12) 1,000 mcg SUBCUT QMONTH 09/25/23 10/10/23 1,000 mcg/mL injection kit cyclosporine 0.05 % eye drops drp ophthalmic (eye) Q12H 09/25/23 10/10/23 dulaglutide 0.75 mg/0.5 mL 0.75 mg SUBCUT QWEEK 09/25/23 10/10/23 subcutaneous pen injector (Trulicity) fenofibrate nanocrystallized 48 mg 48 mg PO DAILY 09/25/23 10/10/23 tablet Previous Rx's Medication Instructions Recorded catheter 14 Fr (Self-Catheter, #90 ea 07/12/21 Female) dexamethasone 20 mg tablet 20 mg PO DAILY #3 tabs 06/27/23 fluconazole 200 mg tablet 200 mg PO DAILY #2 tabs 08/22/23 (Diflucan) levofloxacin 750 mg tablet 750 mg PO DAILY #10 tabs 10/03/23 minocycline 100 mg capsule 200 mg (2 x 100 mg) PO Q12H #40 10/03/23 caps Allergies Allergy/AdvReac Type Severity Reaction Status Date / Time Sulfa (Sulfonamide Allergy Severe ITCHING Verified 10/10/23 15:06 Antibiotics) [SULFA (SULFONAMIDE ANTIBIOTICS)] Patient History Medical History (Updated 10/10/23 @ 20:37 by Yudith Reina MD) Gross hematuria Arthritis Psoriasis COVID-19 virus infection (09/09/21) Acute idiopathic thrombocytopenic purpura Chest pain Diabetes Hyperlipidemia Hypertension Cystocele with rectocele Surgical History (Updated 09/25/23 @ 11:59 by Jonathan Hernandez MD) Hx of cholecystectomy History of knee replacement (2011) Status post ovarian cystectomy (1989) Family History Sister Cancer Sister Cancer Mother Diabetes mellitus Other Hypertension UTI (urinary tract infection) Social History marital status: number of children: 3 household members: none Smoking Status: Never smoker alcohol intake: never caffeine: Yes Type(s) of exercise: walking Smoking Status: Never smoker alcohol intake frequency: holidays/special occasions only Substance Use Type: does not use Exam Initial Vital Signs Initial Vital Signs: Vital Signs Temperature 97.7 F 10/10/23 16:15 Pulse Rate 108 H 10/10/23 16:15 Respiratory Rate 18 10/10/23 16:15 Blood Pressure 96/51 L 10/10/23 16:15 Pulse Oximetry 99 10/10/23 16:15 Oxygen Delivery Method Room Air 10/10/23 16:15 Course Orders Ordered: ED Orders 10/10/23 15:44 CT abdomen pelvis w con Stat 10/10/23 16:35 CBC Auto Diff [Complete Blood Count AUTO DIFF] Stat CMP [Comprehensive Metabolic Panel] Stat Lipase Stat 10/10/23 17:41 Urinalysis and Microscopic Stat Urine Culture Stat 10/10/23 19:09 Blood Culture Stat 10/10/23 19:35 Lactate (Lactic Acid) Stat Hydromorphone HCl (Hydromorphone 0.5 Mg Inj) 0.5 mg IV Q15MIN PRN PRN Reason: Pain, Levofloxacin (Levaquin) 500 mg in 100 mls @ 100 mls/hr IV Q24H SONIDO Discontinued Medications Sodium Chloride (Normal Saline 0.9%) 1,000 mls @ 1,000 mls/hr IV BOLUS ONE Stop: 10/10/23 20:21 Meropenem 500 mg/ Sodium (Chloride) 100 mls @ 200 mls/hr IV NOW ONE Stop: 10/10/23 19:52 Vital Signs Vital signs: Vital Signs - 8 hr 10/10/23 16:15 10/10/23 17:37 10/10/23 17:39 Temperature 97.7 F Pulse Rate 108 H 116 H Respiratory Rate 18 Blood Pressure 96/51 L 125/61 Pulse Oximetry 99 96 Oxygen Delivery Method Room Air Room Air 10/10/23 17:39 10/10/23 18:00 10/10/23 18:01 Temperature Pulse Rate 114 H 112 H Respiratory Rate 19 16 Blood Pressure 93/53 L Pulse Oximetry 98 97 Oxygen Delivery Method 10/10/23 18:01 10/10/23 18:30 10/10/23 18:30 Temperature Pulse Rate 98 H 95 H Respiratory Rate 16 18 Blood Pressure 103/60 Pulse Oximetry 98 97 Oxygen Delivery Method 10/10/23 19:00 10/10/23 19:00 10/10/23 19:30 Temperature Pulse Rate 113 H 113 H Respiratory Rate 16 19 Blood Pressure 101/53 L Pulse Oximetry 95 97 Oxygen Delivery Method 10/10/23 20:00 Temperature Pulse Rate 116 H Respiratory Rate 15 Blood Pressure Pulse Oximetry 94 Oxygen Delivery Method Room Air Medical Decision Making Lab Data 10/10/23 16:35 10/10/23 16:35 Labs: Lab Results 10/10/23 10/10/23 10/10/23 Range/Units 16:35 17:41 19:35 WBC 15.9 H (4.5-11.0) X10^3/uL RBC 5.19 (4.0-5.2) X10^6/uL Hgb 15.3 (12.0-16.0) g/dL Hct 46.7 H (36-46) % MCV 89.8 (80-100) fL MCH 29.5 (26-34) PG MCHC 32.9 (30-36) % RDW 15.3 H (11.6-14.8) % Plt Count 193 (150-400) X10^3/uL Neut % (Auto) 72.7 (50-75) % Lymph % (Auto) 21.5 L (25-40) % [place] % (Auto) 4.0 (3-14) % Eos % (Auto) 0.8 L (2-4) % Baso % (Auto) 1.0 (0-2) % Neut # (Auto) 00129 H (3108-3504) /uL Lymph # (Auto) 3400 (8138-1964) /uL [place]field # (Auto) 600 (0-900) /uL Eos # (Auto) 100 (0-450) /uL Baso # (Auto) 200 H (0-100) /uL Sodium 133 L (137-145) mmol/L Potassium 4.6 (3.4-5.1) mmol/L Chloride 97 L (98-107) mmol/L Carbon Dioxide 22 (22-32) mmol/L BUN 71 H (7-17) mg/dL Creatinine 1.42 H (0.52-1.04) mg/dL Estimated GFR 37 L (>60) mL/min BUN/Creatinine Ratio 50.0 H (6-22) Glucose 87 (80-110) mg/dL Lactate 3.5 H (0.7-2.1) mmol/L Calcium 9.5 (8.4-10.2) mg/dL Total Bilirubin 0.9 (0.2-1.3) mg/dL AST 48 H (14-36) IU/L ALT 48 H (<35) IU/L Alkaline Phosphatase 55 (38-126) U/L Total Protein 7.2 (6.3-8.2) g/dL Albumin 4.4 (3.5-5.0) g/dL Globulin 2.8 (1.7-4.1) g/dL Albumin/Globulin Ratio 1.6 (1.0-2.8) Lipase 121 (23-300) U/L Urine Color Yellow Urine Appearance Sl cloudy Urine pH 5.5 (4.5-8.0) Ur Specific [place] 1.020 (1.000-1.035) Urine Protein Negative (Negative) Urine Glucose (UA) Negative (Negative) g/dL Urine Ketones Negative (NEGATIVE) Urine Occult Blood 1+ H (Negative) Urine Nitrate Positive H (Negative) Urine Bilirubin Negative (NEGATIVE) Urine Urobilinogen 0.2 (0.2) E.U./dL Ur Leukocyte Esterase Trace H (NEGATIVE) Urine RBC 1-5/hpf (0-5/HPF) Urine WBC 1-5/hpf (0-5/HPF) Ur Squamous Epith Cells 0-1 /hpf (0-5/HPF) Amorphous Sediment 2+ Urine Bacteria Moderate (10-30) H (None) Urine Yeast 10-30/hpf H (None) Ur Culture Indicated? Specimen cultured Vol Urine Centrifuged 10ml (spun) Urine Dip Bedside Urine Glucose Negative Bedside Urine Bilirubin - Negative Bedside Urine Ketone - Negative Urine Specific [place] 1.020 Bedside Urine Occult Blood + Bedside Urine pH 6.0 Bedside Urine Protein +/- 15 Bedside Urine Urobilinogen - Negative Bedside Urine Nitrite - Negative Bedside Urine Leukocytes +/- 15 Esterase Point of care testing: Urine Dip Bedside Urine Glucose Negative Bedside Urine Bilirubin - Negative Bedside Urine Ketone - Negative Urine Specific [place] 1.020 Bedside Urine Occult Blood + Bedside Urine pH 6.0 Bedside Urine Protein +/- 15 Bedside Urine Urobilinogen - Negative Bedside Urine Nitrite - Negative Bedside Urine Leukocytes +/- [address] scan - abdomen/pelvis: Radiologist's Impression: PROCEDURE: CT ABDOMEN PELVIS W CON INDICATIONS: concern for incarcerated hernia, hx of sx 1990s TECHNIQUE: After the administration of intravenous contrast, axial sections acquired from the lung bases to the pubic symphysis. Coronal and sagittal reformats were performed. For radiation dose reduction, the following was used: automated exposure control, adjustment of mA and/or kV according to patient size. COMPARISON: [facility], CT, CT ABDOMEN PELVIS W CON, 06/18/2019, 12:07. FINDINGS: Image quality: Diagnostic. Lower Chest: No significant findings. ABDOMEN: Liver: Moderate hepatic steatosis. Mild hepatomegaly. No discrete mass. Gallbladder: Surgically absent. Biliary ducts: Appropriate biliary tree caliber post cholecystectomy. Pancreas: Scattered pancreatic calcifications. No ductal dilatation. Spleen: Size is within normal limits. Adrenal Glands: No adrenal nodules. Kidneys and Ureters: Mild bilateral cortical thinning. Nonobstructing right lower pole intrarenal calcification. No hydronephrosis or perinephric inflammation. No hydroureter. Stomach and Bowel: Normal stomach. Small bowel loops are decompressed. No obstruction. Normal appendix. Moderate sigmoid diverticulosis. No acute inflammation. Peritoneum: No abnormal intraperitoneal fluid. No free air. Ventral Wall: There is a wide necked lower abdominal midline small bowel containing hernia. No inflammation or fluid in the hernia sac. There are also a few wide necked fat containing supraumbilical hernias also in the midline. No inflammatory changes. Abdominal Nodes: No retroperitoneal or mesenteric adenopathy by size criteria. Vessels: Aorta and inferior vena cava are normal in size. Mild abdominal aortic atherosclerotic calcification. PELVIS: Pelvic Organs: Hysterectomy Bladder: Morrow catheter decompressing the urinary bladder. Pelvic Nodes: No enlarged lymph nodes. Miscellaneous: No inguinal hernias are seen. Bones: No aggressive osseous abnormality. IMPRESSION: No evidence of incarcerated hernia. There is a nonobstructing bowel containing infraumbilical midline hernia with a wide neck. Moderate hepatic steatosis. Dictated by: Judie Vargas M.D. on 10/10/2023 at 18:35 MDM Narrative Medical decision making narrative: CC: 2 days of increasing lower abdominal pain sent in by General surgery with concerns for incarcerated hernia/abscess Complicating co-morbidities: BMI of 37, hypertension hyperlipidemia, diabetes Data collected from: patient Medical records reviewed: Surgical outpatient note from earlier today is reviewed Recent ER note with acute urinary retention and Morrow catheter placement from last month reviewed [facility] notes reviewed, on 08/14/2023 she had IVIG, pulse dexamethasone in May of 2020, and 4 days of 40 mg dexamethasone pulse in July of 2023 with platelets increasing appropriately. With no treatments required since then. Began having vaginal bleeding in June of 2023, was seen by Gynecology 08/22/23 notes not available but the day after that patient states she was unable to void and Morrow catheter was required and has been in place since. She is currently on Keflex and fluconazole Differential considered: Incarcerated hernia, pain secondary to cystocele or rectocele, infection, sepsis Exam documented above, pertinent findings include: 83-year-old woman who appears quite uncomfortable. She has diffuse lower abdominal pain without obvious rebound or guarding. Pelvic exam is not possible due to pain. Morrow catheter remains in place. She does not have flank pain. She is tachycardic, relatively hypotensive pale and appears acutely ill. Lab Test results independently reviewed as above. Pertinent findings: CBC is 15.9 without significant left shift. Platelets today are appropriate at 193. Chemistries are notable for acute kidney injury with bump in creatinine from 1- 1.42. Elevated AST and ALT at 48 and 48, Lipase is normal Urine culture from September 24 shows stenotrophomonas maltophilia with resistance to ceftazidime, sensitive to levofloxacin, minocycline and sulfa, patient is allergic to sulfa. Urinalysis from today from a catheterized sample shows nitrites leukocyte esterase moderate bacteria and still is also showing urine yeast. Independently reviewed EKG: Patient has a significantly abnormal EKG however underlying rhythm is sinus tachycardia with frequent PACs. No obvious ischemia. Imaging studies independently reviewed: CT abd: There is a wide necked lower abdominal midline small bowel containing hernia. No inflammation or fluid in the hernia sac. There are also a few wide necked fat containing supraumbilical hernias also in the midline. No inflammatory changes. No specific mention of kidney abnormalities or significant pelvic pathology or thickened bladder wall Consultations: Care is discussed with Dr. Newby. Given that this is clearly not an incarcerated abdominal hernia will not need emergency surgical consultation this evening. Patient will be admitted to the hospitalist service for presumed sepsis from a urinary source as a cause for her pain with surgical consultation morning. Care is reviewed with infectious disease specialist at [facility] regarding antibiotic coverage. His recommendation is double coverage with levofloxacin and meropenem which will be initiated. We will also go ahead and add IV fluconazole given the yeast that is seems to be worsening despite oral fluconazole. This may well simply be contaminant and related to her Morrow catheter and can be changed by hospitalist after their review Treatments: Fluids, antibiotics Re-evaluations: Morrow catheter will be replaced with appropriate pain management prior to that Discussion: 83-year-old woman with lower abdominal pain history of ITP. Began having vaginal bleeding couple of months ago. Was eventually seen by Gynecology, Dr. Kaiser in [place] on August 21 (attempting to get those records) with symptoms worsening and acute urinary retention has had a Morrow catheter since then. Urine has grown out stenotrophomonas maltophilia as well as yeast. I am concerned that she is developing sepsis with elevated heart rate and low blood pressure. She does not seem to have an acute surgical abdomen but is somewhat tender. 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 With Morrow catheter in and the bladder completely decompress that may be why there was no CT evidence of acute urinary tract infection. Certainly no evidence of pyelonephritis. Lactic acid comes back elevated, she is responding nicely to fluid blood pressure coming up and heart rate still irregular still sinus rhythm but still tachycardic. Care is reviewed with the hospitalist service and patient will be admitted. Discharge Plan Departure Patient Disposition: Admitted As Inpatient Clinical Impression: Abdominal pain, lower, Acute kidney injury, Hernia of anterior abdominal wall with obstruction and gangrene Catheter-associated urinary tract infection Qualifiers: Indwelling urinary catheter type: indwelling urethral catheter Encounter type: subsequent encounter Qualified Code(s): T83.511D - Infection and inflammatory reaction due to indwelling urethral catheter, subsequent encounter Sepsis Qualifiers: Sepsis type: sepsis due to unspecified organism Sepsis acute organ dysfunction status: with acute organ dysfunction Severe sepsis acute organ dysfunction type: acute renal failure Acute renal failure type: unspecified Severe sepsis shock status: without septic shock Qualified Code(s): A41.9 - Sepsis, unspecified organism
[2023-10-10 19:57] LABS: Lactate (Lactic Acid) 3.5 mmol/L (0.7-2.1)
[2023-10-10] MEDS: SODIUM CHLORIDE 0.9% 1,000 ML 1000 ML IV ×2 (20:31→22:32)
[2023-10-10] MEDS: MEROPENEM 500 MG in SODIUM CHLORIDE 0.9% 100 ML 200 MG IV (20:32)
[2023-10-10] MEDS: HYDROMORPHONE 0.5 MG INJ IV (20:33)
--- NOTE | 2023-10-10 20:51 | PC.NURSE ---
Brady removed. New brady placed per provider order. 16 scottish brady placed without difficulty.
[2023-10-10 21:18] LABS: Reflexed Lactate in 2 Hours Y
[2023-10-10] MEDS: levoFLOXacin 500 MG/100 ML PIGGYBACK 100 MG IV (21:29)
[2023-10-10 22:11] LABS: Lactate 2HR (Lactic Acid Rflx) 3.6 mmol/L (0.7-2.1)
[2023-10-10 22:51] LABS: Magnesium 1.7 mg/dL (1.6-2.3)
--- NOTE | 2023-10-10 23:19 | PC.NURSE ---
Pt. admitted to room 219 by angie AKINS. Oriented to her room, denies any fall at home. Ambulated to the BR, denies any pain after receiving Dilaudid in ER. Will continue plan of care & monitor,
[2023-10-10] MEDS: SODIUM CHLORIDE 0.9% 1,000 ML 100 ML IV (23:42)
[2023-10-11] VITALS (9 sets, daily range): BP systolic 107–126; BP diastolic 47–60; PULSE 68–95; RESP 14–19; TEMP 35.7–36.5; O2SAT 96–100
--- NOTE | 2023-10-11 00:13 | P.HP_ITS ---
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 Montgomery States she was referred to a mold yarn supervisor for vaginal bleeding that started around 8 months ago, underwent a procedure with ultrasound that lasted 2 hours and then the next day had urinary retention requiring brady. Has been taking antibiotics for UTI since then and brady has been removed but then replaced for continued difficulty urinating. Prior to the brady she would get up at night every 2 hours to use the restroom, used to work nights so does not sleep well at night. Today she had severe abdominal pain, sharp over her abdominal hernia. Went to Urology appt, given the abdominal pain appt canceled and sent forward to her scheduled surgical appt. Seen by Dr. Montgomery who sent her to the ED for further work up. Denies fever, chills, night sweats, chest pain, palpitations, SOB, diarrhea/constipation. ER visit 08/21/23 gross hematuria with urinary retention requiring brady catheter, started on Cephalexin. ER visit 09/11 after brady catheter was discontinued with urinary retention, brady catheter was replaced with plan for Urology follow up. Urology folow up 09/24, recommendation for continuation of cephalexin, fluconazole for acute cystitis. Plan return for cystoscopy with PVR. Septic, fluid responsive. ER workup with CT without evidence of hernia complications. ED discussed case with ID, plan for Meropenem, Levaquin treatment of catheter associated UTI. Urine Culture Final 09/02/23- 9543 Organism 1 Pantoea spp [place] Count >100,000 CFU/ml Action to follow Further Workup Upon Request Organism 2 Taryn glabrata [place] Count 70,000 - 80,000 CFU/ml Action to follow Isolate sent [facility] for [facility]/Confirmation Urine Culture Final 10/04/23- 08 Organism 1 Stenotrophomonas maltophilia [place] Count >100,000 CFU/ml Action to follow Sent to [facility] for Workup Urology Dr. Hernadnez 09/25/23 comes to Urology Clinic as a new patient with complaint of recurring urinary tract infections. Patient ties this to an episode occurring about 8-9 months ago where she had some blood with her void. She saw her mold yarn supervisor and was referred to a Dr. Glen Kaiser the patient reports a very uncomfortable and painful exam lasting approximately 2 hours were gets an attempted ultrasound was done in multiple other maneuvers. 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 And that was the cause of the bleeding which started 8-9 months ago then was gone and then recurred a month and a half later. In any regard this appointment was on August 19 and she received a call to have an ultrasound done in [place] this supports a little bit hazy but on the could not void and was seen in the emergency department had a catheter placed. She then saw her primary care provider on 10 September had her catheter removed and again was unable to void and presented to the emergency room on the were the catheter that she has not place was placed. He has not had anything like this before. It is very desirous of having the catheter removed. She did have in 1989 some abdominal pain and had the above mentioned hysterectomy with bilateral salpingo oophorectomy removing was described as a very large ovarian cyst according to the patient she was told that way 12-1/2 lb. She currently wears a depends does have a ventral hernia. Prior to this patient did not have urinary tract infections had no gross hematuria other than previously mentioned, no stones, no tobacco and no secondhand smoke exposure. Her catheter is clamped and a urine sample is obtained today patient is on an antibiotic and antifungal and we will see what grows from today sample. [facility] Medical History (Updated 10/10/23 @ 20:37 by Yudith Reina MD) Gross hematuria Arthritis Psoriasis COVID-19 virus infection (09/09/21) Acute idiopathic thrombocytopenic purpura Chest pain Diabetes Hyperlipidemia Hypertension Cystocele with rectocele Surgical History (Updated 09/25/23 @ 11:59 by Jonathan Hernandez MD) Hx of cholecystectomy History of knee replacement (2011) Status post ovarian cystectomy (1989) Family History Sister Cancer Sister Cancer Mother Diabetes mellitus Other Hypertension UTI (urinary tract infection) Social History marital status: number of children: 3 household members: none Smoking Status: Never smoker alcohol intake: current caffeine: Yes Type(s) of exercise: walking Meds Home Medications and Allergies Home Medications Medication Instructions Recorded Confirmed Type atorvastatin 20 mg tablet (Lipitor) 20 mg PO DAILY ##0 11/25/10 10/10/23 History glimepiride 4 mg tablet (Amaryl) 8 mg PO DAILY ##0 11/25/10 10/10/23 History acetaminophen 300 mg-codeine 30 mg 1 tab PO TID ##0 11/27/16 10/10/23 History tablet losartan 100 mg tablet 100 mg PO DAILY ##0 11/27/16 10/10/23 History triamterene 37.5 1 tab PO DAILY ##0 11/27/16 10/10/23 History mg-hydrochlorothiazide 25 mg tablet fexofenadine 180 mg tablet 180 mg PO DAILY 05/20/19 10/10/23 History (Allergy Relief (fexofenadine)) ferrous sulfate 325 mg (65 mg 325 mg PO DAILY 05/20/20 10/10/23 History iron) tablet empagliflozin 10 mg tablet 10 mg PO DAILY 10/18/20 10/10/23 History (Jardiance) catheter 14 Fr (Self-Catheter, #90 ea 07/12/21 10/10/23 Rx Female) metformin 1,000 mg tablet 1,000 mg PO BID 11/02/21 10/10/23 History dexamethasone 20 mg tablet 20 mg PO DAILY #3 tabs 06/27/23 10/10/23 Rx fluconazole 200 mg tablet 200 mg PO DAILY #2 tabs 08/22/23 10/10/23 Rx (Diflucan) carboxymethylcellulose sodium 0.25 1 drp ophthalmic (eye) DAILY 09/25/23 10/10/23 History % eye drops (TheraTears) cyanocobalamin (vitamin B-12) 1,000 mcg SUBCUT QMONTH 09/25/23 10/10/23 History 1,000 mcg/mL injection kit cyclosporine 0.05 % eye drops 1 drp ophthalmic (eye) Q12H 09/25/23 10/10/23 History dulaglutide 0.75 mg/0.5 mL 0.75 mg SUBCUT QWEEK 09/25/23 10/10/23 History subcutaneous pen injector (Trulicity) fenofibrate nanocrystallized 48 mg 48 mg PO DAILY 09/25/23 10/10/23 History tablet levofloxacin 750 mg tablet 750 mg PO DAILY #10 tabs 10/03/23 10/10/23 Rx minocycline 100 mg capsule 200 mg (2 x 100 mg) PO Q12H #40 10/03/23 10/10/23 Rx caps Allergies Allergy/AdvReac Type Severity Reaction Status Date / Time Sulfa (Sulfonamide Allergy Severe ITCHING Verified 10/10/23 15:06 Antibiotics) [SULFA (SULFONAMIDE ANTIBIOTICS)] Review of Systems Review of Systems ROS: Yes All systems reviewed with the patient and are negative except as otherwise documented Exam Vital Signs (past 8 hours): - 10/10/23 16:15 10/10/23 17:37 10/10/23 17:39 Temperature 97.7 F Pulse Rate 108 H 116 H Respiratory Rate 18 Blood Pressure 96/51 L 125/61 Pulse Oximetry 99 96 Oxygen Delivery Method Room Air Room Air Oxygen Flow Rate 10/10/23 17:39 10/10/23 18:00 10/10/23 18:01 Temperature Pulse Rate 114 H 112 H Respiratory Rate 19 16 Blood Pressure 93/53 L Pulse Oximetry 98 97 Oxygen Delivery Method Oxygen Flow Rate 10/10/23 18:01 10/10/23 18:30 10/10/23 18:30 Temperature Pulse Rate 98 H 95 H Respiratory Rate 16 18 Blood Pressure 103/60 Pulse Oximetry 98 97 Oxygen Delivery Method Oxygen Flow Rate 10/10/23 19:00 10/10/23 19:00 10/10/23 19:30 Temperature Pulse Rate 113 H 113 H Respiratory Rate 16 19 Blood Pressure 101/53 L Pulse Oximetry 95 97 Oxygen Delivery Method Oxygen Flow Rate 10/10/23 20:00 10/10/23 20:30 10/10/23 20:36 Temperature Pulse Rate 116 H 118 H Respiratory Rate 15 19 Blood Pressure 102/56 L Pulse Oximetry 94 97 Oxygen Delivery Method Room Air Oxygen Flow Rate 10/10/23 20:36 10/10/23 21:00 10/10/23 21:00 Temperature Pulse Rate 116 H 107 H Respiratory Rate 20 19 Blood Pressure 120/70 Pulse Oximetry 97 97 Oxygen Delivery Method Oxygen Flow Rate 10/10/23 21:30 10/10/23 21:30 10/10/23 22:00 Temperature Pulse Rate 95 H Respiratory Rate 16 Blood Pressure 116/57 L 121/57 L Pulse Oximetry 99 Oxygen Delivery Method Oxygen Flow Rate 10/10/23 22:00 10/10/23 22:37 Temperature 96.2 F L Pulse Rate 110 H 114 H Respiratory Rate 17 20 Blood Pressure 118/53 L Pulse Oximetry 97 98 Oxygen Delivery Method Oxygen Flow Rate 0 Oxygen Delivery Method Room Air Oxygen Flow Rate 0 Narrative Exam Narrative: GEN: NAD, brady in place HEENT: moist mucous membranes, PERRLA NECK: trachea midline, no JVD CV: regular rate and rhythm, no murmurs PULM: clear bilaterally without crackles, wheeze ABD: soft per nursing palpation, obese, nondistended, mild +TTP ventral hernia EXT: warm and well perfused with 2+ pitting edema NEURO: awake, alert, oriented, no focal deficits Objective Imaging CT scan - abdomen: My impression: Images reviewed, agree with radiologist Radiologist's impression: COMPARISON: [facility], CT, CT ABDOMEN PELVIS W CON, 06/18/2019, 12:07. FINDINGS: Image quality: Diagnostic. Lower Chest: No significant findings. ABDOMEN: Liver: Moderate hepatic steatosis. Mild hepatomegaly. No discrete mass. Gallbladder: Surgically absent. Biliary ducts: Appropriate biliary tree caliber post cholecystectomy. Pancreas: Scattered pancreatic calcifications. No ductal dilatation. Spleen: Size is within normal limits. Adrenal Glands: No adrenal nodules. Kidneys and Ureters: Mild bilateral cortical thinning. Nonobstructing right lower pole intrarenal calcification. No hydronephrosis or perinephric inflammation. No hydroureter. Stomach and Bowel: Normal stomach. Small bowel loops are decompressed. No obstruction. Normal appendix. Moderate sigmoid diverticulosis. No acute inflammation. Peritoneum: No abnormal intraperitoneal fluid. No free air. Ventral Wall: There is a wide necked lower abdominal midline small bowel containing hernia. No inflammation or fluid in the hernia sac. There are also a few wide necked fat containing supraumbilical hernias also in the midline. No inflammatory changes. Abdominal Nodes: No retroperitoneal or mesenteric adenopathy by size criteria. Vessels: Aorta and inferior vena cava are normal in size. Mild abdominal aortic atherosclerotic calcification. PELVIS: Pelvic Organs: Hysterectomy Bladder: Brady catheter decompressing the urinary bladder. Pelvic Nodes: No enlarged lymph nodes. Miscellaneous: No inguinal hernias are seen. Bones: No aggressive osseous abnormality. IMPRESSION: No evidence of incarcerated hernia. There is a nonobstructing bowel containing infraumbilical midline hernia with a wide neck. Moderate hepatic steatosis. Dictated by: Judie Vargas M.D. on 10/10/2023 at 18:35 Approved by: Judie Vargas M.D. on 10/10/2023 at 18:40 Labs 10/10/23 16:35 10/10/23 16:35 Labs: Laboratory Results - last 24 hr 10/10/23 10/10/23 10/10/23 16:35 17:41 19:35 WBC 15.9 H RBC 5.19 Hgb 15.3 Hct 46.7 H MCV 89.8 MCH 29.5 MCHC 32.9 RDW 15.3 H Plt Count 193 Neut % (Auto) 72.7 Lymph % (Auto) 21.5 L [place] % (Auto) 4.0 Eos % (Auto) 0.8 L Baso % (Auto) 1.0 Neut # (Auto) 77569 H Lymph # (Auto) 3400 [place] # (Auto) 600 Eos # (Auto) 100 Baso # (Auto) 200 H Sodium 133 L Potassium 4.6 Chloride 97 L Carbon Dioxide 22 BUN 71 H Creatinine 1.42 H Estimated GFR 37 L BUN/Creatinine Ratio 50.0 H Glucose 87 Lactate 3.5 H Calcium 9.5 Magnesium 1.7 Total Bilirubin 0.9 AST 48 H ALT 48 H Alkaline Phosphatase 55 Total Protein 7.2 Albumin 4.4 Globulin 2.8 Albumin/Globulin Ratio 1.6 Lipase 121 Urine Color Yellow Urine Appearance Sl cloudy Urine pH 5.5 Ur Specific [place] 1.020 Urine Protein Negative Urine Glucose (UA) Negative Urine Ketones Negative Urine Occult Blood 1+ H Urine Nitrate Positive H Urine Bilirubin Negative Urine Urobilinogen 0.2 Ur Leukocyte Esterase Trace H Urine RBC 1-5/hpf Urine WBC 1-5/hpf Ur Squamous Epith Cells 0-1 /hpf Amorphous Sediment 2+ Urine Bacteria Moderate (10-30) H Urine Yeast 10-30/hpf H Ur Culture Indicated? Specimen cultured Vol Urine Centrifuged 10ml (spun) 10/10/23 10/10/23 21:54 23:24 WBC RBC Hgb Hct MCV MCH MCHC RDW Plt Count Neut % (Auto) Lymph % (Auto) [place] % (Auto) Eos % (Auto) Baso % (Auto) Neut # (Auto) Lymph # (Auto) [place] # (Auto) Eos # (Auto) Baso # (Auto) Sodium Potassium Chloride Carbon Dioxide BUN Creatinine Estimated GFR BUN/Creatinine Ratio Glucose Lactate 3.6 H 3.0 H Calcium Magnesium Total Bilirubin AST ALT Alkaline Phosphatase Total Protein Albumin Globulin Albumin/Globulin Ratio Lipase Urine Color Urine Appearance Urine pH Ur Specific [place] Urine Protein Urine Glucose (UA) Urine Ketones Urine Occult Blood Urine Nitrate Urine Bilirubin Urine Urobilinogen Ur Leukocyte Esterase Urine RBC Urine WBC Ur Squamous Epith Cells Amorphous Sediment Urine Bacteria Urine Yeast Ur Culture Indicated? Vol Urine Centrifuged Assessment & Plan Assessment and plan (1) Sepsis: Qualifiers: Acute renal failure type: unspecified Sepsis acute organ dysfunction status: with acute organ dysfunction Sepsis type: sepsis due to unspecified organism Severe sepsis acute organ dysfunction type: acute renal failure S evere sepsis shock status: without septic shock Qualified Code(s): A41.9 - Sepsis, unspecified organism; R65.20 - Severe sepsis without septic shock; N17.9 - Acute kidney failure, unspecified Status: Acute (2) Acute kidney injury: Status: Acute (3) Catheter-associated urinary tract infection: Qualifiers: Encounter type: subsequent encounter Indwelling urinary catheter type: indwelling urethral catheter Qualified Code(s): T83.511D - Infection and inflammatory reaction due to indwelling urethral catheter, subsequent encounter; N39.0 - Urinary tract infection, site not specified Status: Acute (4) Acute abdominal pain: Status: Acute (5) Urinary retention: Status: Acute Plan - CT - Ventral Wall: There is a wide necked lower abdominal midline small bowel containing hernia. No inflammation or fluid in the hernia sac. There are also a few wide necked fat containing supraumbilical hernias also in the midline. No inflammatory changes. Decompressed bladder with brady. - Sepsis: WBC 15.9, HR 126 EKG sinus tachycardia with PAC/PVC per charting improved to 80's, LA 3.5, BP 96/56 improved with 2L NS bolus - UA +N, LE, 1+ blood - Lipase 121, nonsurgical abdominal exam - AST/ALT 48/48 - Cr 1.42 BUN 71 from baseline 1-1.1 - ED discussed with ID, continue antibx with Meropenem renal dosed, Levaquin - await BCx, follow up Lactate - Surgery Dr. Montgmoery following Assessment & Plan narrative: CT - Moderate hepatic steatosis. Mild hepatomegaly. - Nonobstructing right lower pole intrarenal calcification. - Moderate sigmoid diverticulosis Chronic conditions HTN, hold home antihypertensives 2/2 above HLD, hold home statin due to elevated transaminase Chronic mild hyponatremia Morbid obesity BMI 41, complicates all aspects of medical care Quality VTE Deep Vein Thrombosis/Pulmonary Embolism Present on Admission: No
--- NOTE | 2023-10-11 00:20 | PC.NURSE ---
Placed her money in the hospital safe.
--- NOTE | 2023-10-11 00:35 | PC.NURSE ---
Checked blood glucose 58, pt. is awake given apple & cranberry juice, kayce crackers, cheese & chocolate Ensure. Refused milk will monitor.
[2023-10-11 01:05] LABS: Reflexed Lactate in 2 Hours Y
[2023-10-11 03:05] LABS: Add Manual Diff / Slide Review NO; Basophils Absolute Auto 100 /uL (0-100); Basophils Percent Auto 0.8 % (0-2); Eosinophils Absolute Auto 100 /uL (0-450); Eosinophils Percent Auto 1.5 % (2-4); Hematocrit 40.6 % (36-46); Hemoglobin 13.4 g/dL (12.0-16.0); Lymphocytes Absolute Auto 2500 /uL (1100-4500); Lymphocytes Percent Auto 26.4 % (25-40); Mean Corpuscular HGB Conc 32.9 % (30-36); Mean Corpuscular Hemoglobin 29.4 PG (26-34); Mean Corpuscular Volume 89.4 fL (80-100); Monocytes Absolute Auto 500 /uL (0-900); Monocytes Percent Auto 5.7 % (3-14); Neutrophils Absolute Auto 6300 /uL (1500-7000); Neutrophils Percent Auto 65.6 % (50-75); Platelet Count 148 X10^3/uL (150-400); Red Blood Cell Count 4.54 X10^6/uL (4.0-5.2); Red Cell Distribution Width 15.4 % (11.6-14.8); White Blood Cell Count 9.7 X10^3/uL (4.5-11.0)
[2023-10-11 03:12] LABS: Lactate 2HR (Lactic Acid Rflx) 3.5 mmol/L (0.7-2.1)
[2023-10-11 03:13] LABS: Alanine Aminotransferase 36 IU/L (<35); Albumin 3.4 g/dL (3.5-5.0); Albumin Globulin Ratio 1.5 (1.0-2.8); Alkaline Phosphatase 58 U/L (38-126); Aspartate Aminotransferase 30 IU/L (14-36); BUN Creatinine Ratio 47.9 (6-22); Bilirubin Total 0.6 mg/dL (0.2-1.3); Blood Urea Nitrogen 58 mg/dL (7-17); Calcium 8.4 mg/dL (8.4-10.2); Carbon Dioxide 21 mmol/L (22-32); Chloride 103 mmol/L (98-107); Estimated Glomerular Filt Rate 45 mL/min (>60); Globulin 2.2 g/dL (1.7-4.1); Glucose 149 mg/dL (80-110); HEMOLYSIS < 15 (0-50); Potassium 3.5 mmol/L (3.4-5.1); Sodium 133 mmol/L (137-145); Total Protein 5.6 g/dL (6.3-8.2)
[2023-10-11 03:18] LABS: Hemoglobin A1C% w Est Avg Glu 7.3 % (4.0-6.0)
[2023-10-11] MEDS: SODIUM CHLORIDE 0.9% 1,000 ML 1000 ML IV (04:19)
[2023-10-11] MEDS: HYDROMORPHONE 0.5 MG INJ IV ×2 (05:29→19:59)
[2023-10-11 07:31] LABS: Lactate (Lactic Acid) 2.1 mmol/L (0.7-2.1)
[2023-10-11 08:50] LABS: Reflexed Lactate in 2 Hours Y
[2023-10-11] MEDS: ACETAMINOPHEN 325 MG TABLET 650 MG PO (09:04)
[2023-10-11] MEDS: HEPARIN 5,000 UNIT/ML VIAL 5000 UNIT SUBCUT ×2 (09:05→20:08)
[2023-10-11] MEDS: DOCUSATE 100 MG CAPSULE PO (09:06)
[2023-10-11] MEDS: SODIUM CHLORIDE 0.9% FLUSH 10 ML IV (09:06)
[2023-10-11] MEDS: MEROPENEM 500 MG in SODIUM CHLORIDE 0.9% 100 ML 200 MG IV (09:06)
[2023-10-11 09:27] LABS: Lactate 2HR (Lactic Acid Rflx) 2.2 mmol/L (0.7-2.1)
--- NOTE | 2023-10-11 11:23 | PM.CALLCOV.1 ---
Call Coverage Note Note Date of Patient Contact: 10/11/23 Time of Patient Contact: 11:23 Narrative of Care Provided: No plans during this hospitalization for ventral hernia repair. Labs and imaging reviewed no findings of bowel obstruction secondary to hernia. Can follow up as outpatient to discuss further.
[2023-10-11] MEDS: SODIUM CHLORIDE 0.9% 1,000 ML 100 ML IV (12:51)
[2023-10-11] MEDS: MAGNESIUM CHLORIDE 64 MG TABLET 128 MG PO (12:52)
[2023-10-11] MEDS: POTASSIUM CHLORIDE 20 MEQ TAB PO (12:52)
[2023-10-11] MEDS: INSULIN LISPRO 100 UNIT/ML 3ML VIAL SUBCUT (12:54)
--- NOTE | 2023-10-11 14:51 | PC.NURSE ---
Patient has a brady catheter that is putting out yellow urine, she is getting around well with ambulation. Given tylenol earlier for discomfort. Daughter came into see patient and visited for a while, brought patients home eye drops. She is resting in bed now. Patient had a large incontinence of diarrhea and more on the bsc. She has been cleaned up. Blood Sugar high at 197, insulin given. She is resting now.
--- NOTE | 2023-10-11 15:57 | CM.DANOTE ---
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 Discharge anticipated Sunday10.13.23. Original Note: Initial DCP Assessment Note Pt is a 83 yo female, resident at [facility] in [place], admitted for management of known UTI PCP: Norma Muñoz Payer: Andrea BANUELOS/KRISTINE Reviewed chart, met w/patient to introduce self and role. Patient lives at [facility] in an indp studio, daughter pays her rent. Patient lives in social security. Patient reports being indp in all aspects with 4WW, does not drive. Patient has been receiving wound care since developing a pressure sore on her backside, from both the wound care clinic and from [facility] nursing. Patient would like to resume these services upon discharge. ASHLY Pace, kindly agreed to contact [facility] to update that patient admitted and would like to resume services upon discharge. Bonny at [facility] explained patient will need new HH order and new F2F if patient is INPT and stays more than 24 hours. This SKIN SPECIALIST will plan to complete. Plan: Discharge home to [facility] with daughter to transport is anticipated. [facility] RN visits approx 2-3x weekly for wound care for sacral ulcer. CM team will plan to follow clinical course closely, working on coordination. ADELIA Da Silva Discharge Planning/Care Management CM Discharge Assessment Start: 10/11/23 15:54 Freq: Status: Active Protocol: Document 10/11/23 15:54 MARRY (Rec: 10/11/23 15:57 MARRY [id number]) Discharge Planning Assessment Assigned Automobile Wrecker ADELIA Higgins DPOA/Assigned Designee Name delano Lazaro Contact Information [phone] Advance Directives? Yes Advance Directives on File No History Provided By Patient,Medical Record Prior Living Arrangements Half-Way Facility Household Members none Type of transporation used prior to Relies on Others admit Facility Name Admitted From: [facility] [address] Willing to Return to Facility? Yes Independent with ADL's Yes Is patient alert and oriented? Yes Needs Assistance With Meal Prep,Home Chores / Shopping Patient/Family Preference Home with Home Health Barriers to Discharge No Discharge Plan Home with Home Health Community Services Home Health Nurse Transportation Arrangement Family Referrals Initiated Home Health Additional Comment [facility] will need new F2F and new HH order if patient is INPT and is admitted longer than 24 hours
--- NOTE | 2023-10-11 17:13 | P.PN_ITS ---
Subjective Subjective Date Patient Seen: 10/11/23 Time Patient Seen: 17:13 Interval history: Reviewed note from hospitalist and ER. Patient currently has indwelling catheter for urinary retention and presented to the ER feeling poorly. She was noted to have UTI with sepsis. Patient had leukocytosis and elevated lactate and hypotension as well as tachycardia. Patient has had recurrent UTIs. She has been followed by Urology. Blood cultures and urine cultures are pending. She was placed on Levaquin and meropenem based on the recommendations of Infectious Disease. There was concern and she was originally sent from surgery due to concern for incarcerated infraumbilical hernia. CT scan was done which shows no evidence of this. General surgery consulted. They feel that the hernia can be treated as an outpatient. Patient has not had her regular Tylenol with codeine. She takes 2 tablets 3 times a day his taken this for years for her chronic arthritis pain. She is complaining of severe pain in her abdomen on a scale of 1-10 she ranks it out of 15. However she is resting in the chair in no apparent distress and has stable vital signs including no tachycardia, no hypertension or hypotension and O2 sats are normal on room air. Patient had large explosive bowel movement today after being given a stool softener. Patient denies any shortness a breath or chest pain or palpitations Twelve point review of systems is otherwise negative Exam Vital Signs (past 8 hours): - 10/11/23 10:00 10/11/23 12:00 10/11/23 14:00 Temperature 96.6 F L Pulse Rate 87 Respiratory Rate 17 Blood Pressure 108/60 Pulse Oximetry 99 Oxygen Delivery Method Room Air Room Air Oxygen Flow Rate 0 10/11/23 16:00 Temperature 97.7 F Pulse Rate 84 Respiratory Rate 15 Blood Pressure 116/52 L Pulse Oximetry 98 Oxygen Delivery Method Oxygen Flow Rate 0 Oxygen Delivery Method Room Air Oxygen Flow Rate 0 Narrative Exam Narrative: Alert and oriented x3 HEENT is unremarkable Neck: Supple without adenopathy Chest: Clear to auscultation without wheezes rhonchi or crackles Cor: Regular rate and rhythm with distant S1-S2 Abdomen: Positive bowel sounds x4, obese. Diffusely she has tenderness but no guarding or rebound and no peritoneal signs. Difficulty palpating infraumbilical hernia. Extremities show no significant edema Neurologic exam is nonfocal Objective Labs 10/11/23 02:54 10/11/23 02:54 Labs: Laboratory Results - last 24 hr 10/10/23 10/10/23 10/10/23 17:41 19:35 21:54 WBC RBC Hgb Hct MCV MCH MCHC RDW Plt Count Neut % (Auto) Lymph % (Auto) [place] % (Auto) Eos % (Auto) Baso % (Auto) Neut # (Auto) Lymph # (Auto) [place] # (Auto) Eos # (Auto) Baso # (Auto) Sodium Potassium Chloride Carbon Dioxide BUN Creatinine Estimated GFR BUN/Creatinine Ratio Glucose Hemoglobin A1c Lactate 3.5 H 3.6 H Calcium Magnesium 1.7 Total Bilirubin AST ALT Alkaline Phosphatase Total Protein Albumin Globulin Albumin/Globulin Ratio Urine Color Yellow Urine Appearance Sl cloudy Urine pH 5.5 Ur Specific [place] 1.020 Urine Protein Negative Urine Glucose (UA) Negative Urine Ketones Negative Urine Occult Blood 1+ H Urine Nitrate Positive H Urine Bilirubin Negative Urine Urobilinogen 0.2 Ur Leukocyte Esterase Trace H Urine RBC 1-5/hpf Urine WBC 1-5/hpf Ur Squamous Epith Cells 0-1 /hpf Amorphous Sediment 2+ Urine Bacteria Moderate (10-30) H Urine Yeast 10-30/hpf H Ur Culture Indicated? Specimen cultured Vol Urine Centrifuged 10ml (spun) 10/10/23 10/11/23 10/11/23 23:24 02:54 07:06 WBC 9.7 RBC 4.54 Hgb 13.4 Hct 40.6 MCV 89.4 MCH 29.4 MCHC 32.9 RDW 15.4 H Plt Count 148 L Neut % (Auto) 65.6 Lymph % (Auto) 26.4 [place] % (Auto) 5.7 Eos % (Auto) 1.5 L Baso % (Auto) 0.8 Neut # (Auto) 6300 Lymph # (Auto) 2500 [place] # (Auto) 500 Eos # (Auto) 100 Baso # (Auto) 100 Sodium 133 L Potassium 3.5 Chloride 103 Carbon Dioxide 21 L BUN 58 H Creatinine 1.21 H Estimated GFR 45 L BUN/Creatinine Ratio 47.9 H Glucose 149 H Hemoglobin A1c 7.3 H Lactate 3.0 H 3.5 H 2.1 Calcium 8.4 Magnesium Total Bilirubin 0.6 AST 30 ALT 36 H Alkaline Phosphatase 58 Total Protein 5.6 L Albumin 3.4 L Globulin 2.2 Albumin/Globulin Ratio 1.5 Urine Color Urine Appearance Urine pH Ur Specific [place] Urine Protein Urine Glucose (UA) Urine Ketones Urine Occult Blood Urine Nitrate Urine Bilirubin Urine Urobilinogen Ur Leukocyte Esterase Urine RBC Urine WBC Ur Squamous Epith Cells Amorphous Sediment Urine Bacteria Urine Yeast Ur Culture Indicated? Vol Urine Centrifuged 10/11/23 09:00 WBC RBC Hgb Hct MCV MCH MCHC RDW Plt Count Neut % (Auto) Lymph % (Auto) [place] % (Auto) Eos % (Auto) Baso % (Auto) Neut # (Auto) Lymph # (Auto) [place] # (Auto) Eos # (Auto) Baso # (Auto) Sodium Potassium Chloride Carbon Dioxide BUN Creatinine Estimated GFR BUN/Creatinine Ratio Glucose Hemoglobin A1c Lactate 2.2 H Calcium Magnesium Total Bilirubin AST ALT Alkaline Phosphatase Total Protein Albumin Globulin Albumin/Globulin Ratio Urine Color Urine Appearance Urine pH Ur Specific [place] Urine Protein Urine Glucose (UA) Urine Ketones Urine Occult Blood Urine Nitrate Urine Bilirubin Urine Urobilinogen Ur Leukocyte Esterase Urine RBC Urine WBC Ur Squamous Epith Cells Amorphous Sediment Urine Bacteria Urine Yeast Ur Culture Indicated? Vol Urine Centrifuged [facility] Medical History (Updated 10/10/23 @ 20:37 by Yudith Reina MD) Gross hematuria Arthritis Psoriasis COVID-19 virus infection (09/09/21) Acute idiopathic thrombocytopenic purpura Chest pain Diabetes Hyperlipidemia Hypertension Cystocele with rectocele Surgical History (Updated 09/25/23 @ 11:59 by Jonathan Hernandez MD) Hx of cholecystectomy History of knee replacement (2011) Status post ovarian cystectomy (1989) Family History Sister Cancer Sister Cancer Mother Diabetes mellitus Other Hypertension UTI (urinary tract infection) Social History marital status: number of children: 3 household members: none Smoking Status: Never smoker alcohol intake: current caffeine: Yes Type(s) of exercise: walking Assessment & Plan Assessment & Plan narrative: 83-year-old female admitted with UTI with sepsis syndrome without septic shock with end organ damage including acute on chronic kidney disease, leukocytosis, tachycardia and hypotension Assessment 1. UTI with sepsis syndrome symptoms improved. Blood pressure improved. Heart rate improved. White blood cell count is back down to normal. Blood culture and urine culture is pending. Patient currently on Levaquin and meropenem until we receive results of cultures. This was based on recommendations from Infectious Disease. We will continue with IV hydration, gentle. Will reassess labs in a.m.. Will need culture results before we plan outpatient treatment. Patient has a indwelling catheter due to urinary retention. Assessment 2. Chronic pain medications due to osteoarthritis senior living stable on Tylenol with codeine to 3 times daily. I think patient is feeling so poorly because she has not received her pain medications in over 12 hours. She has not been given any pain medications. Plan: Will restart the Tylenol with codeine. Will provide supplemental pink medications as well. Assessment 3. Infraumbilical hernia without incarceration. Reviewed CT scan showing no evidence of incarcerated hernia. No diverticulitis. Plan: She will follow with surgery as outpatient Assessment 4. abdominal pain presumably due to UTI. No evidence of diverticulitis or acute intra-abdominal process including incarcerated hernia. Plan: Continue with IV antibiotics. Restart Tylenol with codeine as outpatient. Assessment 5. Leukocytosis improved Plan: Continue to follow and continue on IV antibiotics Assessment 6. Type 2 diabetes Plan: Continue with CBGS q.a.c. and q.h.s. and sliding scale insulin as needed. Continue with the diabetic diet. Will restart metformin now that kidney function is improved. Will hold Amaryl until discharge. Patient received Trulicity on Sunday. Reviewed hemoglobin A1c. Continue same other meds including Jardiance Assessment 7. Hyperlipidemia Plan: Continue atorvastatin Assessment 8. Acute on chronic kidney disease Plan: Improved with IV hydration and treatment of UTI. Will continue with gentle hydration and will restart metformin and will continue antibiotics and will recheck in a.m. Assessment 9. Deconditioning Plan: Will consult PT. Assessment 10. Hypertension but hypotension on presentation Plan: Will continue to hold triamterene hydrochlorothiazide Assessment 11. DVT prophylaxis Plan: Lovenox Code status Full code 55 minutes spent with patient reviewing chart and discussing with nursing and physicians and meeting with patient and formulating a plan and documentation as well as orders Quality VTE Deep Vein Thrombosis/Pulmonary Embolism Present on Admission: No
[2023-10-11] MEDS: CODEINE/ACETAMINOPHEN 30/300 TABLET 2 TAB PO (17:35)
[2023-10-11] MEDS: LORATADINE 10 MG TABLET PO (17:35)
[2023-10-11] MEDS: MEROPENEM 1 GM in SODIUM CHLORIDE 0.9% 100 ML IV (20:08)
[2023-10-11] MEDS: METFORMIN HCL 500 MG TABLET 1000 MG PO (20:08)
[2023-10-11] MEDS: levoFLOXacin 750 MG/150 ML PIGGYBACK 100 MG IV (21:34)
[2023-10-12] VITALS (9 sets, daily range): BP systolic 103–136; BP diastolic 45–60; PULSE 77–94; RESP 16–18; TEMP 36.1–36.3; O2SAT 96–98
[2023-10-12] MEDS: CODEINE/ACETAMINOPHEN 30/300 TABLET 2 TAB PO ×4 (01:29→20:50)
[2023-10-12] MEDS: SODIUM CHLORIDE 0.9% 1,000 ML 100 ML IV ×2 (05:17→12:37)
[2023-10-12 05:29] LABS: Add Manual Diff / Slide Review NO; Basophils Absolute Auto 100 /uL (0-100); Basophils Percent Auto 0.7 % (0-2); Eosinophils Absolute Auto 100 /uL (0-450); Hematocrit 38.3 % (36-46); Hemoglobin 12.7 g/dL (12.0-16.0); Lymphocytes Absolute Auto 2600 /uL (1100-4500); Lymphocytes Percent Auto 26.9 % (25-40); Mean Corpuscular HGB Conc 33.2 % (30-36); Mean Corpuscular Hemoglobin 29.5 PG (26-34); Mean Corpuscular Volume 88.7 fL (80-100); Monocytes Absolute Auto 400 /uL (0-900); Monocytes Percent Auto 4.3 % (3-14); Neutrophils Absolute Auto 6400 /uL (1500-7000); Neutrophils Percent Auto 67.1 % (50-75); Platelet Count 113 X10^3/uL (150-400); Red Blood Cell Count 4.31 X10^6/uL (4.0-5.2); Red Cell Distribution Width 15.3 % (11.6-14.8); White Blood Cell Count 9.6 X10^3/uL (4.5-11.0)
[2023-10-12 05:39] LABS: Alanine Aminotransferase 29 IU/L (<35); Albumin Globulin Ratio 1.3 (1.0-2.8); Alkaline Phosphatase 54 U/L (38-126); Aspartate Aminotransferase 23 IU/L (14-36); BUN Creatinine Ratio 35.6 (6-22); Bilirubin Total 0.5 mg/dL (0.2-1.3); Blood Urea Nitrogen 36 mg/dL (7-17); Calcium 8.4 mg/dL (8.4-10.2); Carbon Dioxide 23 mmol/L (22-32); Chloride 108 mmol/L (98-107); Estimated Glomerular Filt Rate 56 mL/min (>60); Globulin 2.4 g/dL (1.7-4.1); HEMOLYSIS < 15 (0-50); Magnesium 1.8 mg/dL (1.6-2.3); Potassium 3.6 mmol/L (3.4-5.1); Sodium 136 mmol/L (137-145); Total Protein 5.4 g/dL (6.3-8.2)
[2023-10-12 06:03] LABS: Glucose 44 mg/dL (80-110)
[2023-10-12] MEDS: MEROPENEM 1 GM in SODIUM CHLORIDE 0.9% 100 ML IV ×2 (08:17→20:30)
[2023-10-12] MEDS: METFORMIN HCL 500 MG TABLET 1000 MG PO ×2 (08:18→17:26)
[2023-10-12] MEDS: ATORVASTATIN 20 MG TABLET PO (08:18)
[2023-10-12] MEDS: FENOFIBRATE, MICRONIZED 67 MG CAPSULE PO (08:18)
[2023-10-12] MEDS: LORATADINE 10 MG TABLET PO (08:18)
[2023-10-12] MEDS: FERROUS SULFATE 325 MG TABLET PO (08:19)
[2023-10-12] MEDS: HEPARIN 5,000 UNIT/ML VIAL 5000 UNIT SUBCUT ×2 (08:19→21:06)
[2023-10-12] MEDS: SODIUM CHLORIDE 0.9% FLUSH 10 ML IV ×2 (08:19→20:30)
[2023-10-12] MEDS: DOCUSATE 100 MG CAPSULE PO (08:19)
--- NOTE | 2023-10-12 10:52 | PM.PN.1 ---
Subjective Subjective Interval history: CC: UTI and hernia Pt is feeling better today with abx and IVF. able to eat and get to bathroom had big blowout yesterday and some movement this morning. PT and urine culture are pending. Discussed plan for outpatient hernia follow up. Still has indwelling catheter which she is working with urology to try to get out as outpt. Exam Vital Signs (past 8 hours): - 10/12/23 04:00 10/12/23 06:00 10/12/23 08:00 Temperature 97.4 F L 96.9 F L Pulse Rate 77 82 Respiratory Rate 16 16 Blood Pressure 108/53 L 115/58 L Pulse Oximetry 98 98 98 Oxygen Delivery Method Room Air Oxygen Flow Rate 0 0 10/12/23 10:00 Temperature Pulse Rate Respiratory Rate Blood Pressure Pulse Oximetry 98 Oxygen Delivery Method Room Air Oxygen Flow Rate 0 Oxygen Delivery Method Room Air Oxygen Flow Rate 0 Narrative Exam Narrative: sitting in chair watching TV Eyes Other: EOMI Resp Other: moving air well, grossly clear to auscultation bilaterally Cardio Other: regular rate, S1/S2, well perfused, minimal pedal edema GI Other: nontender active bowel sounds hernia present Other: brady draining yellow urine to bag Extrem Other: moving all limbs independently Objective Labs 10/12/23 05:15 10/12/23 05:15 Labs: Laboratory Results - last 24 hr 10/12/23 05:15 WBC 9.6 RBC 4.31 Hgb 12.7 Hct 38.3 MCV 88.7 MCH 29.5 MCHC 33.2 RDW 15.3 H Plt Count 113 L Neut % (Auto) 67.1 Lymph % (Auto) 26.9 [place] % (Auto) 4.3 Eos % (Auto) 1.0 L Baso % (Auto) 0.7 Neut # (Auto) 6400 Lymph # (Auto) 2600 [place] # (Auto) 400 Eos # (Auto) 100 Baso # (Auto) 100 Sodium 136 L Potassium 3.6 Chloride 108 H Carbon Dioxide 23 BUN 36 H Creatinine 1.01 Estimated GFR 56 L BUN/Creatinine Ratio 35.6 H Glucose 44 L* D Calcium 8.4 Magnesium 1.8 Total Bilirubin 0.5 AST 23 ALT 29 Alkaline Phosphatase 54 Total Protein 5.4 L Albumin 3.0 L Globulin 2.4 Albumin/Globulin Ratio 1.3 [facility] Medical History (Updated 10/10/23 @ 20:37 by Yudith Reina MD) Gross hematuria Arthritis Psoriasis COVID-19 virus infection (09/09/21) Acute idiopathic thrombocytopenic purpura Chest pain Diabetes Hyperlipidemia Hypertension Cystocele with rectocele Surgical History (Updated 09/25/23 @ 11:59 by Jonathan Hernandez MD) Hx of cholecystectomy History of knee replacement (2011) Status post ovarian cystectomy (1989) Family History Sister Cancer Sister Cancer Mother Diabetes mellitus Other Hypertension UTI (urinary tract infection) Social History marital status: number of children: 3 household members: none Smoking Status: Never smoker alcohol intake: current caffeine: Yes Type(s) of exercise: walking Assessment & Plan Assessment & Plan narrative: 83-year-old female admitted with UTI with sepsis syndrome without septic shock with end organ damage including acute on chronic kidney disease, leukocytosis, tachycardia and hypotension #UTI with sepsis syndrome Symptoms improving on levaquin and meropenem, VSS with better labs also. Urine culture has a preliminary organism which is still growing out. We will continue with IV hydration, gentle. Will reassess labs in a.m.. Will need culture results before planning outpatient treatment. Patient has a indwelling catheter due to urinary retention and follows with urology in outpatient setting, goal is still ultimately removal. #Chronic pain due to osteoarthritis stable on home meds, tylenol #3, continue #Infraumbilical hernia without incarceration Reviewed CT scan showing no evidence of incarcerated hernia. No diverticulitis. Will f/up with surgery as outpt. #abdominal pain improving with abx, monitor #leukocytosis likely 2/2 UTI, improved with abx, monitor #NIDDMAssessment 6. Type 2 diabetes Continue with CBGS q.a.c./q.h.s. and sliding scale insulin as needed. Continue diabetic diet. Will restart metformin now that kidney function is improved. Will hold Amaryl until discharge. Patient received Trulicity on Sunday. Reviewed hemoglobin A1c. Continue same other meds including Jardiance. #Mixed hyperlipidemia Stable, continue home atorvastatin #Acute on chronic kidney disease Improving with IVF and abx, recheck in A.m. #Deconditioning Appreciate PT input, they suggest home with or w/o HH #hx of hypertension with hypotension on presentation BP improving, holding triamterene/hctz but probably ok to resume on discharge Plan: likely home tomorrow with oral abx for UTI based on culture results DVT ppx: SCDs diet: diabetic Code: full PCP: Toni Moya VTE Deep Vein Thrombosis/Pulmonary Embolism Present on Admission: No
--- NOTE | 2023-10-12 16:10 | PT.IIE ---
Current Diagnoses Sepsis, unspecified organism (10/10/23) Acute kidney failure, unspecified (10/10/23) Urinary tract infection, site not specified (10/10/23) Unspecified abdominal pain (10/10/23) Retention of urine, unspecified (10/10/23) Severe sepsis without septic shock (10/10/23) Infection and inflammatory reaction due to indwelling urethral catheter, subsequent encounter (10/10/23) Surgical History (Last Updated 09/25/23 @ 11:59 by Jonathan Hernandez MD) History of knee replacement (2011) Hx of cholecystectomy Status post ovarian cystectomy (1989) Medical History (Last Updated 09/25/23 @ 11:59 by Jonathan Hernandez MD) Acute idiopathic thrombocytopenic purpura Arthritis Chest pain COVID-19 virus infection (09/09/21) Cystocele with rectocele Diabetes Gross hematuria Hyperlipidemia Hypertension Psoriasis Physical Therapy Inpatient Evaluation/Re-Eval M1 PT/OT-IP Prior Functional Status Start: 10/12/23 17:10 Freq: NEEDED Status: Active Protocol: Document 10/12/23 16:10 AB (Rec: 10/12/23 17:24 AB [id number]) Medical Review Prior Functional Status Medical History Reviewed Yes Communication able to make needs known Mobility and Gait pt stated that she was modified independent with all mobilities and ambulation using a 4WW Social History Household Members none Number of Floors (Floors) One Floor Number of Stairs To Enter/Railing? pt lives at [facility] living Home Environment Standard Height Toilet,Tub/ Shower,Built-In Shower Seat Home Equipment Four Wheel Walker,Grab Bars In Shower Additional Social History Comment pt stated that she has not take a shower for a long time and just sponge bathe pt also sleeps on her recliner M2 PT-IP Current Condition Start: 10/12/23 17:10 Freq: NEEDED Status: Active Protocol: Document 10/12/23 16:10 AB (Rec: 10/12/23 17:24 AB [id number]) Physical Therapy Current Condition Current Condition Evaluation Date 10/12/23 Treatment Diagnosis sepsis; acute renal failure; abdominal wall hernia; difficulty in walking Onset Date 10/10/23 M3 PT-IP Subjective Start: 10/12/23 17:10 Freq: NEEDED Status: Active Protocol: Document 10/12/23 16:10 AB (Rec: 10/12/23 17:24 AB [id number]) Subjective Physical Therapy Visit Type Type Initial Evaluation Visit Start Time 16:10 Visit Stop Time 16:35 Number of FORGING PRESS SETTER UP Visits 0 Physical Therapy Visit Comments Patient Comments agreeable to do PT Therapy Pain Assessment Pain When Pain Assessed At Rest Pain Present Pain Present Pain Reported Location Abdomen Intensity 4 Scale Used Numeric (0 - 10) Pain Management Techniques Distraction,Modification of Treatment,Re-positioning, Timing of Activity with Medications M4 PT-IP Mobility and Gait Start: 10/12/23 17:10 Freq: NEEDED Status: Active Protocol: Document 10/12/23 16:10 AB (Rec: 10/12/23 17:24 AB [id number]) PT-Transfer Assessment Sit to and From Stand Sit to and from Stand Standby Assistance,1 Person Assistance,Use of Upper Extremities Equipment Transfer Assistive Device Gait Belt,4 Wheeled Walker Orthotic/Prosthetic Devices or Brace: No Comments Mobility Comments pt sitting on the chair. obtained PLOF and home set up from pt. pt has a 4WW but brakes are not working. informed pt and pt stated that she is fine with current 4WW and always been careful. pt does not want to get another walker. pt completed sit to stand from the chair SBA and ambulated in room using 4WW. pt is impulsive and cued to slow down. pt tends to run into sides of the wall/bed during ambulation. cued for safety. pt sat back on the chair. positioned pt on the chair. call light and table placed within reach. informed pt regarding HHPT and stated that she does not need one and has been independent by herself. also informed regarding a bath aide and pt refused. Gait Assessment Gait Gait Assistance Required: Standby Assistance Distance (Feet) 30 Able to Maintain Weight Bearing Status Yes During Gait Assistive Devices Assistive Device Gait Belt,4 Wheeled Walker Orthotic/Prosthetic Devices or Brace: No Gait Deviations General Gait Pattern Decreased Stride Length, Decreased Feet Clearance Factors Limiting Gait Function Factors Limiting Gait Function Decreased Activity Tolerance, Decreased Strength,Difficulty Following Directions,Poor Balance,Poor Safety Awareness PT-Balance Assessment Sitting Balance and Reactions Static Sitting Balance Ability Normal Dynamic Sitting Balance Ability Good Standing Balance and Reactions Static Standing Balance Ability Fair Dynamic Standing Balance Ability Fair Device Used 4WW M5 PT-IP Objective Assessments Start: 10/12/23 17:10 Freq: NEEDED Status: Active Protocol: Document 10/12/23 16:10 AB (Rec: 10/12/23 17:24 AB [id number]) Orientation Orientation/Cognition Level of Alertness Alert Orientation Name,Place,Situation Language Function Ability Hard of Hearing Safety Awareness Decreased Safety Awareness Memory Description No Deficits Noted Gross Range of Motion Lower Extremity ROM Assessment Within Functional Limits Strength Lower Extremity Strength Assessment Within Functional Limits Muscle Tone Muscle Tone WNL Yes M6 PT-IP Treatment Start: 10/12/23 17:10 Freq: NEEDED Status: Active Protocol: Document 10/12/23 16:10 AB (Rec: 10/12/23 17:24 AB [id number]) Physical Therapy Treatment Education Education Provided Safety M7 PT-IP Assessment and Plan Start: 10/12/23 17:10 Freq: NEEDED Status: Active Protocol: Document 10/12/23 16:10 AB (Rec: 10/12/23 17:24 AB [id number]) PT Summary Assessment and Plan Potential Rehabilitation Potential Fair Status of Condition at Evaluation Stable Summary Impairments Pain,ROM,Strength,Balance, Coordination,Cognition,Bed Mobility,Transfers,Gait, Activity Tolerance Assessment Summary pt is an 83 y/o F who was sent to the ED after referred by the clinic for abdominal hernia. pt admitted for sepsis, acute renal failure and abdominal wall hernia. pt requiring SBA for mobility using a 4WW. pt will benefit from HHPT but stated that she does not need it. will continue to assess progress. Goals Transfer Goal Independent,Four Wheeled Walker Gait Goal Independent,Four Wheel Walker Gait Distance 250 Days to Meet Goals 10 Frequency of Treatment Frequency Of Treatment Once a Day Treatment Plan Physical Therapy Treatment Plan Bed Mobility Training,Transfer Training,Gait Training, Therapeutic Exercise,Balance Retraining,Post Op Education, Discharge Planning,Hot or Cold Pack,Neuromuscular Re-ed, Coordination Retraining,Manual Therapy Recommendations To Nursing Amount of Assist Needed 1 Person Assist Discharge Recommendations PT Discharge Recommendations Home with Assistance,Home Health Transportation Needs at Discharge Private Vehicle,Wheelchair/ Cabulance
[2023-10-13] MEDS: CODEINE/ACETAMINOPHEN 30/300 TABLET 2 TAB PO (05:45)
[2023-10-13] MEDS: FENOFIBRATE, MICRONIZED 67 MG CAPSULE PO (08:00)
[2023-10-13] MEDS: ATORVASTATIN 20 MG TABLET PO (08:00)
[2023-10-13] MEDS: SODIUM CHLORIDE 0.9% FLUSH 10 ML IV ×2 (08:15→16:03)
[2023-10-13] MEDS: MEROPENEM 1 GM in SODIUM CHLORIDE 0.9% 100 ML IV (08:25)
[2023-10-13] MEDS: METFORMIN HCL 500 MG TABLET 1000 MG PO (08:30)
[2023-10-13] MEDS: HEPARIN 5,000 UNIT/ML VIAL 5000 UNIT SUBCUT (09:00)
[2023-10-13] MEDS: FERROUS SULFATE 325 MG TABLET PO (09:00)
[2023-10-13] MEDS: LORATADINE 10 MG TABLET PO (09:00)
--- NOTE | 2023-10-13 16:07 | PC.NURSE ---
See downtime manual charting
--- NOTE | 2023-10-14 11:24 | CM.DPNOTE ---
DCP note Bonny from [facility] asked for the dc summary. Minimal downtime dc summary info was uploaded to chart. [employer] sent what was available. CM team will continue to follow as needed. MARYANNE
[2023-10-26 10:08] LABS: Misc. to WA State Lab SEE SCANNED REPORTS
== END 2023-10-13 11:45 | disposition home health service (06) | DRG 698 ==
LOC: ED 19:51 → AC 20:51
PROVIDERS: Emergency Medicine; Admitting Provider Internal Medicine; Emergency Provider Emergency Medicine; PCP Family Medicine; Referring Provider Emergency Medicine; Visit Provider Family Medicine
DX: T83.511A Infection and inflammatory reaction due to indwelling urethral catheter, initial encounter (principal); A41.9 Sepsis, unspecified organism; L89.313 Pressure ulcer of right buttock, stage 3; R65.20 Severe sepsis without septic shock; N39.0 Urinary tract infection, site not specified; R33.9 Retention of urine, unspecified; K43.9 Ventral hernia without obstruction or gangrene; M19.90 Unspecified osteoarthritis, unspecified site; E11.22 Type 2 diabetes mellitus with diabetic chronic kidney disease; I12.9 Hypertensive chronic kidney disease with stage 1 through stage 4 chronic kidney disease, or unspecified chronic kidney disease; N18.9 Chronic kidney disease, unspecified; I95.9 Hypotension, unspecified; E78.2 Mixed hyperlipidemia; Z79.84 Long term (current) use of oral hypoglycemic drugs; E11.628 Type 2 diabetes mellitus with other skin complications; L40.9 Psoriasis, unspecified
CPT/HCPCS: 11042; 36415; 74177; 80053; 81001; 81003; 82962; 83036; 83605; 83690; 83735; 85025; 87040; 87077; 87086; 93005; 96365; 96367; 96375; 97161; 97530; 99284; 99285; A9270; J1170; J1644; J1815; J1956; J2185; Q9967

== ENCOUNTER → 2023-10-16 11:54 | Outpatient (CLI) | payer OTHER, MEDICAID, SELFPAY ==
[2023-10-10 22:42] VITALS: BMI 36.6
== END ==
LOC: WC 11:54
PROVIDERS: PCP Family Medicine; Referring Provider Family Medicine; Visit Provider Surgery
DX: L89.313 Pressure ulcer of right buttock, stage 3 (principal); L89.153 Pressure ulcer of sacral region, stage 3; E11.628 Type 2 diabetes mellitus with other skin complications; L53.9 Erythematous condition, unspecified; L40.9 Psoriasis, unspecified
CPT/HCPCS: 11042; 99213

== ENCOUNTER → 2023-10-23 11:14 | Outpatient (CLI) | payer OTHER, MEDICAID, SELFPAY ==
[2023-10-10 22:42] VITALS: BMI 36.6
== END ==
LOC: WC 11:15
PROVIDERS: PCP Family Medicine; Referring Provider Family Medicine; Visit Provider Surgery
DX: L89.313 Pressure ulcer of right buttock, stage 3 (principal); L89.153 Pressure ulcer of sacral region, stage 3; E11.628 Type 2 diabetes mellitus with other skin complications; L40.9 Psoriasis, unspecified
CPT/HCPCS: 11042

== ENCOUNTER 2023-10-29 06:21 | Emergency (ER) | payer OTHER, MEDICAID, SELFPAY ==
[2023-10-10 22:42] VITALS: BMI 36.6
--- NOTE | 2023-10-29 06:39 | ED_ITS ---
HPI - Female Genitourinary General Chief complaint: Urogenital-Female Stated complaint: catherter is leaking Time Seen by Provider: 10/29/23 06:26 History of Present Illness HPI Narrative: 83-year-old female with history of ITP, obesity, [id number] diabetes, urinary retention with chronic indwelling Morrow, ventral hernia presents by private vehicle for leaking around her Morrow catheter for the last 3-4 days. Patient states that she feels ?nasty? with the leakage of urine in his requesting a catheter change. She denies any other complaints at this time. Of note, patient's heart rate in triage 120s-130s. Patient states that her heart rate is usually between 90 and 110 beats per minute. She states that she has no known heart history and does not want any workup for this heart rate at this time. She states that all she wants is a catheter change and then to go h ome. Related Data Home Medications Medication Instructions Recorded Confirmed atorvastatin 20 mg tablet (Lipitor) 20 mg PO DAILY ##0 11/25/10 10/19/23 glimepiride 4 mg tablet (Amaryl) 8 mg PO DAILY ##0 11/25/10 10/19/23 acetaminophen 300 mg-codeine 30 mg 2 tab PO Q6H PRN Pain (Scale Score 11/27/16 10/19/23 tablet 4-6) ##0 triamterene 37.5 1 tab PO DAILY ##0 11/27/16 10/19/23 mg-hydrochlorothiazide 25 mg tablet fexofenadine 180 mg tablet 180 mg PO DAILY 05/20/19 10/19/23 (Allergy Relief (fexofenadine)) ferrous sulfate 325 mg (65 mg 325 mg PO DAILY 05/20/20 10/19/23 iron) tablet empagliflozin 10 mg tablet 10 mg PO DAILY 10/18/20 10/19/23 (Jardiance) metformin 1,000 mg tablet 1,000 mg PO BID 11/02/21 10/19/23 carboxymethylcellulose sodium 0.25 1 drp ophthalmic (eye) DAILY 09/25/23 10/19/23 % eye drops (TheraTears) cyanocobalamin (vitamin B-12) 1,000 mcg SUBCUT QMONTH 09/25/23 10/19/23 1,000 mcg/mL injection kit cyclosporine 0.05 % eye drops 1 drp ophthalmic (eye) Q12H 09/25/23 10/19/23 dulaglutide 0.75 mg/0.5 mL 0.75 mg SUBCUT QWEEK 09/25/23 10/19/23 subcutaneous pen injector ([facility]) fenofibrate nanocrystallized 48 mg 48 mg PO DAILY 09/25/23 10/19/23 tablet losartan 25 mg tablet 50 mg PO DAILY 10/11/23 10/19/23 Previous Rx's Medication Instructions Recorded catheter 14 Fr (Self-Catheter, #90 ea 07/12/21 Female) Allergies Allergy/AdvReac Type Severity Reaction Status Date / Time Sulfa (Sulfonamide Allergy Severe ITCHING Verified 10/18/23 12:44 Antibiotics) [SULFA (SULFONAMIDE ANTIBIOTICS)] Review of Systems Review of Systems Narrative: See HPI Patient History Medical History Gross hematuria Arthritis Psoriasis COVID-19 virus infection (09/09/21) Acute idiopathic thrombocytopenic purpura Chest pain Diabetes Hyperlipidemia Hypertension Cystocele with rectocele Surgical History Hx of cholecystectomy History of knee replacement (2011) Status post ovarian cystectomy (1989) Family History Sister Cancer Sister Cancer Mother Diabetes mellitus Other Hypertension UTI (urinary tract infection) alcohol intake frequency: holidays/special occasions only Substance Use Type: does not use Exam Initial Vital Signs Initial Vital Signs: Vital Signs Temperature 98.6 F 10/29/23 06:40 Pulse Rate 134 H 10/29/23 06:40 Respiratory Rate 22 10/29/23 06:40 Blood Pressure 143/76 H 10/29/23 06:40 Pulse Oximetry 96 10/29/23 06:40 Oxygen Delivery Method Room Air 10/29/23 06:40 Const: Awake, alert, no acute distress, nontoxic appearing Cardiac: Tachycardia, regular rhythm RESP: unlabored, clear bilaterally, no wheezing GI: Soft, nontender, nondistended, ventral hernia in abdomen Skin: Warm, Dry, intact, no rashes Neuro: AO x3, CN II-XII grossly intact, moves all extremities Course Vital Signs Vital signs: Vital Signs - 8 hr 10/28/ 06:40 Temperature 98.6 F Pulse Rate 134 H Respiratory Rate 22 Blood Pressure 143/76 H Pulse Oximetry 96 Oxygen Delivery Method Room Air MDM - Female Genitourinary MDM Narrative Medical decision making narrative: Patient presenting for leaking around her Morrow catheter and requesting a change. Incidentally noted to be tachycardic in triage. Patient advised that she should have her tachycardia evaluated in the emergency department, particularly since she was scheduled for upcoming surgery, however patient stated that she just got a checkup at the doctor's office and was given the all clear for her surgery. I advised that if she were to show up to her surgery with unexplained elevated heart rate her procedure may be postpone or canceled until investigation can be performed, however patient continued to decline stating that all she wanted was a Morrow catheter change and nothing else. Morrow catheter changed with clean clear urine. Patient discharged back to her living facility. Discharge Plan Departure Patient Disposition: Home Clinical Impression: Encounter for Morrow catheter replacement Instructions: How to Care for Your Morrow Catheter -- Female Activity Restrictions/Additional Instructions: Your catheter was exchanged today. We incidentally found that your heart rate was elevated today, anywhere 110-130 beats per minute. I recommended evaluation of this elevated heart rate however you are declining today. I do highly recommend that you check back in with your surgeon because there is a small chance this could affect your surgery on the day of your operation. Prescriptions: No Action atorvastatin [Lipitor] 20 MG tablet 20 mg PO DAILY Qty: 0 glimepiride [Amaryl] 4 MG tablet 8 mg PO DAILY Qty: 0 triamterene-hydrochlorothiazid 37.5 MG/25 MG tablet 1 tab PO DAILY Qty: 0 acetaminophen-codeine 30 MG/300 MG tablet 2 tab PO Q6H PRN (Reason: Pain (Scale Score 4-6)) Qty: 0 (DME) Self-Catheter, Female 14 Fr misc See Rx Instructions .Route Qty: 90 11RF Rx Instructions: Use as directed at night to self-cath as needed, every couple of hours fexofenadine [Allergy Relief (fexofenadine)] 180 mg Tablet 180 mg PO DAILY ferrous sulfate 325 mg (65 mg iron) Tablet 325 mg PO DAILY Jardiance 10 mg Tablet 10 mg PO DAILY metformin 1,000 mg tablet 1,000 mg PO BID losartan 25 mg tablet 50 mg PO DAILY cyanocobalamin (vitamin B-12) 1,000 mcg/mL kit 1,000 mcg SUBCUT QMONTH Patient Comments: FIRST OF THE MONTH cyclosporine 0.05 % drops 1 drp ophthalmic (eye) Q12H fenofibrate nanocrystallized 48 mg tablet 48 mg PO DAILY TheraTears 0.25 % drops 1 drp ophthalmic (eye) DAILY Trulicity 0.75 mg/0.5 mL pen injector 0.75 mg SUBCUT QWEEK Referrals: Jackie Muñoz MD [Primary Care Provider] - Stand Alone Forms: Patient Portal/API
[2023-10-29 06:40] VITALS: BP 143/76; PULSE 134; RESP 22; TEMP 37; O2SAT 96; BMI 36.9
--- NOTE | 2023-10-29 07:30 | PC.NURSE ---
Pt reports leaking catheter, denies urinary symptoms otherwise.
== END 2023-10-29 07:40 | disposition home or self-care (01) ==
PROVIDERS: Emergency Provider Emergency Medicine; PCP Family Medicine
DX: T83.038A Leakage of other urinary catheter, initial encounter (principal)
CPT/HCPCS: 51702; 99283

== ENCOUNTER → 2023-10-30 14:18 | Outpatient (CLI) | payer OTHER, MEDICAID, SELFPAY ==
[2023-10-10 22:42] VITALS: BMI 36.6
== END ==
PROVIDERS: PCP Family Medicine; Referring Provider Family Medicine; Visit Provider Surgery
DX: E11.628 Type 2 diabetes mellitus with other skin complications (principal); L89.153 Pressure ulcer of sacral region, stage 3; L40.9 Psoriasis, unspecified
CPT/HCPCS: 11042

== ENCOUNTER 2023-10-31 09:54 | Inpatient (IN) | payer OTHER, MEDICAID, SELFPAY ==
[2023-10-10 22:42] VITALS: BMI 36.6
[2023-10-31] VITALS (13 sets, daily range): BP systolic 111–133; BP diastolic 52–85; PULSE 78–105; RESP 14–19; TEMP 35.8–37; O2SAT 92–97; BMI 36.9
--- NOTE | 2023-10-31 10:26 | PM.PREOP ---
Pre-operative Note Interval Note History & Physical reviewed/Exam performed by Physician: Yes Changes to H&P: No
--- NOTE | 2023-10-31 10:38 | SUR.OPER ---
Supine on padded OR bed, head on pillow, arms secured on padded arm boards at <90 degrees abduction, legs uncrossed, safety belt at thigh, tape over blanket over lower legs.
[2023-10-31] MEDS: LACTATED RINGERS 1,000 ML 42 ML IV (10:42)
[2023-10-31] MEDS: CEFAZOLIN 2 GM/100 ML PREMIX 100 ML IV (11:08)
[2023-10-31] MEDS: BUPIVACAINE 0.25% (PF) VIAL 30 ML INJ (11:09)
[2023-10-31] MEDS: BUPIVACAINE LIPOSOME 266 MG/20 ML VIAL INJ (11:15)
[2023-10-31] MEDS: ACETAMINOPHEN IV 1,000 MG/100 ML VIAL 400 MG IV (11:35)
--- NOTE | 2023-10-31 13:17 | P.OP_ITS ---
Operative Date/Time/Diagnoses Date of procedure: 10/31/23 Time of procedure: 13:25 Pre-op diagnosis: incisional ventral hernia Post-op diagnosis: same Procedure & Clinicians Procedure: Open repair of ventral hernia 20 cm Same procedure as scheduled: Yes Indications: 83 y.o woman with a large partially reducible incisional hernia containing small bowel causing significant pain Surgeon: Gus Montgomery Assistant Boys Track Coach: Anatoly Martinez Anesthesia Type: General Operative Notes Findings: faroese cheese defect total length 20 cm containing small bowel Specimen(s): none sent Estimated Blood Loss (mL): 100 Procedure in detail: Patient was brought to the operating room placed supine on the table. Bilateral lower extremity compression devices were applied. They received 2 g of Ancef prior to skin incision. Prepped and draped in sterile fashion, ioban was placed. Time-out was performed. A midline incision entering through the previous scar. The subcutaneous tissue was divided to expose the midline fascia. The fascia had a 20 cm faroese cheese defect extending from the epigastric to supra pubic. The fascia was grasped elevated and sharply opened. There was minimal adhesive tissue within the abdomen. A towel was then placed over the visceral content to protect it out of harms way. Hernia sac was excised. The retrorectus space was not accessible, the posterior fascia was largely absent and what remained was severely attenuated. Instead we proceeded with an onlay repair. The anterior fascia was cleared in all directions around the defect by raising skin flaps. The abdomen was irrigated hemostasis was achieved. The fascia was closed in running with PDS. Given her high potential for a wound infection we used phasix mesh 25 x 20 cm. The mesh was secured to the anterior fascia using Tissel and Ethibond suture. The subcutaneous tissue was then reapproximated using Vicryl skin closed with running 4-0 Monocryl followed by the application of Dermabond. Patient emerged from anesthesia was extubated and transferred to recovery room in stable condition. Complications: none Post-operative Condition: stable Disposition: same day surgery
[2023-10-31] MEDS: OXYCODONE IR 5 MG TABLET PO ×3 (13:28→21:59)
[2023-10-31] MEDS: HYDROMORPHONE 0.5 MG INJ IV ×3 (14:11→21:15)
--- NOTE | 2023-10-31 14:50 | OT.IPNOTE ---
Attempted OT eval and pt is too much pain yey since having open repair incisional hernia repair. Able to give pt information of abdominal surgery and get her prior level of care, no charge.
[2023-10-31] MEDS: IBUPROFEN 600 MG TABLET PO (15:57)
[2023-10-31] MEDS: ACETAMINOPHEN 325 MG TABLET 650 MG PO (16:30)
--- NOTE | 2023-10-31 16:35 | PT.IIE ---
Current Diagnoses Other and unspecified ventral hernia with gangrene (10/31/23) Surgery Performed Operation Date: 10/31/23 11:15 Actual Procedures p Hernia Repair Ventral - 8 cm - Gus Montgomery MD Surgical History (Last Reviewed 10/29/23 @ 06:41 by Gwendolyn Treviño MD) History of knee replacement (2011) Hx of cholecystectomy Status post ovarian cystectomy (1989) Medical History (Last Reviewed 10/29/23 @ 06:41 by Gwendolyn Treviño MD) Acute idiopathic thrombocytopenic purpura Arthritis Chest pain COVID-19 virus infection (09/09/21) Cystocele with rectocele Diabetes Gross hematuria Hyperlipidemia Hypertension Psoriasis Physical Therapy Inpatient Evaluation/Re-Eval M1 PT/OT-IP Prior Functional Status Start: 10/31/23 17:46 Freq: NEEDED Status: Active Protocol: Document 10/31/23 16:35 AB (Rec: 10/31/23 18:00 AB [id number]) Medical Review Prior Functional Status Medical History Reviewed Yes Communication able to make needs known Mobility and Gait pt stated that she was modified independent with all mobilities and ambulation using a 4WW Activities of Daily Living and IADL's per OT note: Pt able to do all ADL needs and woudl sponge off for showering needs in front of the sink. Social History Household Members none Living Arrangements Residential Facility Number of Floors (Floors) One Floor Number of Stairs To Enter/Railing? pt lives at [facility] : no steps to enter Home Environment Standard Height Toilet,Tub/ Shower,Built-In Shower Seat Home Equipment Four Wheel Walker,Grab Bars In Shower Additional Social History Comment pt usually sponge bathes pt sleeps on a recliner at home M2 PT-IP Current Condition Start: 10/31/23 17:46 Freq: NEEDED Status: Active Protocol: Document 10/31/23 16:35 AB (Rec: 10/31/23 18:00 AB [id number]) Physical Therapy Current Condition Current Condition Evaluation Date 10/31/23 Treatment Diagnosis s/p open ventral hernia repair ; difficulty in walking Onset Date 10/31/23 M3 PT-IP Subjective Start: 10/31/23 17:46 Freq: NEEDED Status: Active Protocol: Document 10/31/23 16:35 AB (Rec: 10/31/23 18:00 AB [id number]) Subjective Physical Therapy Visit Type Type Initial Evaluation Visit Start Time 16:35 Visit Stop Time 17:10 Number of AUDIT MACHINE OPERATOR Visits 0 Physical Therapy Visit Comments Patient Comments agreeable to do PT Therapy Pain Assessment Pain When Pain Assessed At Rest Pain Present Pain Present Pain Reported Location Abdomen Intensity 10 Description Sharp Pain Management Techniques Distraction,Modification of Treatment,Re-positioning, Timing of Activity with Medications M4 PT-IP Mobility and Gait Start: 10/31/23 17:46 Freq: NEEDED Status: Active Protocol: Document 10/31/23 16:35 AB (Rec: 10/31/23 18:00 [id number]) PT-Bed Mobility Assessment Supine to Sit Supine to Sit Maximum Assistance,1 Person Assistance,2 Person Assistance ,Head of Bed Elevated,Bedrails Sit to Supine Sit to Supine Maximum Assistance,2 Person Assistance PT-Transfer Assessment Sit to and From Stand Sit to and from Stand Maximum Assistance,1 Person Assistance,2 Person Assistance ,Use of Upper Extremities Equipment Transfer Assistive Device Gait Belt,Front Wheeled Walker Orthotic/Prosthetic Devices or Brace: No Comments Mobility Comments pt supine in bed and agreeable to do PT. c/o increase abdominal pain and nurse just provided pt with IV dilaudid. obtained PLOF and home set up from pt. reviewed abdominal precautions and log roll bed mobility. pt completed supine to sit log roll max A x 1-2 and max cues . elevated HOB up once pt was on her side to assist with bed mobility. pt required max A for initial sitting on EOB. pt with increase posterior trunk leaning. repositioned pt and pt able to sit SBA to CGA afterwards. no c/o dizziness but c/o increase abdominal pain. stated that abdominal binder is too tight. readjusted abdominal binder. pt completed sit to stand max Ax 1-2 and max cues. pt was able to take side steps towards HOB ~ 2 ft max A using FWW. pt requested to just go back to bed. completed sit to supine max A x 2 and max cues. positioned pt in bed. call light and table placed within reach. Gait Assessment Gait Gait Assistance Required: Maximum Assistance,1 Person Assist,2 Person Assist Distance (Feet) 2 Assistive Devices Assistive Device Gait Belt,Front Wheeled Walker Orthotic/Prosthetic Devices or Brace: Yes Gait Deviations General Gait Pattern Decreased Stride Length, Decreased Feet Clearance Factors Limiting Gait Function Factors Limiting Gait Function Decreased Activity Tolerance, Decreased Strength,Limited Range of Motion,Pain,Poor Balance,Poor Safety Awareness Comments Gait Comments able to take side steps towards HOB using FWW PT-Balance Assessment Sitting Balance and Reactions Static Sitting Balance Ability Fair Dynamic Sitting Balance Ability Poor Standing Balance and Reactions Static Standing Balance Ability Poor Dynamic Standing Balance Ability Poor Device Used FWW M5 PT-IP Objective Assessments Start: 10/31/23 17:46 Freq: NEEDED Status: Active Protocol: Document 10/31/23 16:35 AB (Rec: 10/31/23 18:00 AB [id number]) Orientation Orientation/Cognition Level of Alertness Alert Orientation Name,Place,Situation Language Function Ability No Deficits Noted Safety Awareness Decreased Safety Awareness Memory Description No Deficits Noted Gross Range of Motion Lower Extremity ROM Assessment Within Functional Limits Strength Lower Extremity Strength Assessment Within Functional Limits Muscle Tone Muscle Tone WNL Yes M6 PT-IP Treatment Start: 10/31/23 17:46 Freq: NEEDED Status: Active Protocol: Document 10/31/23 16:35 AB (Rec: 10/31/23 18:00 AB [id number]) Physical Therapy Treatment Education Education Provided Precautions,Post-Op Packet, Safety M7 PT-IP Assessment and Plan Start: 10/31/23 17:46 Freq: NEEDED Status: Active Protocol: Document 10/31/23 16:35 AB (Rec: 10/31/23 18:00 AB [id number]) PT Summary Assessment and Plan Potential Rehabilitation Potential Fair Status of Condition at Evaluation Evolving Summary Impairments Pain,ROM,Strength,Balance, Coordination,Sensation,Tone, Cognition,Bed Mobility, Transfers,Gait,Activity Tolerance Assessment Summary pt is an 83 y/o F who underwent open ventral hernia repair POD 0. pt has abdominal precautions. pt requiring max A x 2 for bed mobility, max A x 1-2 for sit<>stand and was only able to take steps sideways towards HOB for positioning using fWW max A x 1-2 and max cues. pt lives at [facility] and will need assistance at this time. d/c plan depending on progress and will continue to assess. Goals Bed Mobility Goal Independent Transfer Goal Independent,Front Wheeled Walker Gait Goal Independent,Front Wheel Walker Gait Distance 200 Other Goals improve transfers and ambulation using 4WW mod I ~ 300 ft Days to Meet Goals 10 Frequency of Treatment Frequency Of Treatment Once a Day Treatment Plan Physical Therapy Treatment Plan Bed Mobility Training,Transfer Training,Gait Training, Therapeutic Exercise,Balance Retraining,Post Op Education, Discharge Planning,Hot or Cold Pack,Neuromuscular Re-ed, Coordination Retraining,Manual Therapy Precautions Abdominal Surgery Precautions Log Roll,Lifting Restrictions, Gait Belt above Incisional Area Recommendations To Nursing Amount of Assist Needed 2 Person Assist Discharge Recommendations PT Discharge Recommendations Home with 24/7 Assist Available,Home Health,SNF Rehab,Home vs SNF Equipment Needed for Home Before FWW if not safe with 4WW Discharge Transportation Needs at Discharge Wheelchair/Cabulance
[2023-10-31] MEDS: INSULIN LISPRO 100 UNIT/ML 3ML VIAL SUBCUT ×2 (18:17→21:16)
[2023-10-31] MEDS: DOCUSATE 100 MG CAPSULE PO (21:16)
[2023-11-01] VITALS (7 sets, daily range): BP systolic 113–140; BP diastolic 41–86; PULSE 62–86; RESP 16–18; TEMP 36.1–37.1; O2SAT 93–97
[2023-11-01] MEDS: ACETAMINOPHEN 325 MG TABLET 650 MG PO ×3 (03:15→22:42)
[2023-11-01] MEDS: OXYCODONE IR 5 MG TABLET PO ×3 (03:16→12:00)
[2023-11-01] MEDS: HYDROMORPHONE 0.5 MG INJ IV ×4 (06:10→20:14)
[2023-11-01] MEDS: INSULIN LISPRO 100 UNIT/ML 3ML VIAL SUBCUT ×4 (08:06→20:20)
[2023-11-01] MEDS: ENOXAPARIN 40 MG/0.4 ML SYRINGE SUBCUT (08:11)
[2023-11-01] MEDS: TRIAMTERENE/HCTZ 37.5/25 CAPSULE 1 CAP PO (08:11)
[2023-11-01] MEDS: IBUPROFEN 600 MG TABLET PO ×2 (08:11→13:49)
[2023-11-01] MEDS: DOCUSATE 100 MG CAPSULE PO ×2 (08:12→20:15)
[2023-11-01] MEDS: LOSARTAN 25 MG TABLET 50 MG PO (08:12)
[2023-11-01] MEDS: CARBOXYMETHYLCELLULOSE DROPS 1 DROPS EYE-BOTH (08:13)
--- NOTE | 2023-11-01 09:35 | OT.IP.EVAL ---
Current Diagnoses Other and unspecified ventral hernia with gangrene (10/31/23) Surgery Performed Operation Date: 10/31/23 11:15 Actual Procedures p Hernia Repair Ventral - 8 cm - Gus Montgomery MD Past Medical History (Last Reviewed 10/29/23 @ 06:41 by Gwendolyn Treviño MD) Acute idiopathic thrombocytopenic purpura Arthritis Chest pain COVID-19 virus infection (09/09/21) Cystocele with rectocele Diabetes Gross hematuria Hyperlipidemia Hypertension Psoriasis Surgical History (Last Reviewed 10/29/23 @ 06:41 by Gwendolyn Treviño MD) History of knee replacement (2011) Hx of cholecystectomy Status post ovarian cystectomy (1989) Occupational Therapy Inpatient Evaluation/Re-Eval M2 OT-IP Current Condition Start: 10/31/23 14:51 Freq: Status: Active Protocol: Document 11/01/23 10:14 [facility] (Rec: 11/01/23 10:33 [facility] [id number]) Occupational Therapy Current Condition Current Condition Evaluation Date 11/01/23 Treatment Diagnosis S/P open repair incisional ventral hernia repair Diagnosis Onset Date 10/31/23 Post Operative Precautions Abdominal Surgery Precautions Log Roll,Lifting Restrictions, Gait Belt above Incisional Area M3 OT- IP Subjective and Pain Start: 10/31/23 14:51 Freq: Status: Active Protocol: Document 11/01/23 10:14 [facility] (Rec: 11/01/23 10:33 [facility] [id number]) OT- Subjective Occupational Therapy Visit Type Type Initial Evaluation Visit Start Time 09:05 Visit Stop Time 09:35 Occupational Therapy Visit Comments Patient Comments Pt agreed to get up and feels that she will not be able to care for herself at home and wanting to go to skilled rehab . Patient/Caregiver Goals To get better. OT Pain Assessment Pain When Pain Assessed During Mobility Pain Present Pain Present Pain Reported Location Abdomen Intensity 7 Scale Used Numeric (0 - 10) M4 OT- IP ADL's Start: 10/31/23 14:51 Freq: Status: Active Protocol: Document 11/01/23 10:14 [facility] (Rec: 11/01/23 10:33 [facility] [id number]) OT CSH-Ooby-Vzfvfam General Evaluation Self-Feeding Ability Independent OT ADL-Grooming Comments OT Grooming Comments Not performed OT ADL-Oral Care Comments Oral Care Comments Not performed. OT ADL-Dressing General Eval Lower Body Dressing Ability Maximum Assistance Areas Needing Assistance Socks Comments OT Dressing Comments At this time educated pt of use of LB dressing equipment to assist with her needs. Pt wears slip on shoes. OT ADL-Toileting General Evaluation Toileting Ability Total Assistance Areas Needing Assistance Empty Catheter or Colostomy Comments OT Toileting Comments Pt not having to go at this time and catheter in place. OT ADL-Bathing Comments OT Bathing Comments Sponge bath more appropriate at this time. M5 OT- IP IADL's Start: 10/31/23 14:51 Freq: Status: Active Protocol: Document 11/01/23 10:14 [facility] (Rec: 11/01/23 10:33 [facility] [id number]) OT-Instrumental Activities of Daily Living Deficits IADL Deficits Identified Deficits Home Safety Awareness Awareness of Need for Assistance at Home Good Awareness Ability to Problem Solve Emergency Able to Problem Solve Situations Medication Management Medication Management No Deficits Identified Money Management Money Management No Deficits Identified Meal Preparation Meal Preparation Caregiver Provides Assist Line Helper Line Helper Caregiver Provides Assist M6 OT- IP Functional Cognition Start: 10/31/23 14:51 Freq: Status: Active Protocol: Document 11/01/23 10:14 [facility] (Rec: 11/01/23 10:33 [facility] [id number]) Cognitive Factors Limiting Selfcare Function Cognitive Ability Level of Alertness Alert Patient Orientation Name,Age,Birthday,Month,Date, Year,Day of Week,Place, Situation Attention Span Ability Capable of Focused Attention, Capable of Sustained Attention Ability to Follow Commands Able to Follow One Step Commands Cognitive Comments Cognitive Assessment Comments Pt able to follow commands for ADL and mobility needs. Having to insist that pt does not use her 4ww at this time as the brakes do not lock and more steady to use the FWW at this time. If pt going home would benefit from getting a FWW. OT- Vision and Hearing OT- Hearing Assessment OT- Hearing Assessment Hearing Impaired OT- Vision Assessment Visual Acuity Glasses All The Time Visual Attentiveness WFL Occular Pursuits WFL Vision Assessment Comments Pt is hard of hearing. M7 OT- IP Mobility and Balance Start: 10/31/23 14:51 Freq: Status: Active Protocol: Document 11/01/23 10:14 [facility] (Rec: 11/01/23 10:33 [facility] [id number]) OT- Bed Mobility Assessment Supine to Sit Supine to Sit Assist Maximum Assistance,Head of Bed Elevated,Bedrails Sit to Supine Sit to Supine Assist Total Assistance,2 Person Assistance Scooting Scooting to Edge of Bed Minimal Assistance OT-Transfer Assessment Sit to and From Stand Sit to and from Stand Moderate Assistance Technique Transfer Destination Bed Transfer Technique Stand Step Pivot Devices Transfer Assistive Devices Gait Belt,Front Wheeled Walker Comments Mobility Comments MAXA X 1 to get up the edge of the bed with HOB up , assist to scoot her hips over and get her trunk upright. MODAx1 to stand to the FWW from the high bed and MODA X 1 to take a couple steps to the head of the bed. OT- Balance Assessment Sitting Balance and Reactions Static Sitting Balance Ability Good Dynamic Sitting Balance Ability Fair Standing Balance and Reactions Static Standing Balance Ability Fair Dynamic Standing Balance Ability Poor M8 OT- IP Objective Assessments Start: 10/31/23 14:51 Freq: Status: Active Protocol: Document 11/01/23 10:14 [facility] (Rec: 11/01/23 10:33 [facility] [id number]) OT Gross Range of Motion Upper Extremity Range of Motion Assessment Within Functional Limits OT Strength Comments Strength Comments Pt at least 3-/5 NT due to pain from arthritis in BUE. M9 OT- IP Assessment and Plan Start: 10/31/23 14:51 Freq: Status: Active Protocol: Document 11/01/23 10:14 [facility] (Rec: 11/01/23 10:33 [facility] [id number]) OT Summary Assessment and Plan Potential Rehabilitation Potential Good Analytic Complexity at Evaluation Moderate Summary OT Impairments Pain,Strength,Balance, Functional Mobility,Grooming, Dressing,Toileting,Bathing, Toilet Transfers,Shower Transfers,Activity Tolerance Progress Towards Goals Progressing Toward Goals,Slow Progress due to Medical Issues Assessment Summary Pt MOD complexity and main barriers are pain, decreased activity tolerance and now needing assist for all ADL and mobility needs since having open repair incisional ventral hernia. At this time pt would benefit from short skilled rehab prior to going home. Goals Grooming Goal Independent Dressing Goal Independent,Cornice Upholsterer Toileting Goal Independent Bathing Goal Independent Toilet Transfer Goal Independent Shower Transfer Goal Independent Patient/Caregiver Education Goal Demonstrate Post-Op Precautions Days to Meet Goals 15 Frequency of Treatment Frequency Of Treatment Once a Day Treatment Plan OT Treatment Plan ADL Training,Functional Mobility,Patient/Family Education,Discharge Planning Other Treatment Recommendations and Next Transfer to [facility] with MODA X 1 Treatment Focus with FWW. Discharge Recommendations OT Discharge Recommendations SNF Rehab Transportation Needs at Discharge Wheelchair/Cabulance
--- NOTE | 2023-11-01 14:04 | PT-IP ANOTE ---
Pt refused to work with PT this afternoon. She reports being in too much pain to mobilize with PT. PT will check on pt tomorrow.
--- NOTE | 2023-11-01 14:18 | CM.DANOTE ---
Initial DCP Assessment Visit Note Reviewed EMR and team rounds for pt's medical status and updates. Met with pt, dtr, and granddaughter at bedside to introduce self and role, pt was found to be awake, alert/oriented w/mild confusion, yet she was able to express her preferences for SNF rehab and asked appropriate questions re: process and next steps. Pt lives modified independently at [facility]. Her dtr, Berna is her proxy and is very supportive. Payor: Andrea Sanon Attending: Dr. Montgomery PCP: Dr. Muñoz Pt is a 83 year-old F post-op day 1 from a planned hernia repair surgery. Pt has had the hernia for several years, however it has grown larger and more painful over time. Pre Dr. Montgomery, this was an extensive open surgery that left a 14-inch long incision site and has a DINA drain in place still draining quite a bit of red fluid. Pt states that pain is acute, and is only minimally able to move around in the bed. Dr. Montgomery states that due to the extensive recovery she will face, and the wound and drain management needs, that she should go to SNF rehab for postoperative recovery prior to returning back to her [facility] home. Referral sent to [facility], they can accept her for Thursday 11/02, will need to call and confirm transportation plan, pt will meet her 3-midnights as of 11/02. Dtr, Berna, is in agreement and supports this plan. Will continue to monitor and assist with d/c transition of care as well as any further evolving needs during this admission. Discharge Planning/Care Management CM Discharge Assessment Start: 11/01/23 14:14 Freq: Status: Active Protocol: Document 11/01/23 14:14 [facility] (Rec: 11/01/23 14:18 [facility] [id number]) Discharge Planning Assessment Assigned Senior Instructional Designer ADELIA Herrera Advance Directives? Yes Advance Directives on File No History Provided By Patient,Family Member,Medical Record Expected Length of Stay 3 Has Patient been admitted in last 30 No days? Prior Living Arrangements Penitentiary Facility Comment [facility] Household Members none Type of transporation used prior to Relies on Others admit Facility Name Admitted From: [facility] [address] Willing to Return to Facility? Yes Independent with ADL's No: modified independent w/ walker Is patient alert and oriented? Yes: some confusion, but likely post-op related Needs Assistance With Grooming,Meal Prep,Toileting, Managing Medications,Home Chores / Shopping Caregiver for Another No DME Already Rented / Owned Bath Bench,Elevated Toilet Seat,FWW / Walker Patient/Family Preference Senior Care Facility Barriers to Discharge No Discharge Plan Senior Care Facility Transportation Arrangement Facility/cabulance Referrals Initiated Senior Care,Home Health If patient plan is SNF: Has PASSR been No completed? Inpatient Status as of 10/31/23 Medicare Choice List Provided Yes Medicare choice list reviewed on patient electronic tablet with SNF/HH Preference [facility] Has Agency SNF been contacted Yes Comment They can accept her on 11/03/23. Whiteboard Updated in Patient Room with Yes name and ext. # of Senior Instructional Designer Review Status In Process Please Provide Date Initial DC 11/01/23 Assessment Was Performed Pre-Anesthesia Assessment Start: 10/31/23 07:27 Freq: Status: Complete Protocol: Document 10/31/23 07:28 [facility] (Rec: 10/31/23 07:39 [facility] [id number]) Pre-Anesthesia Assessment Patient Information Reviewed Via Chart Review Primary Care Provider Jackie Muñoz Seen Specialist in Last 12 Months Yes Specialist Seen General surgeon,Urologist Primary Language Wallisian Preferred Language Wallisian Food Service Substitute Required No Height 157.48 cm Weight 91.626 kg Body Mass Index (BMI) 36.9 Hx Anesthesia Reactions No Hx Family Anesthesia Reaction No Hx Malignant Hyperthermia No Hx Blood Transfusions No Hx Blood Transfusion Reaction No Anesthesia Review Requested No Recoverer No alcohol intake current alcohol intake frequency holidays/special occasions only Smoking Status Never smoker Substance Use Type does not use Patient is completely paralyzed or No completely immobile Mental Status Oriented to own ability Does patient have RAMSAY/SOB No: Pt reports cough Hx Sleep Apnea No CPAP/BIPAP use not prescribed Currently Taking a Beta Patricia No Hx Chest Pain No Hx SOB No Hx Syncope or Dizziness No Cardiac Testing No Hx Pacemaker/ICD No Pacemaker Rep Required? No Cardiac Clearance Received No Urinary Catheter Present Yes: Brady cath changed in ED 10/29/23 Hx Urinary Self Catheterization No Diabetes Yes: Pt does not check blood sugars at home HgbA1C 7.3 Date 10/11/23 Patient No Lactating No Presence of External or Internal Medical Yes: Right knee, brady cath Devices Received a COVID vaccine? No Marital Status Lives With none Current Living Arrangements Penitentiary Facility Patient Discharge Plan Description Return Home Do You Have Any Spiritual Beliefs That No May Affect Your HC Choices? Do You Have Any Cultural Practices That No May Affect Your HC Choices? Emergency Contact Name Berna White Emergency Contact Phone Number see below Advance Directives? Yes Advance Directives on File No Power of Finance Manager No
[2023-11-01] MEDS: OXYCODONE IR 10 MG TABLET PO ×3 (15:42→22:41)
--- NOTE | 2023-11-01 18:12 | PC.NURSE ---
Dayshift: Pt consistently reporting 8-9/10 pain through afternoon despite medication. RN Dariana and this RN noted a firm 3x2.5 abdominal mass to right of midline surgical incision with pain concentrated in that area. Called MD Montgomery for further assessment at 1622. MD Montgomery at bedside at 1805, stated that mass may be due to mesh, inflammation, and/or scar tissue from previous procedures and is not concerning. MD Montgomery advised to watch for abrupt change in status such as N/V or 10/10 pain as indicators of blockage. Pt's pain adequately managed with increase in PO Oxycodone. Pt reported no passing gas this shift. MD Montgomery aware. Pt denies N/V. Will continue to monitor. Pt reported to this project financial analyst pressure injury to coccyx; removed old dressing, inspected wound (estimated Stage 2), cleansed wound area, replaced with 1xAllevyn dressing. Pt bridged to avoid pressure on coccyx. Notified MD Montgomery.
--- NOTE | 2023-11-01 20:16 | PM.PNPO.1 ---
Subjective Subjective Date Patient Seen: 11/01/23 Time Patient Seen: 20:16 Interval history: No major events. Pain control improved after transitioning from 5-10 mg of oxycodone as needed. No flatus tolerating regular diet. Significant incisional pain affecting her mobility. Exam Vital Signs (past 8 hours): - 11/01/23 16:00 11/01/23 19:35 Temperature 97.0 F L 98.3 F Pulse Rate 78 81 Respiratory Rate 16 16 Blood Pressure 124/57 L 116/49 L Pulse Oximetry 93 97 Oxygen Flow Rate 0 0 Oxygen Delivery Method Room Air Oxygen Flow Rate 0 Narrative Exam Narrative: General elderly woman alert oriented no acute distress Abdomen soft appropriately tender to palpation. Midline incision is clean dry intact. Drain serosanguineous. [facility] Medical History Gross hematuria Arthritis Psoriasis COVID-19 virus infection (09/09/21) Acute idiopathic thrombocytopenic purpura Chest pain Diabetes Hyperlipidemia Hypertension Cystocele with rectocele Surgical History Hx of cholecystectomy History of knee replacement (2011) Status post ovarian cystectomy (1989) Family History Sister Cancer Sister Cancer Mother Diabetes mellitus Other Hypertension UTI (urinary tract infection) Social History marital status: number of children: 3 household members: none Smoking Status: Never smoker alcohol intake: current caffeine: Yes Type(s) of exercise: walking Assessment & Plan Post-op Postoperative Procedures: Procedures Operation Date: 10/31/23 11:15 Actual Procedure Side Surgeon p Hernia Repair Ventral - 8 cm Gus Montgomery MD Postoperative plan narrative: Maidsyn is an 83-year-old woman postoperative day 1 status post open ventral hernia repair. Slow recovery as anticipated. She had significant mobility issues at baseline which have become increasingly difficult with her surgical pain. Given her immobility and living independently I think it is best she has some time to recover in a shelter facility prior to returning home. -Regular diet -continue PT -SCDs and prophylactic Lovenox
[2023-11-02 00:33] VITALS: BP 114/53; PULSE 72; RESP 16; TEMP 36.1; O2SAT 95
[2023-11-02] MEDS: OXYCODONE IR 10 MG TABLET PO ×3 (02:03→09:41)
[2023-11-02 04:15] VITALS: BP 115/62; PULSE 95; RESP 16; TEMP 36.9; O2SAT 95
[2023-11-02] MEDS: HYDROMORPHONE 0.5 MG INJ IV ×2 (04:20→07:58)
[2023-11-02 05:49] LABS: Add Manual Diff / Slide Review NO; Basophils Absolute Auto 0 /uL (0-100); Basophils Percent Auto 0.3 % (0-2); Eosinophils Absolute Auto 300 /uL (0-450); Eosinophils Percent Auto 3.1 % (2-4); Hematocrit 37.8 % (36-46); Hemoglobin 12.7 g/dL (12.0-16.0); Lymphocytes Absolute Auto 2400 /uL (1100-4500); Lymphocytes Percent Auto 24.3 % (25-40); Mean Corpuscular HGB Conc 33.6 % (30-36); Mean Corpuscular Hemoglobin 29.6 PG (26-34); Monocytes Absolute Auto 600 /uL (0-900); Monocytes Percent Auto 5.7 % (3-14); Neutrophils Absolute Auto 6600 /uL (1500-7000); Neutrophils Percent Auto 66.6 % (50-75); Platelet Count 154 X10^3/uL (150-400); Red Cell Distribution Width 15.8 % (11.6-14.8); White Blood Cell Count 9.9 X10^3/uL (4.5-11.0)
[2023-11-02] MEDS: ACETAMINOPHEN 325 MG TABLET 650 MG PO (07:57)
[2023-11-02] MEDS: IBUPROFEN 600 MG TABLET PO (07:58)
[2023-11-02 08:00] VITALS: BP 126/65; PULSE 102; RESP 20; TEMP 35.9; O2SAT 93
[2023-11-02] MEDS: INSULIN LISPRO 100 UNIT/ML 3ML VIAL SUBCUT ×2 (08:04→11:55)
[2023-11-02] MEDS: TRIAMTERENE/HCTZ 37.5/25 CAPSULE 1 CAP PO (09:41)
[2023-11-02 09:42] VITALS: BP 115/62; PULSE 95
[2023-11-02] MEDS: DOCUSATE 100 MG CAPSULE PO (09:42)
[2023-11-02] MEDS: LOSARTAN 25 MG TABLET 50 MG PO (09:42)
[2023-11-02] MEDS: ENOXAPARIN 40 MG/0.4 ML SYRINGE SUBCUT (09:45)
[2023-11-02] MEDS: CARBOXYMETHYLCELLULOSE DROPS 1 DROPS EYE-BOTH (09:47)
--- NOTE | 2023-11-02 11:04 | PM.DS.1 ---
History of Present Illness History of Present Illness Date Patient Seen: 11/02/23 Time Patient Seen: 11:04 Chief complaint: Open ventral hernia repair *OPB* Narrative: Madisyn Covarrubias is a 83-year-old woman PMH ITP, fhv-lyxoujf-vovxtcbbe diabetes, hypertension and obesity with a large incisional hernia. She has a midline incision from previous ovarian cystectomy performed 1989. The hernia has been present for many years but over the past several months as it continues to enlarge has now become quite painful at times. CT abdomen pelvis from October 2023 demonstrates a infraumbilical 10 cm fascial defect which contains small bowel. No prior operative repair. -hypertension controlled -jel-dncbnvv-reruhxdsn diabetes A1c 7.3 -Obesity BMI 37 -ITP-Plt 113 October 28 Discharge Providers Provider Date of admission: 10/31/23 09:54 Discharge Date: 11/02/23 Primary care physician: Jackie Muñoz MD Consults: 10/31/23 13:12 Consult to Discharge Planning Routine Comment: Consult to Occupational Therapy Evaluate & Treat Comment: Physician Instructions: Evaluate and treat Consult to Physical Therapy Evaluate & Treat Comment: Physician Instructions: Evaluate and Treat 10/31/23 16:51 Consult to Physical Therapy Evaluate & Treat Comment: Physician Instructions: Evaluate and Treat Discharge provider: Gus Montgomery MD Summary Hospital Course Discharge Diagnosis: Ventral hernia Obesity Diabetes Hospital Course: Madisyn underwent a open ventral hernia repair of a large 20 cm ventral hernia 10/25/2023. Unremarkable operation. She had significant postoperative pain which impaired her mobility. She lives alone and it was felt that she would benefit from a stay in half-way facility prior to returning home. Exam Vital Signs (past 8 hours): - 11/02/23 04:15 11/02/23 09:42 Temperature 98.5 F Pulse Rate 95 H 95 H Respiratory Rate 16 Blood Pressure 115/62 115/62 Pulse Oximetry 95 Oxygen Flow Rate 0 Oxygen Delivery Method Room Air Oxygen Flow Rate 0 Narrative Exam Narrative: General elderly woman alert oriented no acute distress Chest nonlabored respiration Abdomen soft appropriately tender to palpation. Midline dressing clean dry intact. Drain serosanguineous. Objective Labs 11/02/23 04:57 Labs: Laboratory Results - last 24 hr 11/02/23 04:57 WBC 9.9 RBC 4.30 Hgb 12.7 Hct 37.8 MCV 88.0 MCH 29.6 MCHC 33.6 RDW 15.8 H Plt Count 154 Neut % (Auto) 66.6 Lymph % (Auto) 24.3 L [place] % (Auto) 5.7 Eos % (Auto) 3.1 Baso % (Auto) 0.3 Neut # (Auto) 6600 Lymph # (Auto) 2400 [place] # (Auto) 600 Eos # (Auto) 300 Baso # (Auto) 0 PFSH Medical History Gross hematuria Arthritis Psoriasis COVID-19 virus infection (09/09/21) Acute idiopathic thrombocytopenic purpura Chest pain Diabetes Hyperlipidemia Hypertension Cystocele with rectocele Surgical History Hx of cholecystectomy History of knee replacement (2011) Status post ovarian cystectomy (1989) Family History Sister Cancer Sister Cancer Mother Diabetes mellitus Other Hypertension UTI (urinary tract infection) Social History marital status: number of children: 3 household members: none Smoking Status: Never smoker alcohol intake: current caffeine: Yes Type(s) of exercise: walking Discharge Plan Discharge Plan Patient Disposition: SNF Transfer to: [facility] Provider Discharge Comment: -Okay to shower -Empty drain as instructed -Do not submerge wounds in water until seen in follow-up. -No lifting >10 lbs x 4 weeks. -Walking only for exercise for 4 weeks. -No driving while taking narcotics. Discharge orders & Medications Prescriptions: New acetaminophen [Tylenol] 325 mg capsule 650 mg PO QID PRN (Reason: pain) Qty: 60 0RF oxycodone 10 mg tablet 10 mg PO Q6H PRN (Reason: pain) Qty: 30 0RF docusate sodium [Colace] 100 mg capsule 100 mg PO BID Qty: 30 0RF Continued atorvastatin [Lipitor] 20 MG tablet 20 mg PO DAILY Qty: 0 glimepiride [Amaryl] 4 MG tablet 8 mg PO DAILY Qty: 0 triamterene-hydrochlorothiazid 37.5 MG/25 MG tablet 1 tab PO DAILY Qty: 0 (DME) Self-Catheter, Female 14 Fr misc See Rx Instructions .Route Qty: 90 11RF Rx Instructions: Use as directed at night to self-cath as needed, every couple of hours fexofenadine [Allergy Relief (fexofenadine)] 180 mg Tablet 180 mg PO DAILY ferrous sulfate 325 mg (65 mg iron) Tablet 325 mg PO DAILY Jardiance 10 mg Tablet 10 mg PO DAILY metformin 1,000 mg tablet 1,000 mg PO BID losartan 25 mg tablet 50 mg PO DAILY cyanocobalamin (vitamin B-12) 1,000 mcg/mL kit 1,000 mcg SUBCUT QMONTH Patient Comments: FIRST OF THE MONTH cyclosporine 0.05 % drops 1 drp ophthalmic (eye) Q12H fenofibrate nanocrystallized 48 mg tablet 48 mg PO DAILY TheraTears 0.25 % drops 1 drp ophthalmic (eye) DAILY Trulicity 0.75 mg/0.5 mL pen injector 0.75 mg SUBCUT QWEEK Discontinued acetaminophen-codeine 30 MG/300 MG tablet 2 tab PO Q6H PRN (Reason: Pain (Scale Score 4-6)) Qty: 0 Follow up/Referrals: Gus Montgomery MD [Physician] - Diet/Activity/Treatments Diet: Carb-consistent/Diabetic Skin/Wound/Dressing Care Report to your healthcare provider any signs of infection, such as:: chills, fever, increased pain, unusual drainage and unusual redness Visit Report/Discharge Packet Instructions: DI for Hernia Repair, How to Care for Your [place] Catheter -- Female, [facility]: Wound Care Stand Alone Forms: Patient Portal/API, Stroke Signs & Symptoms Discharge Data Primary Care Provider: Jackie Muñoz
--- NOTE | 2023-11-02 11:09 | OT.IPNOTE ---
Attempted to see pt for OT and pt refused as going to SNF later.
--- NOTE | 2023-11-02 11:36 | CM.DPC ---
DCP Continued: Reviewed EMR and team rounds for pt?s medical status. Per surgeon, pt is ready for discharge to SNF Rehab. DCP spoke with Rosi at [facility], pt can be accepted today. Cabulance transport arranged for pt at 1300. DCP completed PASRR, SW Admin kindly faxed over packet to [facility]. Med list signed, pending hard copy of narcotic medications. Plan: Pt to discharge to [facility] at 1300 via cabulance. CM Team will continue to follow for coordination of discharge plans. MIRNA Hall
--- NOTE | 2023-11-02 12:53 | PC.NURSE ---
Dayshift: Pt escorted out by [facility] transport via wheelchair; ASSEMBLING MACHINE OPERATOR gave [facility] packet including hard scripts. Pt took all belongings with her. Called report to Jessica at [facility].
== END 2023-11-02 12:15 | DRG 354 ==
LOC: OR 11-01 10:25 → AC 11-01 10:25
PROVIDERS: Admitting Provider Surgery; PCP Family Medicine; Referring Provider Surgery; Visit Provider Surgery
PROC: 0WUF0JZ Supplement Abdominal Wall with Synthetic Substitute, Open Approach (ICD-10-PCS; principal; 2023-10-31 11:15)
DX: K43.2 Incisional hernia without obstruction or gangrene (principal); D69.3 Immune thrombocytopenic purpura; G89.18 Other acute postprocedural pain; E66.9 Obesity, unspecified; E11.9 Type 2 diabetes mellitus without complications; E78.5 Hyperlipidemia, unspecified; I10 Essential (primary) hypertension; Z68.36 Body mass index [BMI] 36.0-36.9, adult; Z79.85 Long-term (current) use of injectable non-insulin antidiabetic drugs; Z79.84 Long term (current) use of oral hypoglycemic drugs; T83.038A Leakage of other urinary catheter, initial encounter; E11.628 Type 2 diabetes mellitus with other skin complications; L40.9 Psoriasis, unspecified
CPT/HCPCS: 11042; 36415; 49618; 51702; 82962; 85025; 97162; 97166; 97530; 99283; C1781; A9270; C9290; J0136; J0690; J1100; J1170; J1650; J1815; J2405; J2704